=== PATIENT | female | born 1945 | race Caucasian/White ===

== ENCOUNTER 2019-11-06 15:23 | Outpatient (CLI) | payer MEDICARE, SELFPAY ==
--- NOTE | ~2019-11-06 | US_ITS ---
EXAMINATION: US venous doppler LE RT DATE: 11/06/2019 16:03 INDICATION: Right lower limb pain TECHNIQUE: Gan scale images without and with compression and Doppler images of the right lower extre mity veins were obtained. COMPARISON: None FINDINGS: The right common femoral vein, profunda femoral vein, femoral vein, popliteal vein, peronea l trunk, posterior tibial veins, and greater saphenous vein are patent. IMPRESSION: 1. Patent right lower extremity veins. No evidence of deep venous thrombosis. Reviewed, dictated and finalized at location A.
--- NOTE | ~2019-11-06 | XR_ITS ---
XR knee RT 3V DATE: 11/06/2019 16:05 INDICATION: Right knee pain. No known injury. TECHNIQUE: Doland, AP and lateral views COMPARISON: None FINDINGS: No fracture or dislocation or joint effusion. No periosteal reaction or bone destruction. J oint spaces are preserved. No right hepatic intra-articular loose body or chondrocalcinosis. IMPRESSION: No significant abnormality Reviewed, dictated and finalized at location B. IMPRESSION: No significant abnormality
== END 2019-11-06 15:24 | disposition home or self-care (01) ==
LOC: ANHIMG 15:25
PROVIDERS: PCP Family Medicine; Visit Provider Family Medicine
DX: M25.561 Pain in right knee (principal); M79.89 Other specified soft tissue disorders
CPT/HCPCS: 73562; 93971

== ENCOUNTER 2020-01-22 08:15 | Outpatient (RCR) | payer MEDICARE, SELFPAY ==
--- NOTE | 2019-12-24 10:52 | LSVTBIG ---
PHYSICAL THERAPY EVALUATION FOR LSVT BIG Thank you for referring Ami Rivera to [facility].? The patient is scheduled to be seen for therapy? 2x/week for 4 weeks. Please review, sign, date and return this plan of care IVETTE. I agree with and certify that the following plan of care is medically necessary. Referring Physician Date Attending Provider: Gavin Meredith MD Physical Therapy Evaluation Outpatient Past Medical History Neurological History Hx Parkinson's Disease Yes Evaluation Information Problem Diagnosis Parkinson's Disease Cause insidious Self Report Pain Level 0 Pain Score Pain Score 0: Self Report Parkinson's Related History Diagnosis/Stage Date Of Initial 2009 Diagnosis What Were Your Initial Symptoms Of loss of smell 2002, 2007-: Parkinson's Disease? handwriting worsened and balance difficulties Do You Have A Tremor? No Medication For Parkinson's Disease avolac, carbadopa/levadopa, synamet In What Ways Are Your Medications For assists with freezing and Parkinson's Helpful? walking; would not be able to function without it Do You Experience On/Off Symptoms? yes, freezing increases when Please Describe time to take next dose of medication Do You Experience Dyskinesias? yes Have You Had Neurosurgery? Please none Describe Have You Had Orthopedic Surgery? 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 Changes In Speed Of , tree roots, etc) Movement With Walking,Getting Dressed, Increased Difficulty Getting Into/Out Of Bed Or Chairs, Balance Impairments What Are Your Current Symptoms? dyskinesia, freezing, difficulty walking a straight line What Is The Most Significant Problem feeling increased anxiety with Related To Movement Today? Are There Any folding laundry; takes a Activities That You Now Need Help With couple
--- NOTE | 2019-12-26 08:29 | OTOPEVAL ---
Addendum entered by Jaime Barry, RADHA/Gerard, CHT 12/26/19 08:29: Note created in error - Please refer to LSVT Evaluation Note Original Note: Thank you for referring Ami Rivera to [facility].? The patient is scheduled to be seen for therapy? ____x/week for ___ weeks. Please review, sign, date and return this plan of care IVETTE. I agree with and certify that the following plan of care is medically necessary. Referring Physician Date Admitting Provider: Attending Provider: Gavin Meredith MD Referring Provider:
--- NOTE | 2019-12-26 08:29 | LSVTBIG ---
OCCUPATIONAL THERAPY EVALUATION REPORT 12/26/2019 Thank you for referring Ami Rivera to [facility].? The patient is scheduled to be seen for therapy? 2x/week for 4 weeks for LSVT BIG treatment program for PD. Please review, sign, date and return this plan of care IVETTE. I agree with and certify that the following plan of care is medically necessary. Referring Physician Date Referring Provider: Gavin Meredith MD *LSVT BIG Evaluation Therapy Discipline Therapy Discipline Therapy Discipline Occupational Therapy Therapy Assessment Status Assessment Status Assessment Status Evaluation Outpatient Past Medical History Neurological History Hx Parkinson's Disease Yes Evaluation Information Problem Diagnosis Parkinson's Disease Pain Assessment Timing of Pain Assessment Timing of Pain Assessment Assessment Self Report Self Report Pain Level 0 Pain Score Pain Score 0: Self Report Parkinson's Related History Parkinson's Related History Diagnosis/Stage Date Of Initial 2009 Diagnosis What Were Your Initial Symptoms Of loss of smell 2002, 2007-, Parkinson's Disease? handwriting worsened and balance difficulties Do You Have A Tremor? No Medication For Parkinson's Disease avolac, carbadopa/levadopa, synamet In What Ways Are Your Medications For assists with freezing and Parkinson's Helpful? walking; would not be able to function without it Do You Experience On/Off Symptoms? yes, freezing increases when Please Describe time to take next dose of medication Do You Experience Dyskinesias? yes Have You Had Neurosurgery? Please none Describe Have You Had Orthopedic Surgery? 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 full flight of steps, states she is very cautious going up and down steps) - radha comes over to carry laundry up /down; Cooks and cleans - states she breaks up these tasks throughout the week so she can complete them when she feels good /with medication dosages Motor Symptoms Motor Symptoms When Did You First Start To Notice Makes sure she's aware of her Changes In Movement You Associate with surroundings, especially in PD unfamiliar environments ( Query Text:i.e. Changes In Speed Of uneven sidewalks, tree roots, Movement With Walking,Getting Dressed,
--- NOTE | 2020-01-21 09:12 | LSVTBIG ---
OCCUPATIONAL THERAPY DISCHARGE NOTE 01/21/2020 Thank you for referring Ami Rivera to [facility] The patient is being discharged from OT with HEP. She is currently independent with LSVT HEP and utilizing strategies for improved movement quality. Please review, sign, date and return this D/C Note IVETTE. I agree with and certify that the following plan of care is medically necessary. Referring Physician Date Admitting Provider: Attending Provider: Gavin Meredith MD Referring Provider: *LSVT BIG Re-Evaluation & Discharge Evaluation Information Problem Diagnosis Parkinson's Disease Additional Evaluation Detail Ami is a 74 year-old, right handed female who has been participating in outpatient occupational and physical therapy for treatment of his neurological movement disorder , PD, utilizing LSVT BIG treatment program. She has been very compliant and cooperative throughout the program. The program has included a series of repetitive exercises and functional tasks targeting flexibility, challenging his balance, facilitating big movements, and big posture. These exercises are aimed at increased amplitude of movement while addressing the sensorimotor mismatch of PD with the end goal of retraining her perception of normal movement. Subjective Information Patient reports that this Query Text:As Reported By Patient/ program has helped her come up Family with strategies to help her move better. She notes that she thinks of one internal cue of BIG to move better. She notes improvements with her ability to complete handwriting, opening containers, putting money back into her wallet, folding laundry, stairs, walking with less freezing, buttons, and has been sleeping better. Pain Assessment Timing of Pain Assessment Timing of Pain Assessment Re-assessment Self Report Self Report Pain Level 0 Pain Score Pain Score 0:
--- NOTE | 2020-01-22 09:06 | LSVTBIG ---
PHYSICAL THERAPY DISCHARGE NOTE Thank you for referring Ami Rivera to [facility].? Please review, sign, date and return this plan of care IVETTE. I agree with and certify that the following plan of care is medically necessary. Referring Physician Date Attending Provider: Gavin Meredith MD Discharge Diagnosis Parkinson's Disease Cause insidious Subjective Information Ami has participated in LSVT Query Text:As Reported By Patient/ BIG program for Parkinson's Family Disease for the last 4 weeks. She reports that she feels as though she is sleeping better, moving better, moving her arms better while walking. Pain Assessment Timing of Pain Assessment Timing of Pain Assessment Re-assessment Self Report Self Report Pain Level 0 Self Report Pain Assessment Balance Assessment Tinnetti Balance 28/28 Interpretation of Scores Low risk for falls (>24) CORDERO Balance Evaluation Total Score 56/56 Time Up Go (TUG) Timed Up and Go Test (TUG) (Seconds) 7 Assistive Devices None Comments 1month ago = 8seconds 5 Time Sit to Stand Time in Seconds 8.86 5 Time Sit to Stand Comments 1month ago = 12.86 Dynamic Gait Index Total Score 24/24 Functional Gait Assessment Total Score 29/30 Gait Assessment 6 Minute Walk Total Distance (feet) 1,573 6 Minute Walk Gait Speed Score (feet/ 4.36 second) 6 Minute Gait Comments normal arm swing, good heel strike and toe off 1month ago = 1217, 3.38ft/ second PT Clinical Summary Ami has met her functional goals at this time. She demonstrates normal or nearly normal balance, gait speed, and functional strength as evidenced by the TUG, 5xSTS, Cordero Balance Assessment, functional gait assessment, and Tinnetti tests. We will discharge from PT at this time . PT Services Indicated Yes Rehabilitation Potential Good Patient/Caregiver's Personal Goals for improve freezing Rehabilitation Potential Barriers to Goal Achievements None Support Requirements For Optimal None Lutz Patient/Caregiver Informed of Benefits/ Yes Risks of Rehabilitation Patient/
== END 2020-01-22 11:07 | disposition home or self-care (01) ==
LOC: ANHPT 08:15
PROVIDERS: PCP Family Medicine; Visit Provider Psychiatry & Neurology Neurology
DX: G20 Parkinson's disease (principal)
CPT/HCPCS: 97110; 97116; 97161; 97165

== ENCOUNTER 2021-02-10 08:44 | Outpatient (CLI) | payer MEDICARE, SELFPAY ==
--- NOTE | ~2021-02-10 | MM_ITS ---
EXAMINATION: MM screening james BI w lucien HISTORY: Screening mammogram TECHNIQUE: Craniocaudal and mediolateral oblique 3-D tomosynthesis images were obtained and synthetic 2-D images were generated. CAD analysis was submitted and interpreted. COMPARISON: No prior mammogram is available for comparison at this institution. BREAST PARENCHYMAL COMPOSITION: The breasts are heterogeneously dense, which may obscure small masses . FINDINGS: There is no evidence of suspicious mass, calcification, or architectural distortion to sugg est malignancy in either breast. There has been no suspicious interval change. IMPRESSION: 1. No mammographic evidence of malignancy. 2. Recommend routine screening mammography in one year. BI-RADS Category 1: Negative Reviewed, dictated and finalized at location A.
--- NOTE | ~2021-02-10 | DEXA_ITS ---
Bone Density Report Name: Ami Rivera Age: 75 Sex: Female Ethnicity: White Date of : 1945 Indication: postmenopausal; Referring Provider: Clary Johnson Study: Bone densitometry was performed. Exam Date: February 10, 2021 Accession number: [id number] Bone Density: Region BMD T-score Z-score Classification AP Spine (L1, L2) 0.770 -1.9 0.3 Osteopenia Femoral Neck (Left) 0.512 -3.0 -1.0 Osteoporosis Total Hip (Left) 0.695 -2.0 -0.3 Osteopenia Total Hip Bilateral Avg 0.651 -2.4 -0.7 Osteopenia Femoral Neck (Right) 0.511 -3.0 -1.0 Osteoporosis Total Hip (Right) 0.606 -2.8 -1.0 Osteoporosis World Health Organization criteria for BMD impression classify patients as: Normal (T-score at or above -1.0), Osteopenia (T-score between -1.0 and -2.5), or Osteoporosis (T-score at or below -2.5). 10-year Fracture Risk: FRAX not reported because: Some T-score for Spine Total or Hip Total or Femoral Neck at or below -2.5 Treated for osteoporosis Clinical Information Provided by Patient: Is being treated for osteoporosis Has used the following medications: Fosamax (i.e. alendronate), Vitamin D Patient maximum height was 64 Menopause Age: 52 Does not regularly consume dairy products Drinks caffeinated beverages Onset of menses at age 15 Number of children 0 Impression: The patient has osteoporosis, based on the Left Femoral Neck T-score. Discussion: It is important to ask patients whether they are taking their medications and to encourage continued and appropriate compliance with their osteoporosis therapies to reduce fracture risk. It is also important to review their risk factors and encourage appropriate calcium and vitamin D intakes, exercise, fall prevention and other lifestyle measures. Follow-Up: Consider a repeat BMD and Vertebral Fracture Assessment (VFA) exam in 2 years or sooner if medically necessary, to reassess this patient's status. Reported by: EDWARD on 02/10/2021 9:12:00 AM. Reviewed, dictated and finalized at location A. BRIANA
== END 2021-02-10 08:45 | disposition home or self-care (01) ==
PROVIDERS: PCP Family Medicine; Visit Provider Nurse Practitioner
DX: Z12.31 Encounter for screening mammogram for malignant neoplasm of breast (principal); Z78.0 Asymptomatic menopausal state; M85.88 Other specified disorders of bone density and structure, other site; M81.0 Age-related osteoporosis without current pathological fracture; M85.852 Other specified disorders of bone density and structure, left thigh; M85.851 Other specified disorders of bone density and structure, right thigh
CPT/HCPCS: 77063; 77067; 77080

== ENCOUNTER 2021-08-07 10:03 | Emergency (ER) | payer MEDICARE, SELFPAY ==
--- NOTE | ~2021-08-07 | CT_ITS ---
EXAMINATION: CTA chest PE protocol DATE: 08/07/2021 14:28 INDICATION: Shortness of breath, COVID 19 TECHNIQUE: Computed tomography angiography (CTA) of the chest was performed with 100 mL Omnipaque-350 intravenous contrast timed to evaluate the pulmonary arteries. Coronal maximum intensity projection 3D-reconstructions were created by the technologist. The dose-length product (DLP) was 179.43 mGy-cm. Automated exposure control and iterative reconstruction technique were employed. COMPARISON: None. FINDINGS: The pulmonary arteries are well-opacified. No pulmonary embolism is identified. There are p atchy nodular and groundglass opacities scattered throughout the lungs. There is no pleural effusion or pneumothorax. No pathologically enlarged thoracic lymph nodes are identified. The heart size is no rmal. There is a small sliding hiatal hernia. There is mild thoracic spondylosis. IMPRESSION: 1. No pulmonary embolus. 2. Multifocal pneumonia, likely COVID 19 pneumonia. Reviewed, dictated and finalized at location F.
--- NOTE | 2021-08-07 10:39 | ED.GENADULT ---
HPI - General Adult General Chief complaint: Unspecified Stated complaint: throat pain, seen at last noc Time Seen by Provider: 08/07/21 10:14 Source: patient and family Mode of arrival: ambulatory Limitations: no limitations History of Present Illness HPI narrative: 75-year-old female with history of Parkinson's disease presenting to the emergency department for evaluation of multiple days of nasal congestion and sore throat. Patient initially thought that her symptoms were due to seasonal allergies but she is unable to take decongestants due to her underlying Parkinson's. Patient did have follow-up with a prompt care yesterday and was started on a Z-Wilbert. Patient did start taking these medications last night. Patient presented to the emergency department today complaining of worsening sore throat. Patient denies any cough chest pain or shortness of breath. Patient did receive her flu and COVID-vaccine. Related Data Home Medications Medication Instructions Recorded Confirmed cholecalciferol (vitamin D3) 50 50 mcg PO DAILY 12/16/19 03/16/21 mcg (2,000 unit) capsule cranberry 400 mg capsule 400 mg PO DAILY 12/16/19 03/16/21 Allergies Allergy/AdvReac Type Severity Reaction Status Date / Time No Known Allergies Allergy Verified 08/07/21 10:56 Review of Systems Review of Systems: CONSTITUTIONAL: Denies fever, chills, or sweats. EYES: Denies visual changes, redness, or discharge. ENT: See HPI CARDIOVASCULAR: Denies chest pain, palpitations, or edema. RESPIRATORY: Denies cough or dyspnea. GASTROINTESTINAL: Denies abdominal pain, nausea, vomiting, or diarrhea. GENITOURINARY: Denies dysuria or hematuria. SKIN: Denies rash or itching. MUSCULOSKELETAL: Denies back pain, joint pain, or myalgia. NEUROLOGIC: Denies headache, numbness, or weakness. [facility] Past Medical History Medical History Dyslipidemia Parkinson disease Unspecified osteoarthritis, unspecified site Vitamin B12 deficiency Vitamin D deficiency Surgical History Surgical History History of bunionectomy of both great toes 2009 and 2010 Family History Family History Other Family history of coronary artery disease Social History Social History Smoking status: Never smoker Second hand tobacco smoke exposure: No Alcohol intake: never Substance use: never Substance use type: does not use Gender identity (if verbalized by the patient): Female Spiritual care concerns: No Exam Narrative: APPEARANCE: Well appearing, no pain, no distress, well-nourished. HEAD: normocephalic, atraumatic. EYES: PERRLA/EOMI, conjunctivae clear. NOSE: Normal no drainage EARS:TMS clear with good light reflex. THROAT: Mild erythema of posterior pharynx. No edema, no asymmetry. No swelling or abscess. NECK: Supple. No adenopathy, no masses. Some stridor RESPIRATORY: Airway patent, respirations nonlabored. Clear to auscultation bilaterally, no rales, rhonchi, wheezing. CARDIOVASCULAR: Regular rate and rhythm without murmurs rubs or gallops. ABDOMINAL: Soft, nontender, nondistended, normal bowel sounds MUSCULOSKELETAL: Moves all extremities. Strength/ROM intact, No edema, No calf tenderness. NEURO: Alert. Cranial nerves II through XII intact. Grossly intact SKIN: Warm, dry. Normal Color Course Course Emergency Course: Patient did test positive for COVID. Patient was initially febrile upon arrival. Patient's fever did improve with treatment with antipyretics. Patient feels improved with treatment. Patient is requesting discharge to home. Heart rate is also improved. Resting heart rate is closer to 100. CTA was negative for pulmonary embolism. CTA did show evidence of COVID-pneumonia as well. Patient was encouraged to have close contact with her neurologist
[2021-08-07 10:53] VITALS: BP 152/71; PULSE 120; RESP 20; TEMP 38.6; O2SAT 94
[2021-08-07 10:56] VITALS: PULSE 120
[2021-08-07] MEDS: SODIUM CHLORIDE 0.9% IV 1,000 ML 999 ML IV CONT ×2 (11:02→13:10)
[2021-08-07 11:32] LABS: Influenza A QL RT-PCR Negative (Negative); Influenza B QL RT-PCR Negative (Negative); SARS-CoV-2 RNA PCR Positive
[2021-08-07 11:49] VITALS: BP 136/70; PULSE 114; RESP 24; TEMP 37.3; O2SAT 97
[2021-08-07 13:09] VITALS: BP 137/65; PULSE 108; RESP 19; O2SAT 94
[2021-08-07 13:10] LABS: Basophils Percent Auto 0.3 % (0.2-1.2); Hemoglobin 14.2 g/dL (12.0-15.0); Immature Granulocyte Absolute 0.05 K/mm3 (0.00-0.031); Immature Granulocyte Percent A 0.5 % (0-0.5); Lymphocytes Absolute Auto 0.33 K/mm3 (0.9-3.2); Lymphocytes Percent Auto 3.3 % (18.3-44.2); Mean Corpuscular HGB Conc 33.8 g/dl (32-36); Mean Corpuscular Hemoglobin 30.1 pg (26-34); Mean Platelet Volume 11.1 fl (7.4-10.4); Monocytes Absolute Auto 0.8 K/mm3 (0.1-0.6); Monocytes Percent Auto 7.7 % (2.6-8.5); Neutrophils Absolute Auto 8.9 K/mm3 (1.3-6.7); Neutrophils Percent Auto 88.2 % (45.5-73.1); Platelet Count Result 162 k/mm3 (150-375); Red Blood Count 4.72 M/mm3 (4.2-5.4); Red Cell Distribution Width 11.9 % (11.5-14.5); White Blood Count 10.1 K/mm3 (4.5-10.0)
[2021-08-07] MEDS: IBUPROFEN 600 MG TABLET PO (13:10)
--- NOTE | 2021-08-07 13:20 | PC.NURSE ---
called pt silas at [phone] and gave update on pt status per request
[2021-08-07 13:24] LABS: Alanine Aminotransferase 6 U/L (4-35); Albumin Level 4.1 g/dL (3.5-5.1); Alkaline Phosphatase 80 U/L (38-126); Anion Gap 7 mmol/L (8-16); Aspartate Amino Transferase 21 U/L (14-36); Bilirubin,Total 0.8 mg/dL (0.2-1.3); Blood Urea Nitrogen 13 mg/dL (7-17); Calcium 8.2 mg/dL (8.4-10.2); Carbon Dioxide 25 mmol/L (22-30); Chloride 103 mmol/L (98-107); Estimated CRCL calculation 71 ml/min; Estimated Glomerular Filt Rate > 60; Glucose 108 mg/dL (65-110); Potassium 3.3 mmol/L (3.4-5.0); Sodium 135 mmol/L (137-145)
[2021-08-07 14:39] VITALS: BP 135/68; PULSE 114; RESP 22; O2SAT 98
[2021-08-07 15:31] VITALS: PULSE 110; RESP 16; O2SAT 96
== END 2021-08-07 15:32 | disposition home or self-care (01) ==
PROVIDERS: Emergency Provider Emergency Medicine; PCP Nurse Practitioner
DX: U07.1 COVID-19 (principal); J12.82 Pneumonia due to coronavirus disease 2019; G20 Parkinson's disease; E78.5 Hyperlipidemia, unspecified; M19.90 Unspecified osteoarthritis, unspecified site; E53.8 Deficiency of other specified B group vitamins; E55.9 Vitamin D deficiency, unspecified
CPT/HCPCS: 36415; 71275; 80053; 85025; 85380; 87081; 87502; 87880; 96361; 96365; 99284; A9270; C9803; J0131; J7030; Q9967; U0003; U0005

== ENCOUNTER 2021-08-08 09:43 | Emergency (ER) | payer MEDICARE, SELFPAY ==
--- NOTE | ~2021-08-08 | XR_ITS ---
EXAMINATION: XR soft tissue neck DATE: 08/08/2021 14:22 INDICATION: Foreign body sensation. Sore throat. TECHNIQUE: 2 views the neck soft tissues were obtained. COMPARISON: None. FINDINGS: The adenoids, palatine tonsils, prevertebral soft tissues, epiglottis, and airway are aurora l. No radiopaque foreign body. There is severe cervical spondylosis. IMPRESSION: 1. Normal neck soft tissues. Reviewed, dictated and finalized at location A.
[2021-08-08 09:52] VITALS: BP 126/68; PULSE 105; RESP 14; TEMP 37.1; O2SAT 99
[2021-08-08 13:29] VITALS: BP 121/76; PULSE 92; RESP 22; O2SAT 96
[2021-08-08 13:33] VITALS: RESP 22; O2SAT 96
--- NOTE | 2021-08-08 13:44 | ED.GENADULT ---
HPI - General Adult General Chief complaint: Unspecified Stated complaint: COVID+, pill in throat Time Seen by Provider: 08/08/21 13:36 History of Present Illness HPI narrative: Patient is a 75-year-old female with a history of Parkinson's who presents emergency department with throat pain with swallowing since yesterday. She states the pain developed after taking a Tylenol pill yesterday, and she states that she felt that the pill was stuck. No coughing, choking, difficulty breathing, hematemesis, abdominal pain. The pain/foreign body sensation at rest has gone down, but she is still having some irritation/ mild pain with swallowing. Denies history of difficulty swallowing. She has been tolerating her oral medications. Related Data Home Medications Medication Instructions Recorded Confirmed cholecalciferol (vitamin D3) 50 50 mcg PO DAILY 12/16/19 03/16/21 mcg (2,000 unit) capsule cranberry 400 mg capsule 400 mg PO DAILY 12/16/19 03/16/21 Allergies Allergy/AdvReac Type Severity Reaction Status Date / Time No Known Allergies Allergy Verified 08/07/21 10:56 Review of Systems Review of Systems: Gen.: Denies fevers or chills Eyes: Denies eye pain or visual change ENT: Reports foreign body sensation in throat. Denies congestion Respiratory: Denies shortness of breath or cough CV: Denies chest pain or palpitations GI: Denies abdominal pain nausea, emesis or diarrhea denies burning, urgency, frequency or hematuria Musculoskeletal: Denies back pain or muscle pain Neuro: Denies numbness, tingling, weakness or focal weakness Skin: Denies rash Except as documented, all other systems reviewed and negative All systems reviewed & are unremarkable except as noted in HPI and below PMFSH Past Medical History Medical History Dyslipidemia Parkinson disease Unspecified osteoarthritis, unspecified site Vitamin B12 deficiency Vitamin D deficiency Surgical History Surgical History History of bunionectomy of both great toes 2009 and 2010 Family History Family History Other Family history of coronary artery disease Social History Social History Smoking status: Never smoker Second hand tobacco smoke exposure: No Alcohol intake: never Substance use: never Substance use type: does not use Gender identity (if verbalized by the patient): Female Spiritual care concerns: No Exam Narrative: APPEARANCE: No acute distress, nontoxic, resting in bed EYES: EOMI HEENT: Normocephalic, atraumatic. No erythema or FB visualized in throat. RESPIRATORY: No respiratory distress. Clear to auscultation bilaterally with no rhonchi wheezing or rales. CARDIOVASCULAR: Regular rate and rhythm without murmurs rubs or gallops. ABDOMINAL: Soft, nontender, nondistended, no rebound or guarding MUSCULOSKELETAL: Moves all extremities. No clubbing, cyanosis or edema. NEURO: Resting tremor present. Awake and alert. Following commands, speech normal. SKIN: Warm, dry. No rashes lesions or abrasions PSYCHIATRIC: Normal affect/mood Course Vital Signs Vital signs: Vital Signs Temperature 98.7 F 08/08/21 09:52 Pulse Rate 105 H 08/08/21 09:52 Respiratory Rate 14 08/08/21 09:52 Blood Pressure 126/68 08/08/21 09:52 Pulse Oximetry 99 08/08/21 09:52 Temperature 98.7 F 08/08/21 09:52 Pulse Rate 98 08/08/21 15:34 Respiratory Rate 20 08/08/21 15:34 Blood Pressure 125/65 08/08/21 15:34 Pulse Oximetry 96 08/08/21 15:34 Medical Decision Making [facility] Narrative Medical decision making narrative: 75-year-old female here with foreign body sensation in throat after swallowing a Tylenol pill yesterday. Improved after sucralfate, no foreign body visualized on x-ray. Low suspicion for aspiration, as patient did no
[2021-08-08] MEDS: SUCRALFATE 1 GM TABLET PO (14:12)
--- NOTE | 2021-08-08 14:14 | PC.NURSE ---
Pt taken to X-ray
[2021-08-08 14:57] VITALS: BP 127/71; PULSE 97; RESP 20; O2SAT 97
[2021-08-08 15:34] VITALS: BP 125/65; PULSE 98; RESP 20; O2SAT 96
== END 2021-08-08 15:37 | disposition home or self-care (01) ==
PROVIDERS: Emergency Provider Emergency Medicine; PCP Nurse Practitioner Women's Health
DX: R07.0 Pain in throat (principal); U07.1 COVID-19; G20 Parkinson's disease; E78.5 Hyperlipidemia, unspecified; M19.90 Unspecified osteoarthritis, unspecified site; E53.8 Deficiency of other specified B group vitamins; E55.9 Vitamin D deficiency, unspecified
CPT/HCPCS: 70360; 99283; A9270

== ENCOUNTER 2021-11-09 12:48 | Emergency (ER) | payer MEDICARE, SELFPAY ==
--- NOTE | ~2021-11-09 | XR_ITS ---
EXAMINATION: XR chest 2V DATE: 11/09/2021 13:14 INDICATION: Chest pain TECHNIQUE: PA and lateral views of the chest are obtained. COMPARISON: None available FINDINGS: The lungs are free of acute opacities. No pleural effusion or pneumothorax. The cardiomedia stinal silhouette is normal. There is moderate thoracic spondylosis. IMPRESSION: 1. No acute cardiopulmonary abnormality. Reviewed, dictated and finalized at location B.
--- NOTE | 2021-11-09 12:50 | ECG_ITS ---
Measurements Intervals Huger Rate: 81 P: 55 LA: 134 QRS: -3 QRSD: 82 T: 27 QT: 363 QTc: 423 Interpretive Statements SINUS RHYTHM EARLY PRECORDIAL R/S TRANSITION BORDERLINE T WAVE ABNORMALITY- INFERIOR LEADS BASELINE WANDER- II, III BORDERLINE ECG Electronically Signed On 11-09-2021 12:57:16 CDT by Jerome Villarreal D.O.
[2021-11-09 12:56] VITALS: BP 104/76; PULSE 91; RESP 24; TEMP 36.3; O2SAT 96
[2021-11-09 13:01] VITALS: PULSE 80; RESP 21; O2SAT 95
--- NOTE | 2021-11-09 13:01 | ED.CHESTPAIN ---
HPI - Chest Pain General Chief Complaint: Chest Pain Stated Complaint: CP Time Seen by Provider: 11/09/21 13:00 Source: patient, RN notes reviewed and old records reviewed Mode of arrival: ambulatory Limitations: no limitations History of Present Illness HPI narrative: 76 years old white female dropped off by her to the emergency room because intermittent episodes of tightness retrosternal go to her jaws, lastS between 10 and 15 minutes each time at rest. Patient denies any similar symptoms at with exertion. Patient been boxing twice a week for parkinsonism for the last 6 years without any symptoms. Patient denies aggravating factors, she gets better if she remaining still, with deep breathing. Currently patient is asymptomatic, last spell of chest tightness was last night at 8 PM. History of hyperlipidemia and parkinsonism. She denies any smoking, drinking or marijuana. Her father have history of coronary artery disease. Related Data Home Medications Medication Instructions Recorded Confirmed cholecalciferol (vitamin D3) 50 50 mcg PO DAILY 12/16/19 09/15/21 mcg (2,000 unit) capsule cranberry 400 mg capsule 400 mg PO DAILY 12/16/19 09/15/21 denosumab 60 mg/mL subcutaneous 60 mg subcut [id number] 09/09/21 09/15/21 syringe (Prolia) Allergies Allergy/AdvReac Type Severity Reaction Status Date / Time No Known Allergies Allergy Verified 09/15/21 10:03 Review of Systems Review of Systems: All systems reviewed & are unremarkable except as noted in HPI and below PMFSH Past Medical History Medical History COVID Dyslipidemia Parkinson disease Unspecified osteoarthritis, unspecified site Vitamin B12 deficiency Vitamin D deficiency Surgical History Surgical History History of bunionectomy of both great toes 2009 and 2010 Family History Family History Other Family history of coronary artery disease Social History Social History Smoking status: Never smoker Second hand tobacco smoke exposure: No Alcohol intake: never Substance use: never Substance use type: does not use Gender identity (if verbalized by the patient): Female Spiritual care concerns: No Exam Narrative: General appearance: Well-developed, well-nourished Skin: Normal color Head: Normocephalic, nontraumatic Eyes: Clear conjunctiva ENT: Oropharynx normal, ears normal, nose normal Neck: Supple, nontender Chest and respiratory: Airway patent, no respiratory distress, no accessory muscle use Heart: Regular rate/rhythm Abdomen: Soft, nontender, no organomegaly, quiet bowel sounds Vascular: Normal peripheral pulses, normal capillary refill. Musculoskeletal: Normal range of motion, nontender back Neurologic: Alert and oriented ?3, [employer] is normal as tested, no gross motor deficit Course Course Emergency Course: Work-up today showed no significant finding to explain patient condition. Patient episodes of pain usually comes at rest. My differential diagnosis are stress-induced, GERD, spontaneous esophageal spasm. Patient reported that she have trouble swallowing which gradually getting worse over the last few months. Parkinsonism could be the underlying cause. I plan to discharge patient on aspirin and omeprazole, and was advised to follow-up with infection preventionist for further evaluation. Vital Signs Vital signs: Vital Signs Temperature 36.3 C L 11/09/21 12:56 Pulse Rate 91 11/09/21 12:56 Respiratory Rate 24 H 11/09/21 12:56 Bl
[2021-11-09 13:06] LABS: Basophils Absolute Auto 0.1 K/mm3 (0.0-0.1); Basophils Percent Auto 0.9 % (0.2-1.2); Eosinophils Absolute Auto 0.2 K/mm3 (0-0.3); Eosinophils Percent Auto 2.7 % (0-4.4); Hematocrit 41.8 % (37.0-47.0); Hemoglobin 14.1 g/dL (12.0-15.0); Immature Granulocyte Absolute 0.02 K/mm3 (0.00-0.031); Immature Granulocyte Percent A 0.3 % (0-0.5); Lymphocytes Absolute Auto 1.84 K/mm3 (0.9-3.2); Lymphocytes Percent Auto 26.1 % (18.3-44.2); Mean Corpuscular HGB Conc 33.7 g/dl (32-36); Mean Corpuscular Hemoglobin 29.9 pg (26-34); Mean Corpuscular Volume 88.7 fl (80-100); Mean Platelet Volume 9.5 fl (7.4-10.4); Monocytes Absolute Auto 0.6 K/mm3 (0.1-0.6); Monocytes Percent Auto 8.7 % (2.6-8.5); Neutrophils Absolute Auto 4.3 K/mm3 (1.3-6.7); Neutrophils Percent Auto 61.3 % (45.5-73.1); Platelet Count Result 225 k/mm3 (150-375); Red Blood Count 4.71 M/mm3 (4.2-5.4); Red Cell Distribution Width 12.1 % (11.5-14.5)
[2021-11-09 13:15] VITALS: O2SAT 92
[2021-11-09 13:20] LABS: Prothrombin Time 12.9 Seconds (11.1-14.7)
[2021-11-09 13:21] LABS: Partial Thromboplastin Time 27.2 SECONDS (22.3-36.8)
[2021-11-09 13:22] LABS: Albumin Level 4.2 g/dL (3.5-5.1); Alkaline Phosphatase 69 U/L (38-126); Anion Gap 6 mmol/L (8-16); Aspartate Amino Transferase 22 U/L (14-36); Bilirubin,Total 0.5 mg/dL (0.2-1.3); Blood Urea Nitrogen 13 mg/dL (7-17); Calcium 8.5 mg/dL (8.4-10.2); Carbon Dioxide 34 mmol/L (22-30); Chloride 101 mmol/L (98-107); Estimated CRCL calculation 70 ml/min; Estimated Glomerular Filt Rate > 60; Glucose 92 mg/dL (65-110); Lipase 62 U/L (23-300); Potassium 3.8 mmol/L (3.4-5.0); Sodium 141 mmol/L (137-145)
[2021-11-09 13:30] VITALS: PULSE 79; RESP 18; O2SAT 97
[2021-11-09 13:34] LABS: Troponin I < 0.012 ng/mL (0.000-0.034)
[2021-11-09 14:10] LABS: Alanine Aminotransferase < 4 U/L (6-35)
[2021-11-09 15:02] VITALS: BP 126/78; PULSE 81; RESP 20; O2SAT 99
== END 2021-11-09 15:02 | disposition home or self-care (01) ==
PROVIDERS: Emergency Provider Emergency Medicine; PCP Family Medicine
DX: R07.9 Chest pain, unspecified (principal); G20 Parkinson's disease; E78.5 Hyperlipidemia, unspecified; Z86.16 Personal history of COVID-19; M19.90 Unspecified osteoarthritis, unspecified site
CPT/HCPCS: 36415; 71046; 80053; 83690; 84484; 85025; 85610; 85730; 93005; 99284

== ENCOUNTER 2022-01-11 19:22 | Emergency (ER) | payer MEDICARE, SELFPAY ==
[2022-01-11] VITALS (22 sets, daily range): BP systolic 137–167; BP diastolic 64–83; PULSE 84–101; RESP 14–22; TEMP 36.2; O2SAT 94–100
--- NOTE | ~2022-01-11 | CT_ITS ---
EXAMINATION: CT abdomen pelvis w con DATE: 01/11/2022 20:34 INDICATION: Epigastric pain and vomiting TECHNIQUE: Computed tomography (CT) of the abdomen and pelvis was performed with 100 mL Omnipaque-350 intravenous contrast. Automated exposure control and iterative reconstruction technique were employe d. The dose-length product was 470.09 mGy-cm. COMPARISON: None FINDINGS: Mild atelectasis in the bilateral lower lobes. Heart size is normal. Small amount of atherosclerotic coronary artery calcification. No pericardial or pleural effusion. Small sliding-type hiatal hernia. Liver, gallbladder, spleen, pancreas, bilateral adrenal glands and right kidney are normal. 1.[address] at the upper pole of the left kidney. No bowel obstruction. Normal appendix. Bladder and bilateral adnexa are unremarkable. The uterus is not identified and has likely been surgically resected. No fr ee intraperitoneal gas or fluid. No pathologically enlarged abdominal or pelvic lymphadenopathy. Mild lumbar levocurvature with severe spondylosis. IMPRESSION: 1. No acute intra-abdominal/pelvic process. 2. Small sliding-type hiatal hernia. Reviewed, dictated and finalized at location A.
--- NOTE | ~2022-01-11 | XR_ITS ---
EXAMINATION: XR chest 2V DATE: 01/11/2022 20:45 INDICATION: Chest pain TECHNIQUE: PA and lateral views of the chest were obtained. COMPARISON: Chest radiograph dated 11/09/[address] dated 01/11/2022 FINDINGS: Mild left basilar atelectasis. No other airspace opacities, pulmonary edema, pleural effusion or pneu mothorax. The cardiomediastinal silhouette is normal. Mild thoracic dextrocurvature with mild to mode rate spondylosis. There is some excreted contrast at the right renal collecting system likely related to the earlier contrast-enhanced CT. IMPRESSION: 1. Mild left basilar atelectasis. Reviewed, dictated and finalized at location A.
--- NOTE | 2022-01-11 19:23 | ECG_ITS ---
Measurements Intervals [place] Rate: 78 P: 34 DE: 134 QRS: -5 QRSD: 89 T: 29 QT: 347 QTc: 397 Interpretive Statements SINUS RHYTHM WITH SINUS ARRHYTHMIA RSR' IN V1 OR V2, PROBABLY NORMAL VARIANT BORDERLINE ST-T WAVE ABNORMALITY- ANTEROLAT/HIGH LAT LEADS BASELINE ARTIFACT- I, II, III, AVR, AVL, AVF, V5-V6 BORDERLINE ECG COMPARED TO ECG 11/09/2021 12:53:19 SINUS ARRHYTHMIA NOW PRESENT Electronically Signed On 01-11-2022 20:18:52 CDT by Jerome Villarreal D.O.
--- NOTE | 2022-01-11 19:34 | ED.GENADULT ---
HPI - General Adult General Chief complaint: Chest Pain Stated complaint: CHEST PAIN Time Seen by Provider: 01/11/22 19:25 History of Present Illness HPI narrative: 76-year-old female with history of Parkinson's disease presented to the emergency department for evaluation of some epigastric pain. Patient states that she had just finished her boxing class and was eating dinner when she had onset of epigastric pain. Patient states that she did have some emesis of phlegm but patient denies any significant nausea. Patient states that her symptoms are improving. Patient denies any associated shortness of breath. Related Data Home Medications Medication Instructions Recorded Confirmed cholecalciferol (vitamin D3) 50 50 mcg PO DAILY 12/16/19 11/14/21 mcg (2,000 unit) capsule cranberry 400 mg capsule 400 mg PO DAILY 12/16/19 11/14/21 denosumab 60 mg/mL subcutaneous 60 mg subcut [id number] 09/09/21 11/14/21 syringe (Prolia) Allergies Allergy/AdvReac Type Severity Reaction Status Date / Time No Known Allergies Allergy Verified 11/11/21 11:27 Review of Systems Review of Systems: CONSTITUTIONAL: Denies fever, chills, or sweats. EYES: Denies visual changes, redness, or discharge. ENT: Denies rhinorrhea, congestion, sore throat, or otalgia. CARDIOVASCULAR: Denies chest pain, palpitations, or edema. RESPIRATORY: Denies cough or dyspnea. GASTROINTESTINAL: See HPI GENITOURINARY: Denies dysuria or hematuria. SKIN: Denies rash or itching. MUSCULOSKELETAL: Denies back pain, joint pain, or myalgia. NEUROLOGIC: Denies headache, numbness, or weakness. [facility] Past Medical History Medical History COVID Dyslipidemia Parkinson disease Unspecified osteoarthritis, unspecified site Vitamin B12 deficiency Vitamin D deficiency Surgical History Surgical History History of bunionectomy of both great toes 2009 and 2010 Family History Family History Other Family history of coronary artery disease Social History Social History Smoking status: Never smoker Second hand tobacco smoke exposure: No Alcohol intake: never Substance use: never Substance use type: does not use Gender identity (if verbalized by the patient): Female Spiritual care concerns: No Exam Narrative: APPEARANCE: Well appearing, no pain, no distress, well-nourished. HEAD: normocephalic, atraumatic. EYES: PERRLA/EOMI, conjunctivae clear. NOSE: Normal no drainage EARS:TMS clear with good light reflex. THROAT: Pharynx clear, no exudate. NECK: Supple. No adenopathy, no masses. RESPIRATORY: Airway patent, respirations nonlabored. Clear to auscultation bilaterally, no rales, rhonchi, wheezing. CARDIOVASCULAR: Regular rate and rhythm without murmurs rubs or gallops. ABDOMINAL: Mild epigastric tenderness to palpation. MUSCULOSKELETAL: Moves all extremities. Strength/ROM intact, No edema, No calf tenderness. NEURO: Alert. Cranial nerves II through XII intact. SKIN: Warm, dry. Normal Color Course Course Emergency Course: Patient had negative serial troponins. Patient was afebrile with no leukocytosis. Patient's electrolytes were within normal limits. Patient had no elevated lipase. Chest x-ray and CT abdomen pelvis showed no acute abnormality. Patient is now tolerating p.o. Suspect esophageal spasm as a possible cause for her symptoms. Low concern for cardiac etiology. Patient does feel improved and is comfortable with the plan for discharge and close follow-up Vital Signs Vital signs: Vital Signs Temperature 97.1 F L 01/11/22 19:23 Pulse Rate 95 01/11/22 19:23 Respiratory Rate 20 01/11/22 19:23 Blood Pressure 138/64 01/11/22 19:23 Pulse Oximetry 98 01/11/22 19:23 Oxygen Delivery Room Air 01/11/22 19:23 Temperat
--- NOTE | 2022-01-11 19:59 | PC.NURSE ---
ASA discontinued per verbal order by Dr. Madsen.
[2022-01-11 20:01] LABS: Basophils Absolute Auto 0.1 K/mm3 (0.0-0.1); Basophils Percent Auto 0.7 % (0.2-1.2); Eosinophils Absolute Auto 0.2 K/mm3 (0-0.3); Eosinophils Percent Auto 2.2 % (0-4.4); Hematocrit 43.8 % (37.0-47.0); Hemoglobin 14.5 g/dL (12.0-15.0); Immature Granulocyte Absolute 0.03 K/mm3 (0.00-0.031); Immature Granulocyte Percent A 0.3 % (0-0.5); Lymphocytes Absolute Auto 2.05 K/mm3 (0.9-3.2); Lymphocytes Percent Auto 22.8 % (18.3-44.2); Mean Corpuscular HGB Conc 33.1 g/dl (32-36); Mean Corpuscular Hemoglobin 30.1 pg (26-34); Mean Corpuscular Volume 91.1 fl (80-100); Mean Platelet Volume 9.9 fl (7.4-10.4); Monocytes Absolute Auto 0.7 K/mm3 (0.1-0.6); Monocytes Percent Auto 7.6 % (2.6-8.5); Neutrophils Percent Auto 66.4 % (45.5-73.1); Platelet Count Result 236 k/mm3 (150-375); Red Blood Count 4.81 M/mm3 (4.2-5.4); Red Cell Distribution Width 12.1 % (11.5-14.5)
[2022-01-11 20:14] LABS: Prothrombin Time 12.3 Seconds (11.1-14.7)
[2022-01-11 20:15] LABS: Alanine Aminotransferase 6 U/L (6-35); Albumin Level 4.4 g/dL (3.5-5.1); Alkaline Phosphatase 72 U/L (38-126); Anion Gap 11 mmol/L (8-16); Aspartate Amino Transferase 25 U/L (14-36); Bilirubin,Total 0.7 mg/dL (0.2-1.3); Blood Urea Nitrogen 16 mg/dL (7-17); Carbon Dioxide 28 mmol/L (22-30); Chloride 100 mmol/L (98-107); Estimated CRCL calculation 59 ml/min; Estimated Glomerular Filt Rate > 60; Glucose 98 mg/dL (65-110); Lipase 93 U/L (23-300); Potassium 3.6 mmol/L (3.4-5.0); Sodium 139 mmol/L (137-145)
[2022-01-11 20:17] LABS: Partial Thromboplastin Time 26.2 SECONDS (22.3-36.8)
[2022-01-11 20:28] LABS: Troponin I < 0.012 ng/mL (0.000-0.034)
--- NOTE | 2022-01-11 20:34 | PC.NURSE ---
Patient off unit to CT.
[2022-01-11 23:13] LABS: Troponin I < 0.012 ng/mL (0.000-0.034)
== END 2022-01-11 23:47 | disposition home or self-care (01) ==
PROVIDERS: Emergency Provider Emergency Medicine; PCP Family Medicine
DX: K22.4 Dyskinesia of esophagus (principal); E78.5 Hyperlipidemia, unspecified; G20 Parkinson's disease; M19.90 Unspecified osteoarthritis, unspecified site; E55.9 Vitamin D deficiency, unspecified
CPT/HCPCS: 36415; 71046; 74177; 80053; 83690; 84484; 85025; 85610; 85730; 93005; 99284; Q9967

== ENCOUNTER 2022-03-23 00:31 | Day surgery (SDC) | payer MEDICARE, SELFPAY ==
[2022-03-14 09:06] VITALS: BMI 21.4
--- NOTE | 2022-03-22 10:25 | PM.HPGS ---
History of Present Illness History of Present Illness Consent: Risks, benefits, and alternatives have been discussed and questions answered. Patient agrees to proceed with procedure. Chief complaint: atypical chest pain; dysphagia Narrative: Ami Rivera is a 76 year old female Who was seen at [facility] 01/03/2022 for midsternal/epigastric pain and vomiting of white phlegm in the middle of eating baked fish and salad.? Denies radiation of pain or SOB. This was described as sharp ache and resolved within 30 minutes with no interventions. She was concerned about a heart attack at that time.? CT of the abdomen and pelvis done in the ER noted no acute abdominal process with a small sliding hiatal hernia and was placed on omeprazole diagnosed with an esophageal spasm (recs reviewed). LFT, CBC, troponin and lipase were normal as well (recs reviewed).? Similar episode in October as well. She denies typical GERD symptoms. She does report dysphagia to solids at suprasternal notch and midchest/epigastric region. She takes small bites and chews up her food really well due to this. Denies dysphagia with liquids or odynophagia. Last colonoscopy 10/26/[address] Steiner with small diverticuli but no polyps, Review of Systems Review of Systems: All systems reviewed & are unremarkable except as noted in HPI and below PMFSH Past Medical History Medical History COVID Dyslipidemia Dysphagia Epigastric pain Parkinson disease Unspecified osteoarthritis, unspecified site Vitamin B12 deficiency Vitamin D deficiency Surgical History Surgical History History of bunionectomy of both great toes 2009 and 2010 Family History Family History Other Family history of coronary artery disease Social History Social History Smoking status: Never smoker Second hand tobacco smoke exposure: No Alcohol intake: former Substance use: never Substance use type: does not use Living arrangements: with family Gender identity (if verbalized by the patient): Female Spiritual care concerns: No Meds Home Medications and Allergies Home Medications Medication Instructions Recorded Confirmed Type cholecalciferol (vitamin D3) 50 50 mcg PO DAILY 12/16/19 03/14/22 History mcg (2,000 unit) capsule cranberry 400 mg capsule 400 mg PO DAILY 12/16/19 03/14/22 History denosumab 60 mg/mL subcutaneous 60 mg subcut [id number] 09/09/21 03/14/22 History syringe (Prolia) simvastatin 20 mg tablet 20 mg PO QHS #90 tabs 09/09/21 03/14/22 Rx carbidopa 25 mg-levodopa 100 mg 1 tablet PO .5XD 03/06/22 03/14/22 History tablet carbidopa ER 25 mg-levodopa 100 mg 1 tablet PO HS 03/06/22 03/14/22 History tablet,extended release rasagiline 1 mg tablet 1 mg PO DAILY 03/06/22 03/14/22 History Allergies Allergy/AdvReac Type Severity Reaction Status Date / Time No Known Allergies Allergy Verified 03/14/22 09:08 Exam Const: General: alert Orientation/consciousness: patient oriented x3 Resp: Auscultation: clear to auscultation bilaterally Cardio: Rhythm: regular rhythm GI: GI Palp: Yes Soft to palpation and No Tenderness to palpation present (GI) Neuro: General: patient oriented x3 Assessment and Plan Assessment and plan (1) Dysphagia: Code(s): R13.10 - Dysphagia, unspecified Status: Acute Assessment and Plan: EGD with possible biopsy or dilatation or cautery.
[2022-03-23 06:52] VITALS: BP 139/76; PULSE 84; RESP 16; TEMP 36.2; O2SAT 98; BMI 21.7
[2022-03-23] MEDS: LACTATED RINGERS 1,000 ML 150 ML IV CONT (07:00)
--- NOTE | 2022-03-23 07:47 | WPDANESEPPF ---
Anes - Initial Pre Proc Eval Procedure: Operation Date: 03/23/22 08:00 Proposed Procedures p Esophagogastroduodenoscopy EGD - Anam Payne MD Date/Time: 03/23/22 07:47 Surgeon: Anam Payne MD Pre Op Diagnosis: atypical chest pain; dysphagia Patient Data Age: 76 Gender: F Height: 1.63 m Weight: 57.3 kg Last Vital Signs Temp 97.1 F L 03/23/22 06:52 Pulse 84 03/23/22 06:52 Resp 16 03/23/22 06:52 BP 139/76 03/23/22 06:52 Pulse Ox 98 03/23/22 06:52 O2 Del Method Room Air 03/23/22 06:52 Allergies Allergy/AdvReac Type Severity Reaction Status Date / Time No Known Allergies Allergy Verified 03/14/22 09:08 Home Medications Medication Instructions Recorded Confirmed Type cholecalciferol (vitamin D3) 50 50 mcg PO DAILY 12/16/19 03/14/22 History mcg (2,000 unit) capsule cranberry 400 mg capsule 400 mg PO DAILY 12/16/19 03/14/22 History denosumab 60 mg/mL subcutaneous 60 mg subcut [id number] 09/09/21 03/14/22 History syringe (Prolia) simvastatin 20 mg tablet 20 mg PO QHS #90 tabs 09/09/21 03/14/22 Rx carbidopa 25 mg-levodopa 100 mg 1 tablet PO .5XD 03/06/22 03/14/22 History tablet carbidopa ER 25 mg-levodopa 100 mg 1 tablet PO HS 03/06/22 03/14/22 History tablet,extended release rasagiline 1 mg tablet 1 mg PO DAILY 03/06/22 03/14/22 History Patient hx anesthesia problems: none Family hx anesthesia problems: none Results Review: All pre-operative results and documents have been reviewed as part of the pre-operative evaluation. COUNTS INCLUDE 234 BEDS AT THE [facility] Past Medical History Medical History COVID Dyslipidemia Dysphagia Epigastric pain Parkinson disease Unspecified osteoarthritis, unspecified site Vitamin B12 deficiency Vitamin D deficiency Surgical History Surgical History History of bunionectomy of both great toes 2009 and 2010 Family History Family History Other Family history of coronary artery disease Social History Social History Smoking status: Never smoker Second hand tobacco smoke exposure: No Alcohol intake: former Substance use: never Substance use type: does not use Living arrangements: with family Gender identity (if verbalized by the patient): Female Spiritual care concerns: No Anes - Eval Final PreProcedure Day of Procedure 03/23/22 07:47 Patient weight: normal Heart: regular rate and rhythm Lungs: clear to auscultation Airway: Mallampati scale class II Neurological: alert and oriented Last oral intake: >/= 8 hours ASA classification: III Emergent: no Anesthetic plan: proceed Anesthesia type and monitoring: general GIVS and standard monitoring Results Review: All pre-operative results and documents have been reviewed as part of the pre-operative evaluation. Informed Consent: The patient's anesthetic plan and its attendant risks and benefits were discussed with the patient/family/POA. Questions were solicited and answers provided to the satisfaction of the patient/family/POA.
[2022-03-23] MEDS: BENZOCAINE (*SP) 60 ML SPRAY CAN (HURRICAINE) 1 SPRAY MUCOUS MEM (07:58)
[2022-03-23 08:14] VITALS: BP 116/73; PULSE 80; RESP 21; O2SAT 95
[2022-03-23 08:24] VITALS: BP 117/75; PULSE 78; RESP 17; O2SAT 97
[2022-03-23 08:34] VITALS: BP 148/88; PULSE 74; RESP 17; O2SAT 98
[2022-03-23 08:44] VITALS: BP 153/92; PULSE 77; RESP 16; O2SAT 100
== END 2022-03-23 08:54 | disposition home or self-care (01) ==
PROVIDERS: PCP Family Medicine; Visit Provider Internal Medicine Gastroenterology
PROC: 0DJ08ZZ Inspection of Upper Intestinal Tract, Via Natural or Artificial Opening Endoscopic (ICD-10-PCS; CPT 43235; principal; 2022-03-23 08:00)
DX: R13.10 Dysphagia, unspecified (principal); K22.2 Esophageal obstruction; R07.89 Other chest pain; E78.5 Hyperlipidemia, unspecified; E53.8 Deficiency of other specified B group vitamins; E55.9 Vitamin D deficiency, unspecified; M19.90 Unspecified osteoarthritis, unspecified site; G20 Parkinson's disease
CPT/HCPCS: 43249; 43239; 88305; C1726; J2704; J7120

== ENCOUNTER 2022-06-19 01:00 | Day surgery (SDC) | payer MEDICARE, SELFPAY ==
[2022-06-06 09:34] VITALS: BMI 21.4
[2022-06-06 09:50] VITALS: BMI 21.4
--- NOTE | 2022-06-16 16:18 | PM.HPGS ---
History of Present Illness History of Present Illness Consent: Risks, benefits, and alternatives have been discussed and questions answered. Patient agrees to proceed with procedure. 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 She returns now for further treatment. Review of Systems Review of Systems: All systems reviewed & are unremarkable except as noted in HPI and below PMFSH Past Medical History Medical History COVID Dyslipidemia Dysphagia Epigastric pain Parkinson disease Unspecified osteoarthritis, unspecified site Vitamin B12 deficiency Vitamin D deficiency Surgical History Surgical History History of bunionectomy of both great toes 2009 and 2010 Family History Family History Other Family history of coronary artery disease Social History Social History Smoking status: Never smoker Second hand tobacco smoke exposure: No Alcohol intake: never Substance use: never Substance use type: does not use Lack of Transportation: No Lack of Food: Never True Current Housing: I Have Housing Concerned About Future Housing: No Difficulty Paying Gas/Electric Bills: No Difficulty Paying for Meds: No Currently Unemployed: No Education: Master's Degree or Higher Difficulty w/ Childcare or Family Care: No Living arrangements: with family Gender identity (if verbalized by the patient): Female Spiritual care concerns: No Meds Home Medications and Allergies Home Medications Medication Instructions Recorded Confirmed Type cholecalciferol (vitamin D3) 50 50 mcg PO DAILY 12/16/19 06/06/22 History mcg (2,000 unit) capsule cranberry 400 mg capsule 400 mg PO DAILY 12/16/19 06/06/22 History denosumab 60 mg/mL subcutaneous 60 mg subcut [id number] 09/09/21 06/06/22 History syringe (Prolia) simvastatin 20 mg tablet 20 mg PO QHS #90 tabs 09/09/21 06/06/22 Rx carbidopa 25 mg-levodopa 100 mg 1 tablet PO Q3H 03/06/22 06/06/22 History tablet carbidopa ER 25 mg-levodopa 100 mg 1 tablet PO HS 03/06/22 06/06/22 History tablet,extended release amantadine HCl 100 mg capsule 100 mg PO DAILY 06/06/22 06/06/22 History rasagiline 1 mg tablet See Rx Instructions .Route 06/14/22 06/19/22 Rx .COMPLEX #90 tabs Allergies Allergy/AdvReac Type Severity Reaction Status Date / Time No Known Allergies Allergy Verified 06/19/22 07:45 Exam Const: General: alert Orientation/consciousness: patient oriented x3 Resp: Auscultation: clear to auscultation bilaterally Cardio: Rhythm: regular rhythm GI: GI Palp: Yes Soft to palpation and No Tenderness to palpation present (GI) Neuro: General: patient oriented x3 Assessment and Plan Assessment and plan (1) Dysphagia: Code(s): R13.10 - Dysphagia, unspecified Status: Acute Assessment and Plan: EGD with possible biopsy or dilatation or cautery.
[2022-06-19 07:48] VITALS: BP 122/62; PULSE 80; RESP 18; TEMP 36.5; O2SAT 99
[2022-06-19] MEDS: LACTATED RINGERS 1,000 ML 150 ML IV CONT (07:58)
--- NOTE | 2022-06-19 08:28 | WPDANESEPPF ---
Anes - Initial Pre Proc Eval Procedure: Operation Date: 06/19/22 09:00 Proposed Procedures p Esophagogastroduodenoscopy - Anam Payne MD Date/Time: 06/19/22 08:28 Surgeon: Anam Payne MD Pre Op Diagnosis: dysphagia Patient Data Age: 76 Gender: F Height: 1.63 m Weight: 56.5 kg Last Vital Signs Temp 36.5 C 06/19/22 07:48 Pulse 80 06/19/22 07:48 Resp 18 06/19/22 07:48 BP 122/62 06/19/22 07:48 Pulse Ox 99 06/19/22 07:48 O2 Del Method Room Air 06/19/22 07:48 Allergies Allergy/AdvReac Type Severity Reaction Status Date / Time No Known Allergies Allergy Verified 06/19/22 07:45 Home Medications Medication Instructions Recorded Confirmed Type cholecalciferol (vitamin D3) 50 50 mcg PO DAILY 12/16/19 06/06/22 History mcg (2,000 unit) capsule cranberry 400 mg capsule 400 mg PO DAILY 12/16/19 06/06/22 History denosumab 60 mg/mL subcutaneous 60 mg subcut [id number] 09/09/21 06/06/22 History syringe (Prolia) simvastatin 20 mg tablet 20 mg PO QHS #90 tabs 09/09/21 06/06/22 Rx carbidopa 25 mg-levodopa 100 mg 1 tablet PO Q3H 03/06/22 06/06/22 History tablet carbidopa ER 25 mg-levodopa 100 mg 1 tablet PO HS 03/06/22 06/06/22 History tablet,extended release amantadine HCl 100 mg capsule 100 mg PO DAILY 06/06/22 06/06/22 History rasagiline 1 mg tablet See Rx Instructions .Route 06/14/22 06/19/22 Rx .COMPLEX #90 tabs Patient hx anesthesia problems: none Family hx anesthesia problems: none Results Review: All pre-operative results and documents have been reviewed as part of the pre-operative evaluation. [facility] Past Medical History Medical History COVID Dyslipidemia Dysphagia Epigastric pain Parkinson disease Unspecified osteoarthritis, unspecified site Vitamin B12 deficiency Vitamin D deficiency Surgical History Surgical History History of bunionectomy of both great toes 2009 and 2010 Family History Family History Other Family history of coronary artery disease Social History Social History Smoking status: Never smoker Second hand tobacco smoke exposure: No Alcohol intake: never Substance use: never Substance use type: does not use Lack of Transportation: No Lack of Food: Never True Current Housing: I Have Housing Concerned About Future Housing: No Difficulty Paying Gas/Electric Bills: No Difficulty Paying for Meds: No Currently Unemployed: No Education: Master's Degree or Higher Difficulty w/ Childcare or Family Care: No Living arrangements: with family Gender identity (if verbalized by the patient): Female Spiritual care concerns: No Anes - Eval Final PreProcedure Day of Procedure 06/19/22 08:28 Patient weight: normal Heart: regular rate and rhythm Lungs: clear to auscultation Airway: Mallampati scale class II Neurological: alert and oriented Last oral intake: >/= 8 hours ASA classification: III Emergent: no Anesthetic plan: proceed Anesthesia type and monitoring: general GIVS and standard monitoring Results Review: All pre-operative results and documents have been reviewed as part of the pre-operative evaluation. Informed Consent: The patient's anesthetic plan and its attendant risks and benefits were discussed with the patient/family/POA. Questions were solicited and answers provided to the satisfaction of the patient/family/POA.
[2022-06-19 09:08] VITALS: BP 104/55; PULSE 74; RESP 26; O2SAT 95
[2022-06-19 09:18] VITALS: BP 109/59; PULSE 74; RESP 12; O2SAT 97
[2022-06-19 09:28] VITALS: BP 122/63; PULSE 75; RESP 18; O2SAT 98
[2022-06-19 09:40] VITALS: BP 115/74; PULSE 77; RESP 19; O2SAT 100
--- NOTE | 2022-06-19 09:51 | SUR.PHASEII ---
Helped patient up to chair following recovery from procedure. Patient did well ambulating to chair. Asked patient whether she wanted assistance getting dressed or if she wanted to do it by herself given her history of Parkinson's and not having any family with her in the recovery room. Patient states she would like to get dressed by herself. Gave patient call light and showed her red button to push for assistance. Noise was heard from recovery room, and upon entering patient was on the floor with pants half way pulled up. Patient is alert and oriented x4. States she lost her balance while putting on her pants. Patient denies any pain at this time, but states she hit her head and left hip. Patient assisted x2 to sit in chair. Vitals stable at pulse 77, O2 100%, BP 115/74, and respirations 19. Neuro check normal. Pedal pulses normal and equal. Patient continues to deny pain and denies the need for any x-rays. Dr. Jarquin in room. Updated Dr. Payne. Called and updated patient's Endy. No questions or concerns voiced from patient or at this time.
--- NOTE | 2022-06-19 10:11 | SUR.PHASEII ---
Endy (patient ) picked patient up at door. Patient did well to ambulated to car. Patient continues to deny any pain or issues. Educated patient and Endy to go to ER for any significant pain or any changes in mental status. Both agree to this and understand.
== END 2022-06-19 10:05 | disposition home or self-care (01) ==
PROVIDERS: PCP Family Medicine; Visit Provider Internal Medicine Gastroenterology
PROC: 0DJ08ZZ Inspection of Upper Intestinal Tract, Via Natural or Artificial Opening Endoscopic (ICD-10-PCS; CPT 43235; principal; 2022-06-19 09:00)
DX: K22.2 Esophageal obstruction (principal); G20 Parkinson's disease; E78.5 Hyperlipidemia, unspecified; E55.9 Vitamin D deficiency, unspecified
CPT/HCPCS: 43249; J2704; J7120

== ENCOUNTER 2023-01-15 08:42 | Outpatient (CLI) | payer MEDICARE, SELFPAY ==
[2023-01-15 13:11] LABS: Basophils Absolute Auto 0.1 K/mm3 (0.0-0.1); Basophils Percent Auto 1.2 % (0.2-1.2); Eosinophils Absolute Auto 0.1 K/mm3 (0-0.3); Eosinophils Percent Auto 1.9 % (0-4.4); Hematocrit 46.4 % (37.0-47.0); Hemoglobin 15.2 g/dL (12.0-15.0); Immature Granulocyte Absolute 0.01 K/mm3 (0.00-0.031); Immature Granulocyte Percent A 0.1 % (0-0.5); Lymphocytes Absolute Auto 1.41 K/mm3 (0.9-3.2); Mean Corpuscular HGB Conc 32.8 g/dl (32-36); Mean Corpuscular Hemoglobin 30.4 pg (26-34); Mean Corpuscular Volume 92.8 fl (80-100); Mean Platelet Volume 11.1 fl (7.4-10.4); Monocytes Absolute Auto 0.4 K/mm3 (0.1-0.6); Monocytes Percent Auto 6.5 % (2.6-8.5); Neutrophils Absolute Auto 4.7 K/mm3 (1.3-6.7); Neutrophils Percent Auto 69.3 % (45.5-73.1); Platelet Count Result 247 k/mm3 (150-375); Red Cell Distribution Width 11.9 % (11.5-14.5); White Blood Count 6.7 K/mm3 (4.5-10.0)
[2023-01-15 13:13] LABS: Alanine Aminotransferase 7 U/L (6-35); Albumin Level 4.1 g/dL (3.5-5.1); Alkaline Phosphatase 67 U/L (38-126); Anion Gap 3 mmol/L (8-16); Aspartate Amino Transferase 27 U/L (14-36); Bilirubin,Total 0.9 mg/dL (0.2-1.3); Blood Urea Nitrogen 15 mg/dL (7-17); Calcium 8.8 mg/dL (8.4-10.2); Carbon Dioxide 35 mmol/L (22-30); Chloride 101 mmol/L (98-107); Cholesterol 141 mg/dL (0-200); Estimated Glomerular Filt Rate > 60; Glucose 79 mg/dL (65-110); HDL Direct 47 mg/dL; Potassium 4.2 mmol/L (3.4-5.0); Sodium 139 mmol/L (137-145); Triglycerides 102 mg/dL (<150)
[2023-01-15 13:24] LABS: LDL Cholesterol Direct 70 mg/dL
[2023-01-15 13:44] LABS: Vitamin D 25 Hydroxy 54.9 ng/mL
== END 2023-01-15 08:43 | disposition home or self-care (01) ==
PROVIDERS: PCP Family Medicine; Visit Provider Family Medicine
DX: M19.90 Unspecified osteoarthritis, unspecified site (principal); Z79.899 Other long term (current) drug therapy; E53.8 Deficiency of other specified B group vitamins; E55.9 Vitamin D deficiency, unspecified; E78.5 Hyperlipidemia, unspecified; Z13.29 Encounter for screening for other suspected endocrine disorder; G20.A1 Parkinson's disease without dyskinesia, without mention of fluctuations
CPT/HCPCS: 36415; 80053; 80061; 82306; 82607; 84443; 85025

== ENCOUNTER 2023-04-30 10:30 | Outpatient (RCR) | payer MEDICARE, SELFPAY ==
--- NOTE | 2023-01-31 11:37 | PTOPEVAL1 ---
Assessment and note entered by Deric Lou Evaluation Information Assessment Status Evaluation Diagnosis Parkinsons Disease Onset 10/31/22 Subjective Information Pt. reports she was diagnosed with PD in 2008. She reports that she went to the doctor due to noticing developed weakness over the past few months. Pt. reports that she had a fall a couple weeks ago in the kitchen. She reports that she got her feet tangled after trying to avoid the dog . She reports that she is still driving and doing most IADL's. She reports she has stopped driving at night due to her balance. She states that her ability to walk at night has declined over the past year. Pt. reports that she has frequent freezing episodes, espeically notable while in bed at night. She recalls 2 falls in the past year. She notes that she has developed recent pain located in the hips. She reports pain is most notable in the morning, but will decrease with activity. She states that her goal is to reduce her pain and be able to improve her movement. Reported Pain Level Pain Score 0: Self Report Assessment PT Clinical Summary Pt. is a 77 year old female who enters the clinic with a diagnosis of PD. She also presents with c/o low back pain on this date. Currently pt. presents with impaired gait, impaired l.e. strength, impaired flexibility, impaired postural awareness and pain on this date. Continued skilled PT is indicated in order to address these areas to allow for improved comfort with IADL performance. Plan of Care Interventions Gait Training,Manual Therapy,Neuro Re-education, Patient/Caregiver Educati,Therapeutic Activities, Therapeutic Exercise PT Services Indicated Yes Treatment Frequency and 2x/week x 10 visits Duration These treatments will address the objective and functional deficits as defined above. The patient will be advanced safely and appropriately in order for the patient to progress towards his/her prior level of function. Additional exercises will be introduced and as well as a comprehensive home exercise program upon discharge, if needed, ?to ensure carryover of functional gains achieved in the clinic. This treatment plan has been reviewed and agreement upon by the patient.
--- NOTE | 2023-01-31 11:37 | OPREHPOC ---
Outpatient Therapy Plan of Care This is a Multidisciplinary Plan of Care that may contain components documented by all disciplines (PT, OT, and ST.) PT Problem 1 PT Problem #1 Knowledge Deficit PT Goal 1 Goal Pt. will be independent with HEP addressing postural awareness, strength and flexibility. Target Visit 2 PT Problem 2 PT Problem #2 Impaired Balance PT Goal 1 Goal Pt. will improve her tinetti score to 22 or greater indicating improved balance and safety. Target Visit 10 PT Problem 3 PT Problem #3 Impaired Gait PT Goal 1 Goal Pt. will complete the 6 minute walk test over a distance of 900' indicating improved gait efficiency. Target Visit 10 PT Problem 4 PT Problem #4 Impaired Strength PT Goal 1 Goal Pt. will present with 4plus/5 bilateral l.e. strength in all mm. groups Target Visit 10 PT Problem 5 PT Problem #5 Impaired Flexibility PT Goal 1 Goal Pt. will present at 15 degrees from full knee extension with the 90/90 test Target Visit 10
--- NOTE | 2023-03-09 11:48 | PCPTNOTE ---
pt did not show for today's reeval. Attempted to call pt- number on chart not longer in service , so was not able to leave her a message.
--- NOTE | 2023-04-12 10:59 | PTOPEVAL1 ---
Assessment and note entered by [facility] Evaluation Information Assessment Status Progress Diagnosis Parkinson's Disease Onset 10/31/22 Subjective Information Pt. reports that she had some recent complications with her that left her unable to attend. She reports she has had a couple recent falls. She states that she is no longer having back pain. She continues to remain concerned in regards to her balance and mobility. She states that she would like to continue with therapy as she feels she can be more consistent with her rehab at this time. Reported Pain Level Pain Score 0: Self Report Assessment PT Clinical Summary The pt. has attended a total of 9 treatment sessions. While she demonstrates no improvement in l.e. strength, she continues to demonstrate gradual progress in regards to balance and functional mobility. She would benefit from continued skilled PT in order to continue to improve her Tinetti score indicating decreased fall risk and to continue to address l.e. strength and flexibility. Plan of Care Interventions Gait Training,Hot Pack/Cold Pack,Manual Therapy, Neuro Re-education,Therapeutic Activities, Therapeutic Exercise PT Services Indicated Yes Treatment Frequency and 2x/week x 8 visits Duration These treatments will address the objective and functional deficits as defined above. The patient will be advanced safely and appropriately in order for the patient to progress towards his/her prior level of function. Additional exercises will be introduced and as well as a comprehensive home exercise program upon discharge, if needed, ?to ensure carryover of functional gains achieved in the clinic. This treatment plan has been reviewed and agreement upon by the patient.
--- NOTE | 2023-05-03 13:01 | PCPTNOTE ---
Pt. account has and documentation will continue on account [id number]. Refer to new account for update pt. status.
--- NOTE | 2023-05-03 13:03 | OPREHPOC ---
Outpatient Therapy Plan of Care This is a Multidisciplinary Plan of Care that may contain components documented by all disciplines (PT, OT, and ST.) PT Problem 1 PT Problem #1 Knowledge Deficit PT Goal 1 Goal Pt. will be independent with HEP addressing postural awareness, strength and flexibility. Target Visit 2 Progress Met PT Problem 2 PT Problem #2 Impaired Balance PT Goal 1 Goal Pt. will improve her tinetti score to 22 or greater indicating improved balance and safety. Target Visit 10 Progress Not Met PT Problem 3 PT Problem #3 Impaired Gait PT Goal 1 Goal Pt. will complete the 6 minute walk test over a distance of 900' indicating improved gait efficiency. Target Visit 10 Progress Partially Met PT Problem 4 PT Problem #4 Impaired Strength PT Goal 1 Goal Pt. will present with 4plus/5 bilateral l.e. strength in all mm. groups Target Visit 10 Progress Not Met PT Problem 5 PT Problem #5 Impaired Flexibility PT Goal 1 Goal Pt. will present at 15 degrees from full knee extension with the 90/90 test Target Visit 10 Progress Partially Met
== END 2023-05-01 12:29 | disposition home or self-care (01) ==
LOC: ANHPT 10:30
PROVIDERS: PCP Family Medicine; Visit Provider Family Medicine
DX: G20.A1 Parkinson's disease without dyskinesia, without mention of fluctuations (principal)
CPT/HCPCS: 97110; 97112; 97116; 97161; 97530; 99199

== ENCOUNTER 2023-05-11 07:56 | Outpatient (CLI) | payer MEDICARE, SELFPAY ==
--- NOTE | ~2023-05-11 | DEXA_ITS ---
Bone Density Report Name: ANN FOREMAN Age: 77 Sex: Female Ethnicity: White Date of : 1945 Indication: postmenopausal; screening for osteoporosis; parental hip fracture; Referring Provider: AMBROSE AGEE Study: Bone densitometry was performed. Exam Date: May 11, 2023 Accession number: [id number] Bone Density: Region BMD T-score Z-score Classification AP Spine(L1-L4) 1.002 -0.4 2.1 Normal Femoral Neck (Left) 0.498 -3.2 -1.0 Osteoporosis Total Hip (Left) 0.695 -2.0 -0.2 Osteopenia Femoral Neck (Right) 0.525 -2.9 -0.8 Osteoporosis Total Hip (Right) 0.676 -2.2 -0.3 Osteopenia Total Hip Mean 0.685 -2.1 -0.3 Osteopenia World Health Organization criteria for BMD impression classify patients as: Normal (T-score at or above -1.0), Osteopenia (T-score between -1.0 and -2.5), or Osteoporosis (T-score at or below -2.5). 10-year Fracture Risk: FRAX not reported because: Some T-score for Spine Total or Hip Total or Femoral Neck at or below -2.5 Clinical Information Provided by Patient: Parent has had a hip fracture Has used the following medications: Vitamin D Patient maximum height was 64 Menopause Age: 52 Does not regularly consume dairy products Drinks caffeinated beverages Onset of menses at age 14 Number of children 0 Impression: The patient has osteoporosis, based on the Left Femoral Neck T-score. The patient has risk factors, including: parental hip fracture. Discussion: INCREASED RISK OF FRACTURE. BONE DENSITY IS UNDESIRABLY LOW AT ONE OR MORE SKELETAL SITES, CONSISTENT WITH POSTMENOPAUSAL OSTEOPOROSIS. This patient's lowest T-score meets the World Health Organization's (WHO) criteria for osteoporosis at one or more sites (T-score -2.5 or below). In untreated patients, the risk of osteoporotic fracture increases approximately two-fold for each 1.0 SD decrease in T-score. Low bone density is not the only risk factor for fracture; also consider factors such as patient's age, frailty or poor health, risk of falling, risk of injury, previous osteoporotic fracture, family history of osteoporosis, cigarette smoking, low body weight, etc. Not everyone with low bone mineral density has osteoporosis; osteomalacia and other metabolic bone disorders should also be considered. Patients who have osteoporosis should be evaluated for specific diseases and conditions (secondary causes) that may cause or contribute to bone loss. The [place] Association of Clinical Endocrinologists (AACE) and National Osteoporosis Foundation (NOF) recommend pharmacologic intervention for all postmenopausal women whose T-score is in this range. The patient should follow a healthful lifestyle (good nutrition with adequate calcium and vitamin D, and appropriate weight-bearing exercise). Follow-Up: Consider a repeat B
== END 2023-05-11 07:57 | disposition home or self-care (01) ==
LOC: ANHIMG 08:01
PROVIDERS: PCP Family Medicine; Visit Provider Family Medicine
DX: M81.0 Age-related osteoporosis without current pathological fracture (principal); M85.852 Other specified disorders of bone density and structure, left thigh; M85.851 Other specified disorders of bone density and structure, right thigh
CPT/HCPCS: 77080

== ENCOUNTER 2023-05-16 16:24 | Outpatient (RCR) | payer MEDICARE, SELFPAY ==
--- NOTE | 2023-05-03 10:31 | PCPTNOTE ---
Patient called to cancel secondary to is in the hospital.
--- NOTE | 2023-05-14 10:15 | PCPTNOTE ---
Pt cancelled due to family emergency.
--- NOTE | 2023-05-16 10:23 | PCPTNOTE ---
Pt. did not show for her scheduled appointment on this date. Deric Lou, MPT
--- NOTE | 2023-05-16 13:14 | PTOPPROGNS ---
Assessment and note entered by Deric Lou Discharge Information Assessment Status Discharge Diagnosis Parkinson's Disease Onset 10/31/22 Subjective Information Pt. reports that she has had complications with family at home that has made attending therapy difficult again. She reports despite her busy schedule she has noticed improvement in her balance and strength. She reports that she is walking better and feels she is striding farther with her steps. She reports that she is going to work on exercise at home and is ready for discharge at this time. Assessment PT Clinical Summary The pt. has currently met all goals established at the initial evaluation. She is currently independent with her HEP established on this date. At this time encourage the pt. to continue with her HEP and will be discharged from our care at this time. Plan of Care Interventions Therapeutic Exercise,Manual Therapy,Neuro Re- education,Therapeutic Activities,Hot Pack/Cold Pack,Gait Training PT Services Indicated Yes Treatment Frequency and D/C from PT to an independent HEP. Duration These treatments will address the objective and functional deficits as defined above. The patient will be advanced safely and appropriately in order for the patient to progress towards his/her prior level of function. Additional exercises will be introduced and as well as a comprehensive home exercise program upon discharge, if needed, ?to ensure carryover of functional gains achieved in the clinic. This treatment plan has been reviewed and agreement upon by the patient.
== END 2023-05-16 16:25 | disposition home or self-care (01) ==
LOC: ANHPT 16:24
PROVIDERS: PCP Family Medicine; Visit Provider Family Medicine
DX: G20.A1 Parkinson's disease without dyskinesia, without mention of fluctuations (principal); R29.898 Other symptoms and signs involving the musculoskeletal system
CPT/HCPCS: 97110; 97112; 97530; 97750; 99199

== ENCOUNTER 2024-01-11 12:45 | Outpatient (CLI) | payer MEDICARE, SELFPAY ==
[2024-01-11 13:49] LABS: Basophils Absolute Auto 0.1 K/mm3 (0.0-0.1); Basophils Percent Auto 0.9 % (0.2-1.2); Eosinophils Absolute Auto 0.1 K/mm3 (0-0.3); Eosinophils Percent Auto 1.5 % (0-4.4); Hematocrit 45.9 % (37.0-47.0); Hemoglobin 14.7 g/dL (12.0-15.0); Immature Granulocyte Absolute 0.02 K/mm3 (0.00-0.031); Immature Granulocyte Percent A 0.3 % (0-0.5); Lymphocytes Absolute Auto 1.46 K/mm3 (0.9-3.2); Lymphocytes Percent Auto 18.7 % (18.3-44.2); Mean Corpuscular Hemoglobin 29.6 pg (26-34); Mean Corpuscular Volume 92.4 fl (80-100); Mean Platelet Volume 10.1 fl (7.4-10.4); Monocytes Absolute Auto 0.6 K/mm3 (0.1-0.6); Monocytes Percent Auto 7.7 % (2.6-8.5); Neutrophils Absolute Auto 5.6 K/mm3 (1.3-6.7); Neutrophils Percent Auto 70.9 % (45.5-73.1); Platelet Count Result 231 k/mm3 (150-375); Red Blood Count 4.97 M/mm3 (4.2-5.4); White Blood Count 7.8 K/mm3 (4.5-10.0)
[2024-01-11 14:25] LABS: Albumin Level 4.1 g/dL (3.5-5.1); Alkaline Phosphatase 66 U/L (38-126); Anion Gap 7 mmol/L (4-12); Aspartate Amino Transferase 37 U/L (14-36); Bilirubin,Total 0.8 mg/dL (0.2-1.3); Blood Urea Nitrogen 16 mg/dL (7-17); Calcium 8.6 mg/dL (8.4-10.2); Carbon Dioxide 33 mmol/L (22-30); Chloride 101 mmol/L (98-107); Cholesterol 126 mg/dL (0-200); Estimated Glomerular Filt Rate > 60; Glucose 91 mg/dL (65-110); HDL Direct 45 mg/dL; Potassium 4.4 mmol/L (3.4-5.0); Sodium 141 mmol/L (137-145); Triglycerides 102 mg/dL (<150)
[2024-01-11 14:36] LABS: LDL Cholesterol Direct 52 mg/dL
[2024-01-11 15:11] LABS: Alanine Aminotransferase < 6 U/L (6-35)
[2024-01-11 15:13] LABS: Vitamin B12 > 1000.0 pg/mL (239-931)
== END 2024-01-11 12:46 | disposition home or self-care (01) ==
LOC: ANHGOSHLAB 12:46
PROVIDERS: PCP Family Medicine; Visit Provider Nurse Practitioner Family
DX: E78.5 Hyperlipidemia, unspecified (principal); E53.8 Deficiency of other specified B group vitamins
CPT/HCPCS: 36415; 80053; 80061; 82607; 85025

== ENCOUNTER 2024-06-19 09:09 | Outpatient (CLI) | payer MEDICARE, SELFPAY ==
--- NOTE | ~2024-06-19 | MM_ITS ---
CORRECTED REPORT examination description corrected [facility] 06/24/24 This report was recreated on 06/24/24. Original report was INATION: MM screening mammo BI w MICHELLE HISTORY: Screening mammogram TECHNIQUE: Craniocaudal and mediolateral oblique 3-D tomosynthesis images were obtained and synthetic 2-D images were generated. CAD analysis was submitted and interpreted. COMPARISON: 02/10/2021 BREAST PARENCHYMAL COMPOSITION:Dense: The breasts are heterogeneously dense, which may obscure small masses. FINDINGS: No suspicious mass, calcification, or architectural distortion are identified in either breast to suggest malignancy. There has been no suspicious interval change. IMPRESSION: No mammographic evidence of malignancy. Recommend routine screening mammography in one year. BI-RADS Category 1: Negative Reviewed, dictated and finalized at location . TIVE INTERN MTDD
--- OUTSIDE RECORDS SUMMARY | 2024-06-19 09:54 | XMS_ITS | CONTINUITY OF CARE DOCUMENT ---
Author Name chanel buchanan Address Unknown Organization [facility] Address [address] [place] [address] [address] [place] [address] Phone [phone] Care Team Providers Care Research Dietitian Name Role Phone chanel buchanan Unavailable Unavailable INSURANCE PROVIDERS Payer name Policy type / Coverage type [place] red democrat ID [employer] OPEN ACCESS Other [id number]
--- OUTSIDE RECORDS SUMMARY | 2024-06-19 09:54 | XMS_ITS | Continuity of Care Document ---
Author Organization [facility] [place] [address] [place] [address] Phone Care Team Providers Care Machine Operator Name Role Phone Boone OD, Amador Unavailable Unavailable Procedures Procedure Date Contact Lens Hydrophilic, Spherical Medical Tax Eye Exam & Treatment Refraction CL Replacement - Vistak[employer] Disp W/BW Soft XTRM No Charge Contact Lens Check No Charge Contact Lens Check Eye Exam & Treatment Refraction CL Replacement - Vistakon Disp W/BW Soft XTRM Eye Exam & Treatment Refraction CL Replacement - Vistak[employer] Disp W/BW Soft XTRM Eye Exam & Treatment Refraction CL Replacement - Vistak[employer] Disp W/BW Soft Sales Tax Advance Directives Directive Yes / No Effective Date File Name No Information Encounters Encounter Description Practice Location Reason(s) For Visit Diagnoses Date Provider Providers Copied on Encounter [facility], [address], [place], [place], [id number], [place] tel:[phone] [facility] No Information 7-201 0 Boone OD Amador. [address] , [address], [place], [address], [place]. tel:[phone] [facility], [address], [place], [place], [address], [place] tel:[phone] [facility] No Information Ken-2 1-201 0 Boone OD Amador. [address] , [address], [place], [place], [facility], [place]. tel:[phone] [facility], [address] [place] [address] [address], [place], [place], [address], [place] tel:[phone] [facility] No Information Ken-3 0-200 9 Boone OD Amador. [address] , [address], [place], [place], [facility], [place]. tel:[phone] [facility], [address] [place] [address] [address], [place], [place], [address], [place] tel:[phone] [facility] No Information Ken-2 1-200 9 Boone OD Amador. [address] , [address], [place], [place], [facility], [place]. tel:[phone] [facility], [address], [place], [place], [address], [place] tel:[phone] [facility] No Information Oct-1 4-200 9 Boone OD Amador. [address] , [address], [place], [place], [facility], [place]. tel:[phone] [facility], [address] [place] [address] [address], [place], [place], [address], [place] tel:[phone] [facility] No Information Ken-0 7-200 9 Boone OD Amador. [address] , [address], [place], [place], [facility], [place]. tel:[phone] [facility], [address], [place], [place], [address], tel:[phone] [facility] No Information 8-200 8 Boone OD Amador. [address] [place], [place] [address], [place], [place], [facility], . tel:[phone] [facility], [address] [place] [address] [address], [place], [place], [id number], tel:[phone] [facility] [place] No Information 0 2-200 8 Boone OD Amador. [address] [place], [place] [address] , [address], [place], [place], [facility], [place]. tel:[phone] [facility], [address] [place] [address] [address], [place], [place], [address], tel:[phone] [facility] [place] No Information 2 7-200 7 Boone OD Amador. [address] [place], [place] [address], [place], [place], [facility], [place]. tel:[phone] [facility], [address] [place] [address] [address], [place], [place], [address], tel:[phone] [facility] [place] No Information 8-200 7 Boone OD Amador. [address] [place], [place] [address], [place], [place], [facility], . tel:[phone] [facility], [address] [place] [address] [address], [place], [place], [address], tel:[phone] [facility] [place] No Information 5-200 7 Boone OD Amador. [address] [place], [place] [address] , [address], [place], [place], [facility], . tel:[phone] Family History Family Member Type Diagnosis Age At Onset No Information Payers Payer name Insurance type Covered democrat ID Authoriza tion(s) No Information Social History Type Description Quantity Date Captured Comments Sex Female Smoking Status No Information Chief Complaint And Reason For Visit No Information Reason For Referral Reason For Referral No Information History Of Present Illness Encounter Date Complaint History Of Prese nt Illness No Information Functional Status Date Functional Assessmen t No Information Instructions Date Instruction Additional Infor mation No Information Assessments Type Assessment Date No Information Patient Care Teams Name Effective Dates (start - stop) Status Members No Information
--- OUTSIDE RECORDS SUMMARY | 2024-06-19 09:54 | XMS_ITS | Clinical Summary ---
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 Gender Identity Not on file Sexual Orientation Not on file Occupation Industry Job Start Date Job End Date Not on file Not on file Not on file Not on file Plan of Treatment Health Maintenance Due Date Last Done Comments DTAP/TDAP/TD VACCINES (1 - Tdap) 1965 PNEUMOCOCCAL VACCINE 50+ YEARS (1 of 1 - PCV) 10/02/18 97 ZOSTER VACCINE (1 of 2) 1996 OSTEOPOROSIS SCREENING 10/03/2011 RSV VACCINE (60+ or ) (1 - 1-dose 75+ series) 2021 INFLUENZA VACCINE (#1) 2023 Insurance MEDICARE PART A AND B [email or web address] OPEN ACCESS Care Teams Reel Cart Operator Relationship Specialty Start Date End Date Sotero Ross MD [address] [place] [address] PCP - General Family Practice 09/27/10
--- OUTSIDE RECORDS SUMMARY | 2024-06-19 09:55 | XMS_ITS | Encounter Summary ---
Author Organization [facility] Address 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 Gender Identity Not on file Sexual Orientation Not on file documented as of this encounter Plan of Treatment Not on file documented as of this encounter Procedures Procedure Name Priority Date/Time Associated Diagnosis Comments MAMMO SCREEN BILAT W OR WO CAD Routine 08/11/2008 11:02 AM CDT documented in this encounter Results * MAMMO DIGITAL SCREEN BILAT (08/11/2008 11:02 AM CDT) Anatomical Region Laterality Modality Breast Bilateral Other 08/11/2008 11:0 2 AM CDT Narrative 08/11/2008 4:47 PM CDT [address] [place], [place] [address] Admit Date: 08/11/2008 AMI RIVERA Sex: F Admit Prov: MEAGAN JACOBS Date: 1945 Primary Care Prov: SOTERO BARAJAS CMRN: [id number] Room: ARIEL SSN: [id number] IMAGING SERVICES Ordering Prov: MEAGAN JACOBS Accession Number: [id number] Interpretation BILATERAL SCREENING DIGITAL MAMMOGRAMS WITH COMPUTER ASSISTED DIAGNOSIS 08/11/2008 History: Annual screening study. Comparison is made to 02/22/04. The images were reviewed using the CAD system. The breast parenchyma is heterogeneously dense. No new dominant masses, suspicious calcifications or areas of parenchymal asymmetry or distortion are identified. Impression: Stable screening mammogram Recommend routine followup Overall assessment: BIRADS category 1 - Negative Assessment BIRADS: 1-Negative Recommendation: Normal interval follow-up Dictated by: MADHAVI ELI Electronically signed by: MADHAVI ELI 08/11/2008 16:45 Transcribed: 08/11/2008 16:10 AMK Procedure Note Madhavi Eli - 08/11/[address] [address] Admit Date: 08/11/2008 AMI RIVERA Sex: F Admit Prov: REYNALDOODILIADENNYS Vick Date: 1945 Primary Care Prov: SOTERO BARAJAS Esau CMRN: [id number] Room: ARIEL SSN: [id number] IMAGING SERVICES Ordering Prov: MEAGAN JACOBS Nicanor Interpretation BILATERAL SCREENING DIGITAL MAMMOGRAMS WITH COMPUTER ASSISTEDDIAGNOSIS 08/11/2008 History: Annual screening study. Comparison is made to 02/22/04. The images were reviewed using theCAD system. The breast parenchyma is heterogeneously dense. No newdominant masses, suspicious calcifications or areas of parenchymal asymmetryor distortion are identified. Impression: Stable screening mammogram Recommend routine followup Overall assessment: BIRADS category 1 - Negative Assessment BIRADS: 1-Negative Recommendation: Normal interval follow-up Dictated by: MADHAVI ELI Electronically signed by: MADHAVI ELI 08/11/2008 16:45 Transcribed: 08/11/2008 16:10 AMK us Meagan Jacobs Jr., MD MAMMO ORDERABLES Final Res ult documented in this encounter Visit Diagnoses Diagnosis Other screening mammogram documented in this encounter Care Teams Rotary Drum Tanner Relationship Specialty Start Date End Date Sotero Barajas MD [address] [place] [id number] PCP - General Family Practice 09/27/10 documented as of this encounter
--- OUTSIDE RECORDS SUMMARY | 2024-06-19 09:55 | XMS_ITS | Encounter Summary ---
Author Organization [facility] Address [facility] [facility] [place] [address] Care Team Providers Care Organic Search Lead Name Role Phone Erich Mclain MD Primary Care Provider Reason for Visit * Reason Onset Date Comments MEDICATION REFILL 04/06/2023 Encounter Details Date Type Department Care Team (Late st Contact Info) Description 04/06/2023 Refill [facility] - Neurology [address] [place] [phone] Lawrence Paredes MD [address] [place] [address] [address] [place] [phone] MEDICATION REFILL Social History Tobacco Use Types Packs/Day Years Used Date Smoking Tobacco: Never Smokeless Tobacco: Never Sex and Gender Information Value Date Recorded Sex Assigned at Not on file Gender Identity Not on file Sexual Orientation Not on file documented as of this encounter Plan of Treatment Upcoming Encounters Date Type Department Care Team (Late st Contact Info) Description 08/18/2024 10:00 AM CDT Office Visit [facility] - Neurology [address] [place] [phone] Mart Khanna APRN-CNP [address] [place] [address] [address] [place] [phone] documented as of this encounter Visit Diagnoses Not on filedocumented in this encounter Care Teams Organic Search Lead Relationship Specialty Start Date End Date Erich Mclain MD [address] [place] [address] PCP - General 04/28/22 documented as of this encounter
--- OUTSIDE RECORDS SUMMARY | 2024-06-19 09:55 | XMS_ITS | Encounter Summary ---
Author Organization [facility] Address 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
--- OUTSIDE RECORDS SUMMARY | 2024-06-19 09:55 | XMS_ITS | Referral Summary ---
Author Organization [facility] Address [address] [place] [address] Care Team Providers Care National Van Truck Driver Name Role Phone Erich Mclain MD Primary Care Provider Source Comments [facility],non-owned Affiliates and Associated Physician Practices is amultwhite hospitale site organization consisting of ambulatory clinics and hospital sitesin [place], [place], [place] and [place]. This disclosure is being madepursuant to the Care Everywhere program and may not contain all information available regarding this patient. Last updated 18.[facility] Allergies No known active allergies Medications * Be aware that medications may not be up to date on this document. Alwaysverify current medications with the patient. Medication Sig Dispensed Refills Start Date End Date Status simvastatin (Zocor) 20 MG tablet Take 1 (one) tablet by mouth 04/13/2022 Active rasagiline (Azilect) 1 MG tablet Take 1 (one) tablet by mouth 04/13/2022 Active meloxicam (Mobic) 15 MG tablet Take 1 (one) tablet by mouth as needed Active ammonium lactate (Lac-Hydrin) 12 % lotion APPLY 3 APPLICATIONS TOPICALLY TO THE AFFECTED AREA EVERY DAY NEEDED 05/09/2022 Active Tdap, tetanus-diphtheri a-acell pertussis, (Boostrix) 5-2.5-18.5 LF-MCG/0.5 (7y+) injection Boostrix Tdap 2.5 Lf unit-8 mcg-5 Lf/0.5 mL intramuscular syringe Active pantoprazole EC (Protonix) 40 MG tablet Take 1 (one) tablet by mouth every morning 06/19/2022 Active polyethylene glycol 3350 (Miralax) 17 g packet Take 17 (seventeen) g by mouth once daily as needed for Constipation 14 packet 07/23/2022 Active cyanocobalamin (Vitamin B-12) injection 02/07/2023 Active carbidopa-levodop a CR (Sinemet CR) 25-100 MG tabletIndications :Parkinson's Disease Take 1 (one) tablet by mouth once daily Reasons: Parkinson's Disease 90 tablet 5 11/12/2023 Active escitalopram (Lexapro) 5 MG tablet Take 1 (one) tablet by mouth once daily 12/31/2023 Active carbidopa-levodop a (Sinemet) 25-100 MG tabletIndications :Parkinson's Disease Take 1.5 (one and one-half) tablets by mouth 4 times daily Reasons: Parkinson's Disease 600 tablet 5 02/18/2024 Active Active Problems Problem Noted Date Diagnosed Date Pain in left foot 05/20/2023 08/15/2023 S/P deep brain stimulator placement 08/10/2022 Porokeratosis 05/09/2022 Arthritis 01/31/2017 Hypercholesterolemia 01/31/2017 Parkinson's disease 01/31/2017 Social History Tobacco Use Types Packs/Day Years Used Date Smoking Tobacco: Never Smokeless Tobacco: Never Tobacco Cessation:Counseling Given: Not Answered Sex and Gender Information Value Date Recorded Sex Assigned at Not on file Gender Identity Not on file Sexual Orientation Not on file Last Filed Vital Signs Vital Sign Reading Time Taken Comments Blood Pressure 130/74 02/18/2024 1:33 PM RAG WILLOW OPERATOR Pulse 88 02/18/2024 1:33 PM RAG WILLOW OPERATOR Temperature 36.1 C (97 F) 02/18/2024 1:33 PM RAG WILLOW OPERATOR Respiratory Rate 16 07/23/2022 11:40 AM CDT Oxygen Saturation 96% 02/18/2024 1:33 PM RAG WILLOW OPERATOR Inhaled Oxygen Concentration - - Weight 58.1 kg (128 lb) 02/18/2024 1:33 PM RAG WILLOW OPERATOR Height 162.6 cm (5' 4 ) 02/18/2024 1:33 PM RAG WILLOW OPERATOR Body Mass Index 21.97 02/18/2024 1:33 PM RAG WILLOW OPERATOR Plan of Treatment Upcoming Encounters Date Type Department Care Team (Late st Contact Info) Description 08/18/2024 10:00 AM CDT Office Visit [facility] - Neurology [address] [place] [phone] Mart Khanna APRN-PIPE AND TANK FABRICATOR [address] [place] [phone] Medical Devices Implanted Type Area Homicide Detective Device Identifier Shelf Expiration Date Model / Serial / Lot Right Implant Vercise Cartesia 45 Cm 8 Contact Dbs Directional Lead Kit Implanted:Qty: 1 on 07/21/2022 by Sai Bradford MD at [facility] Right: Brain DB-2202-45 / [id number] / Left Implant Vercise 45cm 8 Contact Dbs Directional Lead Kit Implanted:Qty: 1 on 07/21/2022 by Sai Bradford MD at [facility] Left: Brain 05/23/2024 DB-2202-45 / [id number] / Right Implant Vercise Genus R16 Implantable Pulse Generator Kit Implanted:Qty: 1 on 07/21/2022 by Romel Perez MD at [facility] Right: Chest 06/13/2024 DB-1216 / [id number] / [id number] 55cm, 2x8 Contact Implanted:Qty: 1 on 07/21/2022 by Romel Perez MD at [facility] Right: Chest 02/02/2024 DB-3128-55 B / [id number] / Kit Nrstm Dbs Bur Hl Plg Strl Implanted:Qty: 1 on 07/21/2022 by Romel Perez MD at [facility] Left: Brain [employer] Scimed [id number] / / [id number] Kit Nrstm Dbs Bur Hl Plg Strl Implanted:Qty: 1 on 07/21/2022 by Romel Perez MD at [facility] Right: Brain [employer] Scimed [id number] / / Explanted Type Area Homicide Detective Device Identifier Shelf Expiration Date Model / Serial / Lot Nrstm Impl Bst Sci Or Cbl Pshbtn 8 Cntct Explanted:Qty: 1 on 07/21/2022 at [facility] Left: Brain [employer] Neuro [id number] / / Advance Directives Documents on File Type Date Recorded Patient Senior Enterprise Architect Expl anation Adv Directive/Living Will/POA 07/24/2022 11:33 AM * Full Code (Latest Code Status on File) Date Activated Date Inactivated Comments 07/21/2022 3:58 PM 07/23/2022 4:47 PM Care Teams National Van Truck Driver Relationship Specialty Start Date End Date Erich Mclain MD [address] [place] [address] PCP - General 04/28/22
--- OUTSIDE RECORDS SUMMARY | 2024-06-19 09:55 | XMS_ITS | Encounter Summary ---
Author Organization [facility] Address [address] [place] [address] Care Team Providers Care Child Development Teacher Name Role Phone Sotero Ross MD Primary Care Provider [phone] Encounter Details Date Type Department Care Team (Latest Contact Info) Description 02/22/2004 Outpatient Historical HIS [facility] ADELAIDA Cho Jr., Meagan Vick MD NO ADDRESS ON FILE SCREENING MAMM-MAILG NEOPL-OTHER (Primary Dx) Social History Tobacco Use Types Packs/Day Years Used Date Smoking Tobacco: Never Assessed Comments Unknown Sex and Gender Information Value Date Recorded Sex Assigned at Not on file Legal Sex Female 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
--- OUTSIDE RECORDS SUMMARY | 2024-06-19 09:55 | XMS_ITS | Patient Health Summary ---
Author Organization [facility] Address [address] [place] [address] Care Team Providers Care Sidehand Name Role Phone Erich Mclain MD Primary Care Provider Note from [facility],non-owned Affiliates and Associated Physician Practices is amultiple site organization consisting of ambulatory clinics and hospital sitesin [place], [place], [place] and [place]. This disclosure is being madepursuant to the Care Everywhere program and may not contain all information available regarding this patient. Last updated 18.[facility] Allergies No known active allergies Medications * Be aware that medications may not be up to date on this document. Alwaysverify current medications with the patient. * simvastatin (Zocor) 20 MG tablet(Started 04/13/2022) Take 1 (one) tablet by mouth * rasagiline (Azilect) 1 MG tablet(Started 04/13/2022) Take 1 (one) tablet by mouth * meloxicam (Mobic) 15 MG tablet Take 1 (one) tablet by mouth as needed * ammonium lactate (Lac-Hydrin) 12 % lotion(Started 05/09/2022) APPLY 3 APPLICATIONS TOPICALLY TO THE AFFECTED AREA EVERY DAY NEEDED * Tdap, xggrbwb-gzfvtbajlv-rxrvz pertussis, (Boostrix) 5-2.5-18.5 LF-MCG/0.5 (7y+) injection Boostrix Tdap 2.5 Lf unit-8 mcg-5 Lf/0.5 mL intramuscular syringe * pantoprazole EC (Protonix) 40 MG tablet(Started 06/19/2022) Take 1 (one) tablet by mouth every morning * polyethylene glycol 3350 (Miralax) 17 g packet(Started 07/23/2022) Take 17 (seventeen) g by mouth once daily as needed for Constipation * cyanocobalamin (Vitamin B-12) injection(Started 02/07/2023) * carbidopa-levodopa CR (Sinemet CR) 25-100 MG tablet(Started 11/12/2023) Take 1 (one) tablet by mouth once daily Reasons: Parkinson's Disease 5 refills by 11/11/2024 * escitalopram (Lexapro) 5 MG tablet(Started 12/31/2023) Take 1 (one) tablet by mouth once daily * carbidopa-levodopa (Sinemet) 25-100 MG tablet(Started 02/18/2024) Take 1.5 (one and one-half) tablets by mouth 4 times daily Reasons: Parkinson's Disease 5 refills by 02/17/2025 Active Problems Problem Noted Date Diagnosed Date [...] Comments Blood Pressure 130/74 02/18/2024 1:33 PM MANAGER OF CASE Pulse 88 02/18/2024 1:33 PM MANAGER OF CASE Temperature 36.1 C (97 F) 02/18/2024 1:33 PM MANAGER OF CASE Respiratory Rate 16 07/23/2022 11:40 AM CDT Oxygen Saturation 96% 02/18/2024 1:33 PM MANAGER OF CASE Inhaled Oxygen Concentration - - Weight 58.1 kg (128 lb) 02/18/2024 1:33 PM MANAGER OF CASE Height 162.6 cm (5' 4 ) 02/18/2024 1:33 PM MANAGER OF CASE Body Mass Index 21.97 02/18/2024 1:33 PM MANAGER OF CASE Medical Devices Implanted Type Area Legal Document Specialist Device Identifier Shelf Expiration Date Model / Serial / Lot Right Implant Vercise Cartesia 45 Cm 8 Contact Dbs Directional Lead Kit Implanted:Qty: 1 on 07/21/2022 by Sai Bradford MD at [facility] Right: Brain DB-2202-45 / [id number] / Left Implant Vercise 45cm 8 Contact Dbs Directional Lead Kit Implanted:Qty: 1 on 07/21/2022 by Sai Bradford MD at [facility] Left: Brain 05/23/2024 DB-2202-45 / [id number] / Right Implant Vercise Genus R16 Implantable Pulse Generator Kit Implanted:Qty: 1 on 07/21/2022 by Romel Perez MD at [facility] Right: Chest 06/13/2024 DB-1216 / [id number] / [id number] 55cm, 2x8 Contact Implanted:Qty: 1 on 07/21/2022 by Romel Perez MD at [facility] Right: Chest 02/02/2024 DB-3128-55 B / [id number] / Kit Nrstm Dbs Bur Hl Plg Strl Implanted:Qty: 1 on 07/21/2022 by Romel Perez MD at [facility] Left: Brain [employer] [id number] / / [id number] Kit Nrstm Dbs Bur Hl Plg Strl Implanted:Qty: 1 on 07/21/2022 by Romel Perez MD at [facility] Right: Brain [employer] [id number] / / Explanted Type Area Legal Document Specialist Device Identifier Shelf Expiration Date Model / Serial / Lot Nrstm Impl Bst Sci Or Cbl Pshbtn 8 Cntct Explanted:Qty: 1 on 07/21/2022 at [facility] Left: Brain [place] [employer] [id number] / / Procedures * PROC DEEP BRAIN STIMULATOR(Performed 02/19/2024) Performed for Parkinson's disease with dyskinesia and fluctuating manifestations (HCC) * IA ANALYS BRN NPGT PRGRMG ADDL 15(Performed 08/16/2023) Performed for Parkinson's disease with dyskinesia and fluctuating manifestations * IA ANALYS BRN NPGT PRGRMG 15 MIN(Performed 08/16/2023) Performed for Parkinson's disease with dyskinesia and fluctuating manifestations * IA ANALYS BRN NPGT PRGRMG ADDL 15(Performed 05/18/2023) Performed for Parkinson's disease with dyskinesia and fluctuating manifestations * IA ANALYS BRN NPGT PRGRMG 15 MIN(Performed 05/18/2023) Performed for Parkinson's disease with dyskinesia and fluctuating manifestations * IA ANALYS BRN NPGT PRGRMG ADDL 15(Performed 02/15/2023) Performed for Parkinson's disease with dyskinesia and fluctuating manifestations * IA ANALYS BRN NPGT PRGRMG 15 MIN(Performed 02/15/2023) Performed for Parkinson's disease with dyskinesia and fluctuating manifestations * IA ANALYS BRN NPGT PRGRMG 15 MIN(Performed 11/02/2022) Performed for Parkinson disease (CMS/HCC) * IA ANALYS BRN NPGT PRGRMG ADDL 15(Performed 09/24/2022) Performed for Parkinson disease ([facility]/HCC) * IA ANALYS BRN NPGT PRGRMG 15 MIN(Performed 09/24/2022) Performed for Parkinson disease ([facility]/HCC) * IA ANALYS BRN NPGT PRGRMG ADDL 15(Performed 08/29/2022) Performed for Parkinson disease ([facility]/HCC), Motor fluctuations related to medication use in Parkinson's disease ([facility]/HCC), Primary freezing of gait * IA ANALYS BRN NPGT PRGRMG ADDL 15(Performed 08/29/2022) Performed for Parkinson disease ([facility]), Motor fluctuations related to medication use in Parkinson's disease ([facility]/HCC), Primary freezing of gait * IA ANALYS BRN NPGT PRGRMG ADDL 15(Performed 08/29/2022) Performed for Parkinson disease ([facility]), Motor fluctuations related to medication use in Parkinson's disease ([facility]/HCC), Primary freezing of gait * IA ANALYS BRN NPGT PRGRMG 15 MIN(Performed 08/29/2022) Performed for Parkinson disease ([facility]), Motor fluctuations related to medication use in Parkinson's disease ([facility]/HCC), Primary freezing of gait * CARDIAC EKG ORDER(Performed 07/24/2022) * CBC W AUTO DIFFERENTIAL(Performed 07/23/2022) * BASIC METABOLIC PANEL (CALCIUM TOTAL)(Performed 07/23/2022) * CT HEAD WO CONTRAST(Performed 07/22/2022) Performed for Parkinson's disease (CMS/HCC) * CBC W AUTO DIFFERENTIAL(Performed 07/22/2022) * BASIC METABOLIC PANEL (CALCIUM TOTAL)(Performed 07/22/2022) * XR CHEST 1VW PORTABLE(Performed 07/22/2022) Performed for Parkinson's disease (CMS/HCC) * XR SKULL 3VW OR LESS(Performed 07/21/2022) Performed for Parkinson's disease (CMS/HCC) * FL OARM SURGERY(Performed 07/21/2022) Performed for Parkinson's disease (CMS/HCC) * ENDOTRACHEAL TUBE NOTE(Performed 07/21/2022) * INSERTION CRANIAL NEUROSTIMULATOR LEAD/ELECTRODES(Performed 07/21/2022) Performed for Parkinson disease (CMS/HCC) * BLOOD TYPE VERIFICATION(Performed 07/21/2022) * TYPE + SCREEN PANEL(Performed 07/21/2022) Performed for Pre-op testing * PTT [facility](Performed 07/07/2022) Performed for Pre-op testing * PT-INR [facility](Performed 07/07/2022) Performed for Pre-op testing * CBC W AUTO DIFFERENTIAL(Performed 07/07/2022) Performed for Pre-op testing * BASIC METABOLIC PANEL (CALCIUM TOTAL)(Performed 07/07/2022) Performed for Pre-op testing * URINALYSIS W/MICROSCOPIC REFLEX TO CULTURE(Performed 07/07/2022) Performed for Pre-op testing * XR CHEST 2VW(Performed 07/07/2022) Performed for Pre-op testing * EKG 12-LEAD(Performed 07/07/2022) Performed for Pre-op testing * MRI BRAIN WWO CONTRAST(Performed 06/20/2022) Performed for Parkinson disease (CMS/HCC), Preoperative examination * CREATININE - POCT INTERFACED(Performed 06/20/2022) * CT HEAD WO CONTRAST(Performed 06/20/2022) Performed for Parkinson disease (CMS/HCC), Preoperative examination Results * PROC DEEP BRAIN STIMULATOR (02/19/2024 2:41 PM MANAGER OF CASE) Narrative Lawrence Paredes MD - 02/19/2024 2:41 PM MANAGER OF CASE Lawrence Paredes MD 02/19/2024 2:41 PM Please see procedure notes Lawrence Hinojosa MD PROCEDURE/JO R SURGICAL ORDERABLES * IA ANALYS BRN NPGT PRGRMG 15 MIN, IA ANALYS BRN NPGT PRGRMG ADDL 15 (08/16/2023 12:00 PM CDT) Lawrence Garcia MD - 08/16/2023 12:00 PM CDT Lawrence Paredes MD 08/16/2023 12:01 PM Please see procedure notes Lawrence Hinojosa MD PROCEDURE/JO R SURGICAL ORDERABLES * IA ANALYS BRN NPGT PRGRMG 15 MIN, IA ANALYS BRN NPGT PRGRMG ADDL 15 (05/18/2023 6:43 AM MANAGER OF CASE) Narrative Lawrence Paredes MD - 05/18/2023 6:43 AM MANAGER OF CASE Lawrence Paredes MD 05/18/2023 6:44 AM Please see procedure notes Lawrence Hinojosa MD PROCEDURE/JO R SURGICAL ORDERABLES * IA ANALYS BRN NPGT PRGRMG 15 MIN, IA ANALYS BRN NPGT PRGRMG ADDL 15 (02/15/2023 3:09 PM CDT) Narrative Lawrence Paredes MD - 02/15/2023 3:09 PM CDT Lawrence Paredes MD 02/15/2023 3:09 PM Please see procedure notes Lawrence Hinojosa MD PROCEDURE/JO R SURGICAL ORDERABLES * IA ANALYS BRN NPGT PRGRMG 15 MIN (11/02/2022 6:22 AM CDT) Narrative Lawrence Paredes MD - 11/02/2022 6:22 AM CDT Lawrence Paredes MD 11/02/2022 6:23 AM Please see procedure notes Lawrence Hinojosa MD PROCEDURE/OJ R SURGICAL ORDERABLES * IA ANALYS BRN NPGT PRGRMG 15 MIN, IA ANALYS BRN NPGT PRGRMG ADDL 15 (09/24/2022 11:46 PM CDT) Lawrence Garcia MD - 09/24/2022 11:46 PM CDT Lawrence Paredes MD 09/24/2022 11:46 PM Please see procedure notes Lawrence Hinojosa MD PROCEDURE/JO R SURGICAL ORDERABLES * IA ANALYS BRN NPGT PRGRMG 15 MIN, IA ANALYS BRN NPGT PRGRMG ADDL 15, IA ANALYS BRN NPGT PRGRMG ADDL15, IA ANALYS BRN NPGT PRGRMG ADDL 15 (08/29/2022 9:49 AM CDT) Narrative Lawrence Paredes MD - 08/29/2022 9:49 AM CDT Lawrence Paredes MD 08/29/2022 9:50 AM Please see procedure notes Lawrence Hinojosa MD PROCEDURE/JO R SURGICAL ORDERABLES * CARDIAC EKG ORDER (07/24/2022 4:56 PM CDT) Narrative 07/24/2022 4:56 PM CDT Ordered by an unspecified provider. Scanned Document CARDIAC SERVICES ORD ERABLES * (ABNORMAL) CBC W AUTO DIFFERENTIAL (07/23/2022 12:46 AM CDT) Only the most recent of3 resultswithin the time period is included. WBC 12.8(H) 3.5 - 10.5 10 3/uL 07/23/2022 2:[address] [facility] RBC 4.46 3.80 - 5.20 10 6/uL 07/23/2022 2:[address] [facility] Hemoglobin 13.3 12.0 - 15.6 g/dL 07/23/2022 2:[address] [facility] Hematocrit 39.9 35.0 - 45.0 % 07/23/2022 2:[address] [facility] MCV 89.5 80.7 - 98.3 fL 07/23/2022 2:[address] [facility] MCH 29.8 26.7 - 34.0 pg 07/23/2022 2:[address] [facility] MCHC 33.3 30.8 - 35.9 g/dL 07/23/2022 2:[address] [facility] RDW-SD 40.1 36.0 - 50.0 fL 07/23/2022 2:[address] [facility] RDW-CV 12.2 11.2 - 14.8 % 07/23/2022 2:[address] [facility] Platelet Count 179 150 - 400 10 3/uL 07/23/2022 2:[address] [facility] MPV 10.7 9.4 - 12.9 fL 07/23/2022 2:[address] [facility] nRBC Absolute 0.00 0 10 3/uL 07/23/2022 2:[address] [facility] nRBC Auto 0.0 0 /100 WBC 07/23/2022 2:[address] [facility] Neutrophils % 82.3(H) 35.0 - 70.0 % 07/23/2022 2:[address] [facility] Lymphocytes % 8.3(L) 20.0 - 43.0 % 07/23/2022 2:[address] [facility] Monocytes % 8.5 5.0 - 13.0 % 07/23/2022 2:[address] [facility] Eosinophils % 0.2 0.0 - 6.0 % 07/23/2022 2:[address] [facility] Basophil % 0.2 0.0 - 2.0 % 07/23/2022 2:[address] [facility] Neutrophils Absolute 10.54(H) 1.60 - 7.00 10 3/uL 07/23/2022 2:[address] [facility] Lymphocyte Absolute 1.06(L) 1.10 - 3.90 10 3/uL 07/23/2022 2:[address] [facility] Monocytes Absolute 1.08(H) 0.26 - 1.07 10 3/uL 07/23/2022 2:[address] [facility] Eosinophils Absolute 0.02 0.00 - 0.47 10 3/uL 07/23/2022 2:[address] [facility] Basophils Absolute 0.02 0.00 - 0.08 10 3/uL 07/23/2022 2:[address] [facility] Immature Granulocytes % 0.5 0.0 - 1.0 % 07/23/2022 2:[address] [facility] Immature Granulocytes Absolute 0.06 07/23/2022 2:[address] [facility] Blood BLOOD SPECIMEN / Unknown Lab Venipuncture / Unknown 07/23/2022 12:46 AM CDT 07/23/2022 1:55 AM CDT Romel Perez MD LAB - HEMATOLOGY OR DERABLES Performing Organization Address [facility]/ZIP Co de Phone Number [facility] [address] [place] [address], [facility] [phone] * (ABNORMAL) BASIC METABOLIC PANEL (CALCIUM TOTAL) (07/23/2022 12:46 AM CDT) Only the most recent of3 resultswithin the time period is included. BUN 11 7 - 26 mg/dL 07/23/2022 2:[address] [facility] Creatinine 0.52(L) 0.56 - 0.96 mg/dL 07/23/2022 2:[address] [facility] Sodium 139 136 - 145 mmol/L 07/23/2022 2:[address] [facility] Potassium 3.8 3.5 - 4.5 mmol/L 07/23/2022 2:[address] [facility] Chloride 104 98 - 107 mmol/L 07/23/2022 2:[address] [facility] CO2 24 22 - 29 mmol/L 07/23/2022 2:[address] [facility] Glucose 97 70 - 115 mg/dL 07/23/2022 2:[address] [facility] Calcium 8.6 8.4 - 10.2 mg/dL 07/23/2022 2:[address] [facility] Anion Gap 15 8 - 18 07/23/2022 2:[address] [facility] BUN/Creatinine Ratio 21 7 - 23 07/23/2022 2:[address] [facility] Osmolality Calculated 287 270 - 300 mOsm/kg 07/23/2022 2:[address] [facility] eGFR by CKD-EPI >90 >=90 mL/min/1.7 3 m2 07/23/2022 2:[address] [facility] Blood BLOOD SPECIMEN / Unknown Lab Venipuncture / Unknown 07/23/2022 12:46 AM CDT 07/23/2022 1:55 AM CDT Romel Perez MD LAB - CHEMISTRY ORD ERABLES [facility] [address] [place] [address], [facility] [phone] * CT HEAD STEREOTACTIC (07/22/2022 4:53 AM CDT) Only the most recent of2 resultswithin the time period is included. Anatomical Region Laterality Modality Head Computed Tomogra phy 07/22/2022 8:56 AM CDT Impressions 07/22/2022 11:27 AM CDT IMPRESSION: Since prior CT of the head from 06/20/2022: 1.Interval postsurgical changes of bilateral deep brain stimulator placement with the tip of the leads terminating in the subthalamic nuclei bilaterally. Expected postsurgical changes as outlined. 2.No evidence of acute intracranial hemorrhage or midline shift. IJuan Miguel MD have personally reviewed and interpreted this examination/study. > Interpreting Provider: Juan Miguel Ghotra MD on 07/22/2022 11:27 AM Narrative 07/22/2022 11:27 AM CDT PROCEDURE: CT HEAD WO CONTRAST, DATE/TIME OF EXAM: 07/22/2022 4:53 AM, LOCATION [facility] INDICATION: G20: Parkinson's disease ([facility]) EXAMINATION: Computed tomography (CT) of the head without contrast ADDITIONAL CLINICAL INFORMATION: Ordering Provider Reason For Exam: Post op Technologist Note: None. Additional: 07/21/2022: OPERATION PERFORMED: Placement of scalp-base fiducial and MRI-guided stereotactic bilateral deep brain stimulator lead placement into the subthalamic nucleus with placement of right DBS rechargeable generator using intraoperative CT guidance and attachment of multiple arrays to left generator with programming of generator. TECHNIQUE: CT of the head was performed without contrast according to standard protocol. CT dose reduction technique was used, including Automated Exposure Control. COMPARISON: CT of the head from 06/20/2022. FINDINGS: Since prior CT of the head from 06/20/2022, there has been interval postoperative findings of bilateral deep brain stimulator placement with the tip of the leads terminating in the subthalamic nuclei bilaterally. Expected postsurgical changes of the small amount of extra-axial pneumocephalus is seen along the anterior frontal convexities with minimal but without significant mass effect on the anterior frontal lobes. Expected postsurgical changes in the scalp with scalp edema, hemorrhage, and foci of air. Surgical luis are noted along with the leads extending along the right scalp with expected postsurgical changes extending along the right frontotemporoparietal scalp and the right retromastoid occipital scalp down to the neck. Otherwise, no acute intra- or extra-axial fluid collections are identified. The ventricles are of stable size, shape, and morphology. The basilar cisterns are patent. No mass effect or midline shift is seen. The castaneda-white matter differentiation is normal. Periventricular white matter hypoattenuation is indicative of chronic small vessel ischemic disease. There is vascular calcification of the carotid siphons and faintly the V4 segment of the right vertebral artery. No acute calvarial fracture is identified. The orbits appear normal. There is mild paranasal sinus disease. Deformity of the nasal septum is again noted. The mastoid air cells are grossly clear. No soft tissue abnormality is otherwise identified. Procedure Note Juan Miguel Ghotra MD - 07/22/2022 PROCEDURE: CT HEAD WO CONTRAST, DATE/TIME OF EXAM: 07/22/2022 4:53 AM, LOCATION [facility] INDICATION: G20: Parkinson's disease ([facility]) EXAMINATION: Computed tomography (CT) of the head without contrast ADDITIONAL CLINICAL INFORMATION: Ordering Provider Reason For Exam: Post op Technologist Note: None. Additional: 07/21/2022: OPERATION PERFORMED: Placement of scalp-base fiducial and MRI-guided stereotactic bilateral deep brain stimulatorlead placement into the subthalamic nucleus with placement of right DBS rechargeable generator using intraoperative CT guidance and attachmentof multiple arrays to left generator with programming of generator. TECHNIQUE: CT of the head was performed without contrast according to standard protocol. CT dose reduction technique was used, including Automated Exposure Control. COMPARISON: CT of the head from 06/20/2022. FINDINGS: Since prior CT of the head from 06/20/2022, there has been interval postoperative findings of bilateral deep brain stimulator placement with the tip of the leads terminating in the subthalamic nuclei bilaterally. Expected postsurgical changes of the small amount of extra-axial pneumocephalus is seen along the anterior frontal convexities withminimal but without significant mass effect on the anterior frontal lobes.Expected postsurgical changes in the scalp with scalp edema, hemorrhage, and fociof air. Surgical lius are noted along with the leads extending along the right scalp with expected postsurgical changes extending along the right frontotemporoparietal scalp and the right retromastoid occipital scalpdown to the neck. Otherwise, no acute intra- or extra-axial fluid collections areidentified. The ventricles are of stable size, shape, and morphology. The basilar cisterns are patent. No mass effect or midline shift is seen. The castaneda-white matter differentiation is normal. Periventricular whitematter hypoattenuation is indicative of chronic small vessel ischemic disease. There is vascular calcification of the carotid siphons and faintly theV4 segment of the right vertebral artery. No acute calvarial fracture is identified. The orbits appear normal. There is mild paranasal sinus disease. Deformity of the nasal septum is again noted. The mastoid air cells are grossly clear. No soft tissue abnormality is otherwise identified. IMPRESSION: Since prior CT of the head from 06/20/2022: 1.Interval postsurgical changes of bilateral deep brain stimulator placement with the tip of the leads terminating in the subthalamicnuclei bilaterally. Expected postsurgical changes as outlined. 2.No evidence of acute intracranial hemorrhage or midline shift. I, Juan Miguel Ghotra MD have personally reviewed and interpretedthis examination/study. > Interpreting Provider: Juan Miguel Ghotra MD on 07/22/2022 11:27 AM Romel Perez MD CT ORDERABLES * XR CHEST 1VW PORTABLE (07/22/2022 12:12 AM CDT) Anatomical Region Laterality Modality Chest Radiographic Tatianna ging 07/22/2022 12:2 7 PM CDT Narrative 07/22/2022 3:17 PM CDT PROCEDURE: XR CHEST 1VW PORTABLE, DATE/TIME OF EXAM: 07/22/2022 12:12 AM, LOCATION [facility] INDICATION: G20: Parkinson's disease ([facility]) ADDITIONAL CLINICAL INFORMATION: Ordering Provider Reason For Exam: pos top COMPARISON: Chest radiograph 07/07/2022 FINDINGS/IMPRESSION: Lines, tubes, hardware: *New insertion of an electronic device in the right upper chest. Expected postoperative subcutaneous gas/edema. There is no focal consolidation, pleural effusion, or pneumothorax. The cardiomediastinal silhouette is normal. The visible bony thorax is intact. Report dictated by Lela Willis MD, MD (vice president [employer]). VICTOR HUGO Sprague MD have personally reviewed and interpreted this examination/study. > Interpreting Provider: VICTOR HUGO NGUYEN MD on 07/22/2022 3:17 PM Procedure Note Victor Hugo Nguyen MD - 07/22/2022 PROCEDURE: XR CHEST 1VW PORTABLE, DATE/TIME OF EXAM: 07/22/2022 12:12AM, LOCATION [facility] INDICATION: G20: Parkinson's disease ([facility]) ADDITIONAL CLINICAL INFORMATION: Ordering Provider Reason For Exam: pos top COMPARISON: Chest radiograph 07/07/2022 FINDINGS/IMPRESSION: Lines, tubes, hardware: *New insertion of an electronic device in the right upper chest.Expected postoperative subcutaneous gas/edema. There is no focal consolidation, pleural effusion, or pneumothorax. The cardiomediastinal silhouette is normal. The visible bony thorax isintact. Report dictated by Lela Willis MD, MD (vice president [employer]). VICTOR HUGO Sprague MD have personally reviewed and interpreted this examination/study. > Interpreting Provider: VICTOR HUGO NGUYEN MD on 07/22/2022 3:17 PM Romel Perez MD DIAGNOSTIC IMAGING ORDERABLES * XR SKULL < 4 VW (07/21/2022 4:43 PM CDT) Anatomical Region Laterality Modality Head Radiographic Tatianna ging 07/22/2022 10:5 1 AM CDT Impressions 07/22/2022 11:41 AM CDT IMPRESSION: Interval postoperative changes from bilateral deep brain stimulator implantation with expected postoperative sequela. No acute complication. Expected postoperative pneumocephalus. VICTOR HUGO Sprague MD have personally reviewed and interpreted this examination/study. > Interpreting Provider: VICTOR HUGO NGUYEN MD on 07/22/2022 11:41 AM Narrative 07/22/2022 11:41 AM CDT PROCEDURE: XR SKULL 3VW OR LESS, DATE/TIME OF EXAM: 07/21/2022 4:44 PM, LOCATION [facility] INDICATION: G20: Parkinson's disease ([facility]) ADDITIONAL CLINICAL INFORMATION: Ordering Provider Reason For Exam: post op COMPARISON: CT of the head from 06/20/2022 TECHNIQUE: Radiograph of the skull anteroposterior and lateral views FINDINGS: Interval postoperative changes from bilateral deep brain stimulator implantation prior exam dated 06/20/2022. Stimulator leads terminate over the middle cranial fossa, in the expected region of the deep thalamic nuclei. Skin luis are seen over the bilateral calvaria and frontal approach peggy hole's as well as the right temporal region. The single intact stimulator lead traverses the right lateral neck and right lung apex. Expected postoperative pneumocephalus is identified. No acute calvarial fracture is noted. The sinuses are well aerated. Procedure Note Victor Hugo Nguyen MD - 07/22/2022 PROCEDURE: XR SKULL 3VW OR LESS, DATE/TIME OF EXAM: 07/21/2022 4:44 PM, LOCATION [facility] INDICATION: G20: Parkinson's disease ([facility]) ADDITIONAL CLINICAL INFORMATION: Ordering Provider Reason For Exam: post op COMPARISON: CT of the head from 06/20/2022 TECHNIQUE: Radiograph of the skull anteroposterior and lateral views FINDINGS: Interval postoperative changes from bilateral deep brain stimulator implantation prior exam dated 06/20/2022. Stimulator leads terminate overthe middle cranial fossa, in the expected region of the deep thalamicnuclei. Skin luis are seen over the bilateral calvaria and frontal approachburr hole's as well as the right temporal region. The single intactstimulator lead traverses the right lateral neck and right lung apex. Expected postoperative pneumocephalus is identified. No acute calvarial fractureis noted. The sinuses are well aerated. IMPRESSION: Interval postoperative changes from bilateral deep brain stimulator implantation with expected postoperative sequela. No acute complication. Expected postoperative pneumocephalus. I, VICTOR HUGO NGUYEN MD have personally reviewed and interpreted this examination/study. > Interpreting Provider: VICTOR HUGO NGUYEN MD on 07/22/2022 11:41 AM Romel Perez MD DIAGNOSTIC IMAGING ORDERABLES * FL OARM SURGERY (07/21/2022 3:30 PM CDT) Narrative [facility] - 07/21/2022 4:47 PM CDT Fluoroscopy was used for this exam in the OR. Please see the Operative report. Romel Perez MD FLUOROSCOPY ORDERAB LES [facility] * ETT LINE PERFORMABLE (07/21/2022 2:31 PM CDT) Narrative Magalys Ellis Anes Asst - 07/21/2022 2:31 PM CDT Magalys Ellis Anes Asst 07/21/2022 2:33 PM Endotracheal Tube Placement: Patient Location: OR. Intubation Event Date/Time: 07/21/2022 2:23 PM Procedure: intubation ([id number]). Procedure Section: Sedation: under general anesthesia. Indications for Airway Management: anesthesia Induction: standard IV Patient Position: supine Mask Ventilation: easy. Blade Type: Daniel Blade Size: 3 Laryngoscopy View: grade 3 (epiglottis) Intubation Adjuncts: stylet and cricoid pressure Nasal Airway Size: 6 Tube: endotracheal tube Placement: oral Tube type: cuff - inflated Depth of Insertion (CM): 22 Measured From: lips Cuff volume (mL): 7 Cuff Inflated With: air Number of Attempts: 1. Placement Verified By: direct visualization, bilateral breath sounds, chest auscultation, CO2 monitor and CO2 detector Tube secured with: adhesive tape. Dentition unchanged? Yes Procedure Start Time: 07/21/2022 2:23 PM. Staff Section Anesthesia Provider: Valerie Hooks MD, Performed the procedure Valerie Hooks MD GENERAL ANESTHESIA O RDERABLES * BLOOD TYPE VERIFICATION (07/21/2022 7:05 AM CDT) ABO Rh O POS 07/21/2022 7:5 3 AM CDT [facility] Blood Bank BLOOD SPECIMEN / Unknown 07/21/2022 7:05 AM CDT 07/21/2022 7:10 AM CDT Rylee Marvin MD LAB - BLOOD BANK ORD ERABLES Performing Organization Address City/[facility]/ZIP Co de Phone Number [facility] [address] [place] [phone], [place] [phone] * TYPE + SCREEN PANEL (07/21/2022 6:51 AM CDT) Pathologist [facility] Antibody Screen NEG 7:32 AM CDT [facility] ABO Rh O POS 07/21/2022 7:32 AM CDT [facility] Blood Bank BLOOD SPECIMEN / Unknown Venipuncture / Unknown 07/21/2022 6:51 AM CDT 07/21/2022 6:53 AM CDT Dottie Guardado APRN-[facility] LAB - BLOOD BANK ORDERABLES Performing Organization Address [facility]/ZIP Co de Phone Number [facility] [address] [place] [phone], [place] [phone] * PTT [facility] (07/07/2022 10:17 AM CDT) APTT 29.1 23.0 - 38.4 Seconds 07/07/2022 11:19 AM CDT [facility] Comment:Suggested therapeuti c range for full dose I.V. unfractionated heparin therapy for venous thromboembolism is 71 to 109 seconds. Blood BLOOD SPECIMEN / Unknown Lab Venipuncture / Unknown 07/07/2022 10:17 AM CDT 07/07/2022 10:54 AM CDT Romel ePrez MD LAB - COAGULATION O RDERABLES [facility] [address] [place] [phone], [place] [phone] * PT-INR [facility] (07/07/2022 10:17 AM CDT) PT 12.7 12.1 - 14.8 Seconds 07/07/2022 11:[address] [facility] INR 1.0 See Comment 07/07/2022 11:[address] [facility] Comment:The suggested therap eutic range for standard coumadin (warfarin) therapy is an INR of 2.0-3.0. For high-risk patients (Mechanical Mitral Valve Prosthesis, etc.), the suggested prophylactic therapeutic range is an INR of 2.5-3.5. Blood BLOOD SPECIMEN / Unknown Lab Venipuncture / Unknown 07/07/2022 10:17 AM CDT 07/07/2022 10:54 AM CDT Romel Perez MD LAB - COAGULATION O RDERABLES [facility] [address] [place] [phone], [facility] [phone] * URINALYSIS W/MICROSCOPIC REFLEX TO CULTURE (07/07/2022 10:17 AM T) Color UA Straw Straw, Yellow 07/07/2022 11:[address] [facility] Clarity UA Clear Clear 07/07/2022 11:[address] [facility] Specific [place] UA 1.005 1.005 - 1.030 07/07/2022 11:[address] [facility] pH UA 6.0 5.0 - 8.0 pH 07/07/2022 11:[address] [facility] Protein UA Negative Negative 07/07/2022 11:[address] [facility] Glucose UA Negative Negative 07/07/2022 11:[address] [facility] Ketone UA Negative Negative 07/07/2022 11:[address] [facility] Bilirubin UA Negative Negative 07/07/2022 11:[address] [facility] Blood UA Negative Negative 07/07/2022 11:[address] [facility] Nitrite UA Negative Negative 07/07/2022 11:[address] [facility] Leukocyte Esterase Negative Negative 07/07/2022 11:[address] [facility] Urobilinogen UA Negative Negative mg/dL 07/07/2022 11:[address] [facility] RBC UA 0-2 None Seen, 0-2, 3-5 /HPF 07/07/2022 11:33 AM CDT [facility] WBC UA 0-5 None Seen, 0-5 /HPF 07/07/2022 11:33 AM CDT [facility] Squamous Epithelial Cells UA None Seen None Seen, 0-2, 3-5 /HPF 07/07/2022 11:33 AM CDT [facility] Urine URINE SPECIMEN OBTAINED BY CLEAN CATCH PROCEDURE / Unknown Collection / Unknown 07/07/2022 10:17 AM CDT 07/07/2022 11:28 AM CDT Narrative [facility] - 07/07/2022 11:33 AM CDT Culture Not Indicated Romel Perez MD LAB - URINALYSIS OR DERABLES [facility] [address] [place] [phone], [facility] [phone] * XR CHEST 2VW (07/07/2022 10:07 AM CDT) Anatomical Region Laterality Modality Chest Radiographic Tatianna ging 07/07/2022 10:2 1 AM CDT Impressions 07/09/2022 10:09 AM CDT IMPRESSION: No acute pulmonary process. Report dictated by Joseph Whitman MD (vice president [employer]). I, Matthew Walden DO have personally reviewed and interpreted this examination/study. > Interpreting Provider: Matthew Walden DO on 07/09/2022 10:09 AM Narrative 07/09/2022 10:09 AM CDT PROCEDURE: XR CHEST 2VW, DATE/TIME OF EXAM: 07/07/2022 10:07 AM, LOCATION [facility] INDICATION: Z01.818: Pre-op testing ADDITIONAL CLINICAL INFORMATION: COMPARISON: None. FINDINGS: There is no focal consolidation, pleural effusion, or pneumothorax. The cardiomediastinal silhouette is normal. The visible bony thorax is intact. Procedure Note Matthew Walden DO - 07/09/2022 PROCEDURE: XR CHEST 2VW, DATE/TIME OF EXAM: 07/07/2022 10:07 AM, LOCATION [facility] INDICATION: Z01.818: Pre-op testing ADDITIONAL CLINICAL INFORMATION: COMPARISON: None. FINDINGS: There is no focal consolidation, pleural effusion, or pneumothorax. The cardiomediastinal silhouette is normal. The visible bony thorax isintact. IMPRESSION: No acute pulmonary process. Report dictated by Joseph Whitman MD (vice president [employer]). I, Matthew Walden DO have personally reviewed and interpreted this examination/study. > Interpreting Provider: Matthew Walden DO on 07/09/2022 10:09 AM Romel Perez MD DIAGNOSTIC IMAGING ORDERABLES * EKG 12-LEAD (07/07/2022 8:58 AM CDT) Ventricular Rate 74 BPM [facility] Atrial Rate 74 BPM [facility] P-R Interval 128 ms [facility] QRS Duration ms 76 ms [facility] Q-T Interval ms 384 ms [facility] QTC Calculation (Bezet) 426 ms [facility]USE Calculated P [place] 56 degrees [facility] Calculated R [place] 20 degrees [facility] Calculated T [place] 40 degrees [facility] M[facility] Interpretation EKG NORMAL SINUS RHYTHM NONSPECIFIC ST & T WAVE CHANGES ABNORMAL ECG NO PREVIOUS ECGS AVAILABLE Confirmed by EILEEN WALDRON, [facility] ([id number]) on 07/11/2022 6:28:07 AM [facility] 07/07/2022 8:58 AM CDT 07/11/2022 6:28 AM CDT Romel Perez MD ECG ORDERABLES [facility] * MRI BRAIN WWO CONTRAST (06/20/2022 5:09 PM MANAGER OF CASE) Anatomical Region Laterality Modality Head Magnetic Resonan ce 06/21/2022 11:3 2 AM MANAGER OF CASE Impressions 06/21/2022 11:40 AM MANAGER OF CASE IMPRESSION: 1.Treatment planning study. 2.No acute intracranial abnormality. > Interpreting Provider: Mali Fry MD on 06/21/2022 11:40 AM Narrative 06/21/2022 11:40 AM MANAGER OF CASE PROCEDURE: MRI BRAIN WWO CONTRAST, DATE/TIME OF EXAM: 06/20/2022 5:09 PM, LOCATION [facility] INDICATION: G20: Parkinson disease ([facility]) Z01.818: Preoperative examination COMPARISON: CT head from earlier the same day was reviewed. EXAMINATION: MRI of the brain without and with intravenous contrast TECHNIQUE: MRI of the brain was performed without and with intravenous contrast according to treatment planning protocol for DBS. CONTRAST: Gadobutrol 1 mmol/ml iv ssm so: 6 ml FINDINGS: Mild chronic microvascular ischemic changes are seen in the supratentorial white matter. The parenchymal volume is grossly within normal limits for age. 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 Otherwise, no abnormal intracranial enhancement is noted. There is no acute infarction or MR evidence of acute intracranial hemorrhage. There is no mass effect, hydrocephalus or extra-axial fluid collection. The sella is within normal limits. Flow voids of major intracranial arteries are noted. The dural venous sinuses are patent. The paranasal sinuses and tympanomastoid cavities are aerated. The orbits are unremarkable. Procedure Note Mali Fry MD - 06/21/2022 PROCEDURE: MRI BRAIN WWO CONTRAST, DATE/TIME OF EXAM: 06/20/2022 5:09PM, LOCATION [facility] INDICATION: G20: Parkinson disease ([facility]) Z01.818: Preoperative examination COMPARISON: CT head from earlier the same day was reviewed. EXAMINATION: MRI of the brain without and with intravenous contrast TECHNIQUE: MRI of the brain was performed without and with intravenous contrast according to treatment planning protocol for DBS. CONTRAST: Gadobutrol 1 mmol/ml iv ssm so: 6 ml FINDINGS: Mild chronic microvascular ischemic changes are seen in thesupratentorial white matter. The parenchymal volume is grossly within normal limits for age. 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 Otherwise, no abnormal intracranial enhancement is noted. There is no acute infarction or MR evidence of acute intracranial hemorrhage. There is no mass effect, hydrocephalus or extra-axial fluid collection. The sella is within normal limits. Flow voids of major intracranial arteries are noted. The dural venous sinuses are patent. The paranasal sinuses and tympanomastoid cavities are aerated. Theorbits are unremarkable. IMPRESSION: 1.Treatment planning study. 2.No acute intracranial abnormality. > Interpreting Provider: Mali Fry MD on 06/21/2022 11:40 AM Mart Berriosanais TRI[facility] MR ORDERABLES * CREATININE - POCT INTERFACED (06/20/2022 4:12 PM MANAGER OF CASE) Creatinine POCT 0.51 0.30 - 1.30 mg/dL 06/20/2022 4:13 PM MANAGER OF CASE [facility] Comment:Range ok for MRI eGFR >90 >90 mL/min/1.7 3 m2 06/20/2022 4:13 PM MANAGER OF CASE [facility] Blood BLOOD SPECIMEN / Unknown 06/20/2022 4:12 PM MANAGER OF CASE 06/20/2022 4:13 PM MANAGER OF CASE Mart Khanna PAPER MACHINE SUPERVISOR-[facility] - POINT OF C ARE ORDERABLES [facility] [address] [place] [phone], [facility] [phone] Care Teams Sidehand Relationship Specialty Start Date End Date Erich Mclain MD [address] [place] [phone] PCP - General 04/28/22
--- OUTSIDE RECORDS SUMMARY | 2024-06-19 09:55 | XMS_ITS | Encounter Summary ---
Author Organization [facility] Address 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[employer] Gender Identity Not on file Sexual Orientation Not on file documented as of this encounter Plan of Treatment Not on file documented as of this encounter Procedures Procedure Name Priority Date/Time Associated Diagnosis Comments MAMMO SCREEN BILAT W OR WO CAD Routine 07/23/2007 11:15 AM CDT documented in this encounter Results * MAMMO DIGITAL SCREEN BILAT (07/23/2007 11:15 AM CDT) Anatomical Region Laterality Modality Breast Bilateral Other 07/23/2007 11:1 5 AM CDT Narrative 07/24/2007 5:15 PM CDT [address] [address] Admit Date: 07/23/2007 AMI RIVERA Sex: F Admit Prov: MEAGAN JACOBS Date: 1945 Primary Care Prov: SOTERO BARAJAS CMRN: [id number] Room: ARIEL N: [id number] IMAGING SERVICES Ordering Prov: MEAGAN JACOBS Accession Number: [id number] Interpretation BILATERAL SCREENING DIGITAL MAMMOGRAMS WITH COMPUTER ASSISTED DIAGNOSIS 07/23/2007 Comparison is made to 02/22/04. The films were reviewed using the CAD system. The breast parenchyma is heterogeneously dense. No new dominant masses, suspicious calcifications or areas of parenchymal asymmetry or distortion are identified. Impression: Stable screening mammogram Recommend routine followup Assessment BIRADS: 1-Negative Recommendation: Normal interval follow-up Dictated by: MADHAVI ELI Electronically signed by: MADHAVI ELI 07/24/2007 17:15 Transcribed: 07/24/2007 12:03 AMK Procedure Note Madhavi Eli - 07/24/[address] [address] Admit Date: 07/23/2007 NICOLE RIVERAYCE Sex: F Admit Prov: MEAGAN JACOBS Nicanor Date: 1945 Primary Care Prov: SOTERO BARAJAS CMRN: [id number] Room: ARIEL SSN: [id number] IMAGING SERVICES Ordering Prov: MEAGAN JACOBS Interpretation BILATERAL SCREENING DIGITAL MAMMOGRAMS WITH COMPUTER ASSISTEDDIAGNOSIS 07/23/2007 Comparison is made to 02/22/04. The films were reviewed using theCAD system. The breast parenchyma is heterogeneously dense. No newdominant masses, suspicious calcifications or areas of parenchymal asymmetryor distortion are identified. Impression: Stable screening mammogram Recommend routine followup Assessment BIRADS: 1-Negative Recommendation: Normal interval follow-up Dictated by: MADHAVI ELI Electronically signed by: MADHAVI ELI 07/24/2007 17:15 Transcribed: 07/24/2007 12:03 AMK us Meagan Jacobs Jr., MD MAMMO ORDERABLES Final Res ult documented in this encounter Visit Diagnoses Diagnosis Other screening mammogram documented in this encounter Care Teams Communications Advisor Relationship Specialty Start Date End Date Sotero Barajas MD [address] [place] [phone] PCP - General Family Practice 09/27/10 documented as of this encounter
--- OUTSIDE RECORDS SUMMARY | 2024-06-19 09:55 | XMS_ITS | Data Portability ---
Author Organization [facility] [employer] [facility], Main Office Address [address] [place] [address] Care Team Providers Care Dual Rate Dealer Name Role Phone CAN MACKEY Primary Care Provider CAN MACKEY Referring Provider Assessment Encounter Date Assessment Date Assessment LastModified by Organization Details LastModified Time 05/21/2023 05/21/2023 This note is dictated and transcribed by [employer]. Crew Chief variances may occur. Despite proofreading, typographical errors may occur. Occasional wrong-word or 'efnbg-o-zywv' substitutions may have occurred due to the inherent limitations of voice recording. Read the chart carefully and recognize, using context, where substitutions have occurred. Not available 05/21/2023 10:11:03 10/01/2023 10/01/2023 This note is dictated and transcribed by [employer]. Crew Chief variances may occur. Despite proofreading, typographical errors may occur. Occasional wrong-word or 'smqyq-h-aqmn' substitutions may have occurred due to the inherent limitations of voice recording. Read the chart carefully and recognize, using context, where substitutions have occurred. Not available 10/01/2023 13:50:46 12/24/2023 12/24/2023 This note is dictated and transcribed by [employer]. Crew Chief variances may occur. Despite proofreading, typographical errors may occur. Occasional wrong-word or 'zikpz-t-msxs' substitutions may have occurred due to the inherent limitations of voice recording. Read the chart carefully and recognize, using context, where substitutions have occurred. Not available 12/24/2023 10:32:08 Plan of Treatment Reminders Order Date Submit Date Provider Last Modified By Organization Details Last Modified Time Details Appointments None recorded. Lab None recorded. Referral None recorded. Procedures None recorded. Surgeries None recorded. Imaging XR, foot, 3 or more view 2023 024 gm 7 [facility] [place], [address], [place], [address], 4 13:52:28 Medication Orders ammonium lactate 12 % lotion 2023 024 [id number], [address], [place], [place], [id number], 13:52:35 Patient TargetsNo targets recorded. Patient InstructionsNo instructions recorded. Reason for Referral None Reported. Results Created Date Observation Date Name Description Value Unit Range Abnormal Flag Note LastModifiedBy Organization Detail LastModifiedTime 10/01/19 24 XR, foot, 3 or more view No observ ation record ed. [email or web address] [facility] [place] [address], [place], [address], 10/01/2023 13:52:00 Result Notes None recorded. Problems Name Problem SNOMED Code Status Onset Date Resolution Date Notes Provider Name and Address Organization Details Recorded Time Hyperchole sterolemia 04897107 Active 2016 Not Available [facility] 3 19:16:57 Arthritis 3080196 Active 2016 Not Available [facility] 3 19:16:57 Porokerato sis 062746459 Active 2022 Not Available [facility] 3 19:16:57 Parkinson' s disease 05994694 Active 2016 Not Available [facility] 3 19:16:57 Pain in left foot 4174282573311 07 Active 2023 Bubba Win, DPDennys [address] [facility], [address], [place], [address] , [facility] 4 10:05:04 Acquired left hallux rigidus 8284451371489 05 Active 2023 Bubba Win DPM [address], [address], [place], [address] , [facility] [employer] [facility] [employer] 13:52:49 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 Procedures Surgical History Date Name Laterality Status Provider Name and Address Organization Details Recorded Time 12/24/2023 Callus Debridement , One completed Bubba Win DPM [address], [address], [place], [address], [facility] [employer] [facility] [employer] 12/24/2023 10:32:03 10/01/2023 Callus Debridement , One completed Bubba Win DPM [address], [address], [place], [address], [employer] [facility] [employer] 10/01/2023 13:50:39 05/21/2023 Callus Debridement , One completed Bubba Win DPM [address], [address], [place], [address], [employer] [facility] [employer] 05/21/2023 10:04:53 Imaging Results Imaging Date Name Status LastModified by Organiz ation Details LastModified Time 10/01/2023 XR, foot, 3 or more view completed [email or web address] [facility] [place] [address] [facility] [address] [address], [place], [address], 10/01/2023 13:52:00 Procedure Notes None recorded. Medical Equipment None Reported. Allergies No known drug allergies Medications Name Sig Start Date Stop Date Status Note LastModified by Organization Details LastModified Time amantadine HCl 100 mg tablet TAKE 1 TABLET BY MOUTH ONCE DAILY active Not Available Not Available No t Available ammonium lactate 12 % lotion APPLY TOPICALLY TO THE AFFECTED AREA EVERY DAY NEEDED active Not Available Not Available No t Available carbidopa ER 25 mg-levodopa 100 mg tablet,exte nded release TAKE 1 TABLET BY MOUTH AT BEDTIME active Not Available Not Available No t Available azithromyci n 250 mg tablet 09/30 completed Not Available Not Available Not Available sucralfate 100 mg/mL oral suspension active Not Available Not Available N ot Available meloxicam 15 mg tablet active Not Available Not Available Not Available prednisolon e acetate 1 % eye drops,suspe nsion 09/30 completed Not Available Not Available Not Available ciprofloxac in 0.3 % eye drops 09/30 completed Not Available Not Available Not Available pantoprazol e 40 mg tablet,vaibhav yed release TAKE 1 TABLET BY MOUTH EVERY MORNING 09/30 completed Not Available Not Available Not Available simvastatin 20 mg tablet TAKE 1 TABLET BY MOUTH EVERY DAY AT BEDTIME active Not Available Not Available No t Available cyanocobala min (vit B-12) 1,000 mcg/mL injection solution ADMINISTE R 1 ML IN THE MUSCLE WEEKLY active Not Available Not Available No t Available diclofenac 0.1 % eye drops 09/30 completed Not Available Not Available Not Available omeprazole 20 mg capsule,del ayed release TAKE 1 CAPSULE BY MOUTH DAILY 09/30 completed Not Available Not Available Not Available carbidopa 25 mg-levodopa 100 mg tablet active Not Available Not Available Not Available escitalopra m 5 mg tablet TAKE 1 TABLET BY MOUTH DAILY active Not Available Not Available No t Available Boostrix Tdap 2.5 Lf unit-8 mcg-5 Lf/0.5 mL intramuscul ar syringe active Not Available Not Available N ot Available rasagiline 1 mg tablet TAKE 1 TABLET BY MOUTH DAILY active Not Available Not Available No t Available Vitals Date Recorded Oxygen saturation Oxygen saturation in Arterial blood by Pulse oximetry Heart rate Respiratory rate Systolic blood pressure Diastolic blood pressure Provider Name and Address Organization Details Last Updated DateTime 3 98 % 98 % 85 /min 16 /min 116 mm[Hg] 63 mm[Hg] Not Available [facility] 3 19:16:49 Date Recorded Heart rate Respiratory rate Oxygen saturation Oxygen saturation in Arterial blood by Pulse oximetry Systolic blood pressure Diastolic blood pressure Provider Name and Address Organization Details Last Updated DateTime 4 86 /min 14 /min 98 % 98 % 108 mm[Hg] 58 mm[Hg] Melissa Hector [place] - [employer] 4 11:41:17 Date Recorded Body height Body mass index (BMI) Body weight Heart rate Respiratory rate Body temperature Oxygen saturation Oxygen saturation in Arterial blood by Pulse oximetry Systolic blood pressure Diastolic blood pressure Provider Name and Address Organization Details Last Updated DateTime 4 162.56 cm 21.5 kg/m2 00994.0 5 g 74 /min 14 /min 97.6 [degF] 98 % 98 % 120 mm[Hg] 76 mm[Hg] Ghada Kasper [place] - [facility] [employer] 4 10:18:27 Social History None recorded. Functional Status None recorded. Mental Status None recorded. Family History Nothing Reported Notes:heart- mom and dad Medical History Condition Response HIGH CHOLESTEROL / HYPERLIPIDEMIA Y Gynecological HistoryNo gynecological history recorded. Obstetrics History GPAL:G 0 P 0 0 0 0 Past Encounters Encounter ID Performer Location Encounter Start Date Encounter Closed Date Diagnosis/Indication Diagnosis SNOMED-CT Code Diagnosis ICD10 Code Diagnosis Note [id number] [facility] [place] [address] [facility] [place] [address] 05/09/2022 00:00:00 05/11/2022 08:54:05 [id number] Bubba Win DPM [facility] [place] [address] [place] [address] 05/21/2023 09:52:47 05/29/2023 13:14:53 Porokeratosis 061491765 Q82.8 left foot -x1 sub third met [facility] ed without incidentco ntinue Amlactin lotion and offloading recommend use of pumice stone dailyconti nue supportive shoe gearfollow -up as needed- if continues to return will perform surgical excision Pain in left foot 430273 3463 77138 M79.672 secondary to above [id number] Bubba Win DPM [facility] [place] [address] [place] [address] 10/01/2023 11:33:22 2023 15:35:07 Pain in left foot 7711465949 07062 M79.672 secondary to aboveRx [facility] Porokeratosis 577113264 Q82.8 left foot -x1 sub third met [facility]Rx [facility] orthotics to offload 3rd metatarsal head, denies surgeryDeb rided without incidentco ntinue Amlactin lotion and offloading recommend use of pumice stone dailyconti nue supportive shoe gearfollow -up as needed- if continues to return will perform surgical excision Acquired l eft hallux rigidus 8806204773 12660 M20.22 [id number] Bubba Win DPM [facility] [place] [address] [facility] [address] [place] [address] 12/24/2023 10:10:03 12/25/2023 13:35:39 Porokeratosis 080949554 Q82.8 left foot -x1 sub third met headRx custom orthotics to offload 3rd metatarsal head, denies surgery--- continueDe brided without incidentco ntinue Amlactin lotion and offloading recommend use of pumice stone dailyconti nue supportive shoe gearfollow -up as needed- if continues to return will perform surgical excision 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 0900238097 2261791 M20.21 M20.22 treatment options reviewedco ntinue with conservati ve therapy patient for surgeryfol low-up as needed Health Concerns Section Related Observation LastModified by Organization Detai ls LastModified Time None Recorded Concern Status LastModified by Organization Details LastModified Time None Recorded Advance Directives Directive None Recorded Payers Encounter Date Sequence Insurance Name Policy Number Policy Ellis Covered Member ID Ellis Member ID Guarantor Name 05/21/2023 1 [employer] (MEDICARE REPLACEMENT PPO) [id number] Ami Rivera [id number] Ami Rivera 10/01/2023 1 [employer] (MEDICARE REPLACEMENT PPO) [id number] Ami Rivera [id number] Ami Rivera 12/24/2023 1 [employer] (MEDICARE REPLACEMENT PPO) [id number] Ami Rivera [id number] Ami Rivera Notes Date Note Type Note Provider Name and Address Organization Details Recorded Time 4 text/html . Patient is a 77-year-old female who returns to the office for foot pain secondary to poor keratosis to the plantar sub 3rd metatarsal head. Patient had the area debrided and and had significant pain reduction and after 1 year she returns. Patient denies any open wounds or infection. Patient states that she is having sharp pain when she has pressure to the area but when she is at rest has no pain. Patient denies any open wounds or injury to the foot. Patient denies any other complaints. Bubba Win DPM [address], [address], [place], [address], [employer] 05/21/2023 10:13:23 4 text/html . Patient is a 77-year-old female who returns for follow-up on porokeratosis to the plantar left foot. Patient states she continues have pain and the painful callus. Patient denies any open wounds or infection she states when she is walking or standing she is more to her foot. Patient denies any other complaints. Bubba Win DPM [address], [place], [address], [employer] 10/01/2023 13:53:34 4 text/html . Patient is a 78-year-old female she returns the office for follow-up on a painful callus to the left plantar foot which has nearly resolved. Patient has changed her shoe gear and insoles and states that she is no longer having any discomfort. 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 patient denies any other pedal complaints. Bubba Win DPM [address], [place], [address], [employer] 12/24/2023 10:33:15 OBGyn Episode No OBEpisode recorded.
--- OUTSIDE RECORDS SUMMARY | 2024-06-19 09:55 | XMS_ITS | Clinical Summary ---
Author Organization [facility] Address [address] [place] [address] Care Team Providers Care Plaster Machine Operator Name Role Phone Erich Mclain MD Primary Care Provider Source Comments [facility], [facility],non-owned Affiliates and Associated Physician Practices is [facility] consisting of ambulatory clinics and hospital sitesin [place], [place], [place] and [place]. This disclosure is being madepursuant to the Care Everywhere program and may not contain all information available regarding this patient. Last updated 18.[facility] Allergies No known active allergies Medications * [...] Comments Blood Pressure 130/74 02/18/2024 1:33 PM IN [employer] Pulse 88 02/18/2024 1:33 PM [employer] Temperature 36.1 C (97 F) 02/18/2024 1:33 PM [employer] Respiratory Rate 16 07/23/2022 11:40 AM CDT Oxygen Saturation 96% 02/18/2024 1:33 PM [employer] Inhaled Oxygen Concentration - - Weight 58.1 kg (128 lb) 02/18/2024 1:33 PM [employer] Height 162.6 cm (5' 4 ) 02/18/2024 1:33 PM [employer] Body Mass Index 21.97 02/18/2024 1:33 PM IN [employer] Plan of Treatment Upcoming Encounters Date Type Department Care Team (Late st Contact Info) Description 08/18/2024 10:00 AM CDT Office Visit [facility] - Neurology [address] [facility] [address] [place] [address] Mart Khanna APRN-GOLF COURSE MECHANIC [address] [place] [address] Health Maintenance Due Date Last Done Comments BONE DENSITY TESTING 1945 HEPATITIS C SCREENING 09/27/1964 DTAP/TDAP/TD VACCINES (1 - Tdap) 1965 PNEUMOCOCCAL VACCINE 50+ (1 of 1 - PCV) 1996 ZOSTER VACCINE (1 of 2) 1996 Respiratory Syncytial Virus (RSV) Vaccine Pt: or over 60 yrs (1 - 1-dose 75+ series) 2021 COVID-19 VACCINE ( - 2023-2 5 season) 2023 INFLUENZA VACCINE (#1) 2023 DEPRESSION SCREENING 04/16/2024 MEDICARE AWV CALENDAR YEAR 2024 HEPATITIS B VACCINE Aged Out No longe r eligible based on patient's age to complete this topic HIB VACCINE Aged Out No longer eligi ble based on patient's age to complete this topic HPV VACCINE Aged Out No longer eligi ble based on patient's age to complete this topic MENINGOCOCCAL (Group B) VACCINE Aged Out No longer eligible based on patient's age to complete this topic MENINGOCOCCAL VACCINE Aged Out No josiane vinnie eligible based on patient's age to complete this topic Medical Devices Implanted Type Area Catalyst Unit Operator Device Identifier Shelf Expiration Date Model / Serial / Lot Right Implant Vercise [place] 45 Cm 8 Contact Dbs Directional Lead Kit Implanted:Qty: 1 on 07/21/2022 by Sai Bradford MD at [facility] Right: Brain DB-2202-45 / [id number] / Left Implant [employer]ercise 45cm 8 Contact Dbs Directional Lead Kit Implanted:Qty: 1 on 07/21/2022 by Sai Bradford MD at [facility] Left: Brain 05/23/2024 DB-2202-45 / [id number] / Right Implant [employer] Genus R16 Implantable Pulse Generator Kit Implanted:Qty: 1 on 07/21/2022 by Romel Perez MD at [facility] Right: Chest 06/13/2024 DB-1216 / [id number] / [id number] 55cm, 2x8 Contact Implanted:Qty: 1 on 07/21/2022 by Romel Perez MD at [facility] Right: Chest 02/02/2024 DB-3128-55 B / [id number] / Kit Nrstm Dbs Bur Hl Plg Strl Implanted:Qty: 1 on 07/21/2022 by Romel Perez MD at [facility] Left: Brain [employer] Scimed [id number] / / [id number] Kit Nrstm Dbs Bur Hl Plg Strl Implanted:Qty: 1 on 07/21/2022 by Romel Perez MD at [facility] Right: Brain [employer] Scimed [id number] / / Explanted Type Area Catalyst Unit Operator Device Identifier Shelf Expiration Date Model / Serial / Lot Nrstm Impl Bst Sci Or Cbl Pshbtn 8 Cntct Explanted:Qty: 1 on 07/21/2022 at [facility] Left: Brain [employer] Neuro [id number] / / Advance Directives Documents on File Type Date Recorded Patient Natural History Collections Curator Expl anation Adv Directive/Living Will/POA 07/24/2022 11:33 AM * Full Code (Latest Code Status on File) Date Activated Date Inactivated Comments 07/21/2022 3:58 PM 07/23/2022 4:47 PM Care Teams Plaster Machine Operator Relationship Specialty Start Date End Date Erich Mclain MD [address] [place] [address] PCP - General 04/28/22
== END 2024-06-19 09:10 | disposition home or self-care (01) ==
PROVIDERS: PCP Family Medicine; Visit Provider Nurse Practitioner Family
DX: Z12.31 Encounter for screening mammogram for malignant neoplasm of breast (principal)
CPT/HCPCS: 77063; 77067

== ENCOUNTER 2024-12-23 11:00 | Outpatient (RCR) | payer MEDICARE, SELFPAY ==
--- NOTE | 2024-11-25 17:16 | OPREHPOC ---
Outpatient Therapy Plan of Care This is a Multidisciplinary Plan of Care that may contain components documented by all disciplines (PT, OT, and ST.) PT Problem 1 PT Problem #1 Knowledge Deficit PT Goal 1 Goal / Goal Update [place] with HEP Target Visit 4 PT Problem 2 PT Problem #2 Impaired Strength PT Goal 1 Goal / Goal Update 1. Patient will improve ellie hip abduction strength to 4+/5 to improve lateral stability with gait and transfers 2. Improve ellie hip flexion strength to 4+/5 to improve foot clearance with gait Target Visit 8 PT Problem 3 PT Problem #3 Impaired Gait PT Goal 1 Goal / Goal Update 1. Patient will improve 2 minute walk test to 450 feet 2. Patient will improve Tinetti score by 4 points to reduce fall risk Target Visit 8
--- NOTE | 2024-11-25 17:16 | PTOPEVAL1 ---
Assessment and note entered by Tobin Adkins, PT Evaluation Information Assessment Status Evaluation Onset 2022 Subjective Information Reports that she has had 2 falls this month. Reports that they were related to losing her balance not tripping. Denies any injury from the falls, but she has been having right shoulder pain in addition. She sleeps on her right side and wakes up often with right shoulder pain. She is right handed. She feels that her legs are fatiguing very easily and she cannot walk any form of long distance. Reports that she has freezing episodes and will occasionally use a walker in the mornings. Reported Pain Level Pain Score 1: Self Report Assessment PT Clinical Summary Patient presents with ellie hip weakness, gait instability, and postural weakness secondary to halfway Parkinson's and subacute shoulder pain. Patient will benefit form skilled therapy to address weakness and balance deficits with emphasis on dynamic activity and postural strength improvement. We emphasized hip strengthening and mobility on first visit as part of foundation of functional exercise program. Plan of Care Interventions Gait Training,Neuro Re-education,Therapeutic Activities,Therapeutic Exercise PT Services Indicated Yes Treatment Frequency and 2x/week for 8 visits Duration These treatments will address the objective and functional deficits as defined above. The patient will be advanced safely and appropriately in order for the patient to progress towards his/her prior level of function. Additional exercises will be introduced and as well as a comprehensive home exercise program upon discharge, if needed, ?to ensure carryover of functional gains achieved in the clinic. This treatment plan has been reviewed and agreement upon by the patient.
--- NOTE | 2024-12-23 16:56 | OPREHPOC ---
Outpatient Therapy Plan of Care This is a Multidisciplinary Plan of Care that may contain components documented by all disciplines (PT, OT, and ST.) PT Problem 1 PT Problem #1 Knowledge Deficit PT Goal 1 Goal / Goal Update [place] with HEP Target Visit 4 Progress Met PT Problem 2 PT Problem #2 Impaired Strength PT Goal 1 Goal / Goal Update 1. Patient will improve ellie hip abduction strength to 4+/5 to improve lateral stability with gait and transfers 2. Improve ellie hip flexion strength to 4+/5 to improve foot clearance with gait Target Visit 8 Progress Partially Met PT Problem 3 PT Problem #3 Impaired Gait PT Goal 1 Goal / Goal Update 1. Patient will improve 2 minute walk test to 450 feet 2. Patient will improve Tinetti score by 4 points to reduce fall risk Target Visit 8 Progress Met
--- NOTE | 2024-12-23 16:56 | PTOPDC ---
Assessment and note entered by Tobin Adkins, PT Evaluation Information Assessment Status Discharge Onset 2022 Subjective Information Patient reports that overall she feels she is doing better. She has not had any falls since starting therapy. She has seen improved strength and stability. Her is initiating therapy and she would like to be discharged at this time to [facility]. Reported Pain Level Pain Score 0: Self Report Assessment PT Clinical Summary Patient has made significant improvement in mobility, balance, and strength at this time. She has met majority of personal goals and has had some good days. She has not had any falls since starting therapy. Suitable for discharge at this time. Plan of Care PT Services Indicated Yes
== END 2024-12-24 08:39 | disposition home or self-care (01) ==
LOC: ANHGOSHPT 11:00
PROVIDERS: PCP Family Medicine; Visit Provider Nurse Practitioner Family
DX: G20.A1 Parkinson's disease without dyskinesia, without mention of fluctuations (principal); R29.6 Repeated falls; M25.511 Pain in right shoulder
CPT/HCPCS: 97110; 97112; 97116; 97161; 97530

== ENCOUNTER 2025-03-22 12:18 | Inpatient (IN) | payer MEDICARE, SELFPAY ==
[2025-03-22] VITALS (19 sets, daily range): BP systolic 125–151; BP diastolic 51–80; PULSE 79–104; RESP 14–24; TEMP 36.4–36.8; O2SAT 91–100
--- NOTE | ~2025-03-22 | CT_ITS ---
EXAMINATION: CT hip RT wo con COMPARISON: None HISTORY: hip fracture TECHNIQUE: Axial images were obtained without IV contrast. Sagittal, coronal reconstruction images were obtained from the axial views. CT scan performed using dose optimization techniques including the following automated exposure control; adjustment of mA and/or kV; use of iterative reconstruction technique. Automatic exposure control was used to reduce radiation dose. Permanent radiation dose record is archived to PACS. FINDINGS: There are minimal degenerative changes visualized lumbar spine, sacroiliac joint and acetabular femoral joint. There is a nondisplaced fracture of the proximal right femoral neck. No dislocation. Small joint effusion. The remaining visualized soft tissues are unremarkable. IMPRESSION: Right femoral neck fracture Reviewed, dictated and finalized at location P. ARY SCIENCE INSTRUCTOR IMPRESSION: Right femoral neck fracture
--- NOTE | ~2025-03-22 | XR_ITS ---
EXAMINATION: XR hip RT 1V, 03/22/2025 14:05 FIBREGLASS LAMINATOR HISTORY: Need X-Table Lateral COMPARISON: No comparisons available. Findings: Nondisplaced right proximal femoral neck fracture. Moderate degenerative changes. Soft tissues unremarkable. Impression: Right femoral neck fracture Reviewed, dictated and finalized at location P. EGLASS LAMINATOR Impression: Right femoral neck fracture
--- NOTE | ~2025-03-22 | XR_ITS ---
Examination: XR hip RT 2V w AP pelvis Clinical History: fall; R hip pain Comparison: CT abdomen pelvis 01/11/2022 Technique: 2 views right hip with AP pelvis Findings/impression: 1. Right femoral neck fracture. 2. No acute pelvic fracture. Reviewed, dictated and finalized at location R. RACT PROJECT MANAGER
--- NOTE | ~2025-03-22 | CT_ITS ---
EXAMINATION: CT brain wo con, 03/22/2025 13:20 STORY READER HISTORY: head injury COMPARISON: No comparisons available. Technique: Axial images obtained of the brain without contrast. One or more of the following dose reduction techniques were used: automated exposure control, adjustment of the mA and/or kV according to patient size, use of iterative reconstruction technique. Findings: No acute infarct or hemorrhage, the brain stimulator leads are noted, artifact limits evaluation. There is no midline shift or mass effect. No extra-axial fluid collections. Mastoid air cells unremarkable. Sinuses and orbits unremarkable. No acute fracture. No significant facial or scalp soft tissue swelling evident. No radiopaque foreign body is seen. Impression: No acute infarct or hemorrhage Reviewed, dictated and finalized at location P. Y READER Impression: No acute infarct or hemorrhage
--- NOTE | ~2025-03-22 | XR_ITS ---
EXAMINATION: XR hip RT 2V w AP pelvis DATE: 03/23/2025 20:03 INDICATION: Postop arthroplasty of right hip TECHNIQUE: AP, crosstable lateral views were obtained. COMPARISON: Preoperative x-ray dated 03/22/2025 FINDINGS: Postoperative changes of total hip arthroplasty in good alignment. No acute bony lesions. IMPRESSION: 1. Normal alignment at the total hip arthroplasty device at the right hip. Reviewed, dictated and finalized at location T. NCIAL AID DIRECTOR
--- NOTE | ~2025-03-22 | XR_ITS ---
Examination: XR chest 1V portable Clinical History: pre-op Comparison: 01/11/2022 Technique: Portable AP Findings: Collected generator overlying right hemithorax. Heart size normal. Lungs clear. No acute bony abnormality. IMPRESSION: 1. No acute cardiopulmonary findings given portable technique. Reviewed, dictated and finalized at location R. CAD ELECTRICAL DESIGNER
--- NOTE | 2025-03-22 13:00 | ECG_ITS ---
Test Date: 2025-03-22 14:14:46 Measurements Intervals [place] Rate: 76 P: 28 OR: 301 QRS: -71 QRSD: 85 T: 63 QT: 385 QTc: 435 Interpretive Statements SINUS RHYTHM LEFT AXIS DEVIATION BASELINE ARTIFACT- I, II, III, AVR, AVL, AVF, V1-V6 BORDERLINE ECG No previous ECG available for comparison Electronically Signed On 03-22-2025 19:32:58 COMPUTER SYSTEM SPECIALIST by Jerome Villarreal D.O.
--- OUTSIDE RECORDS SUMMARY | 2025-03-22 13:00 | XMS_ITS | Encounter Summary ---
Author Organization [facility] Address 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 Gender Identity Not on file Sexual Orientation [...] AM CDT Narrative 07/24/2007 5:15 PM CDT [address] [address] Admit Date: 07/23/2007 AMI RIVERA Sex: F Admit Prov: MEAGAN JACOBS Date: 1945 Primary Care Prov: SOTERO BARAJAS CMRN: [id number] Room: ARIEL N: [id number] IMAGING SERVICES Ordering Prov: MEAGAN JACOBS Accession Number: [id number] Interpretation BILATERAL SCREENING DIGITAL MAMMOGRAMS WITH COMPUTER [...] AMK Procedure Note Madhavi Eli - 07/24/[address] [address] Admit Date: 07/23/2007 NICOLEAMI Sex: F Admit Prov: MEAGAN JACOBS Date: 1945 Primary Care Prov: SOTERO BARAJAS CMRN: [id number] Room: ARIEL N: [id number] IMAGING SERVICES Ordering Prov: MEAGAN JACOBS Nicanor [...] ELI 07/24/2007 17:15 Transcribed: 07/24/2007 12:03 AMK Meagan Jacobs Jr., MD MAMMO ORDERABLES Final Res ult documented in this encounter Visit Diagnoses Diagnosis Other screening mammogram documented in this encounter Care Teams Bareback Rider Relationship Specialty Start Date End Date Sotero Barajas MD [address] [place] [address] PCP - General Family Practice 09/27/10 documented as of this encounter
--- OUTSIDE RECORDS SUMMARY | 2025-03-22 13:00 | XMS_ITS | Encounter Summary ---
Author Organization [facility] Address [address] [place] [address] Care Team Providers Care Catering Truck Driver Name Role Phone Sotero Ross MD Primary Care Provider [phone] Encounter Details Date Type Department Care Team (Latest Contact Info) Description 06/18/2007 Outpatient Historical HIS [facility] ADELAIDA Cho Jr., Meagan Vick MD NO ADDRESS ON FILE Other Screening Mammogram Social History Tobacco Use Types Packs/Day Years Used Date Smoking Tobacco: Never Assessed Comments Unknown Sex and Gender Information Value Date Recorded Sex Assigned at Not on file Legal Sex Female 2:40 AM VISUAL C DEVELOPER Gender Identity Not on file Sexual Orientation Not on file documented as of this encounter Plan of Treatment Not on file documented as of this encounter Visit Diagnoses Diagnosis Other screening mammogram documented in this encounter Care Teams Catering Truck Driver Relationship Specialty Start Date End Date Sotero Ross MD [address] [place] [phone] PCP - General Family Practice 09/27/10 documented as of this encounter
--- OUTSIDE RECORDS SUMMARY | 2025-03-22 13:00 | XMS_ITS | Encounter Summary ---
Author Organization [facility] Address [address] [place] [address] Care Team Providers Care Revenue Field Auditor Name Role Phone Sotero Ross MD Primary Care Provider [phone] Encounter Details Date Type Department Care Team (Latest Contact Info) Description 02/22/2004 Outpatient Historical HIS [facility] ADELAIDA Cho Jr., Meagan Vick MD NO ADDRESS ON FILE SCREENING MAMM-MAILG NEOPL-OTHER (Primary Dx) Social History Tobacco Use Types Packs/Day Years Used Date Smoking Tobacco: Never Assessed Comments Unknown Sex and Gender Information Value Date Recorded Sex Assigned at Not on file Legal Sex Female 2:40 AM CASING RUNNER Gender Identity Not on file Sexual Orientation Not on file documented as of this encounter Plan of Treatment Not on file documented as of this encounter Visit Diagnoses Diagnosis Other screening mammogram- Primary documented in this encounter Care Teams Revenue Field Auditor Relationship Specialty Start Date End Date Sotero Ross MD [address] [place] [address] PCP - General Family Practice 09/27/10 documented as of this encounter
--- OUTSIDE RECORDS SUMMARY | 2025-03-22 13:00 | XMS_ITS | Encounter Summary ---
Author Organization [facility] Address [address] [facility] [place] [address] Care Team Providers Care Balance Weigher Name Role Phone Erich Mclain MD Primary Care Provider Encounter Details Date Type Department Care Team (Late Contact Info) Description 12/09/2024 Lab Requisition [facility] [address] [facility] [place] [address] Giulia Escalante DO [address] [facility] ([place], [place]) [address] [place] [address] Social History Tobacco Use Types Packs/Day Years Used Date Smoking Tobacco: Never Smokeless Tobacco: Never Comments Unknown Sex and Gender Information Value Date Recorded Sex Assigned at Not on file Legal Sex Female 10:01 AM ACUTE CARE PHYSICAL THERAPIST Gender Identity Not on file Sexual Orientation Not on file documented as of this encounter Plan of Treatment Upcoming Encounters Date Type Department Care Team (Late st Contact Info) Description 08/19/2025 9:00 AM CDT Office Visit [facility] - Neurology [address] [facility], [place] [phone] Mart Khanna APRN-CNP [address] [facility] ([place], [place]) [address]L [place] [phone] documented as of this encounter Procedures Procedure Name Priority Date/Time Associated Diagnosis Comments DERMATOPATHOLOGY Routine 12/09/2024 10:3 5 AM CDT documented in this encounter Results * DERMATOPATHOLOGY (12/09/2024 10:35 AM CDT) Case Report Dermatopathology Report Case: [id number] Authorizing Provider: Giulia Escalante DO Collected: 12/09/2024 10:35 AM Ordering Location: [facility] - Received: 12/10/2024 08:06 AM DermPath Lab Pathologist: Ana Easley MD Specimen: Skin, right upper back 5:21 PM CDT DERMATOPATHOLOGY LABORATORY Final Diagnosis Specimen A. SKIN, right upper back: INTRADERMAL MELANOCYTIC NEVUS (D22.5) 5:21 PM CDT DERMATOPATHOLOGY LABORATORY at 1721 CDT Clinical History Nevus; R/O Atypia 5:21 PM CDT DERMATOPATHOLOGY LABORATORY Gross Description Specimen A: Received is one formalin filled container labeled with the patient's name and designated right upper back. The specimen consists of a shave biopsy measuring 5x5x1 mm. Jar 0. 5:21 PM CDT DERMATOPATHOLOGY LABORATORY Microscopic Description Specimen A. SKIN, right upper back: There are nests of cytologically bland melanocytes within the dermis that mature with depth. 5:21 PM CDT DERMATOPATHOLOGY LABORATORY Disclaimer An external and internal positive and negative controls are appropriate for the histochemical, immunohistochemical and immunofluorescence stain(s) in this case (if any), except where stated explicitly. The performance characteristics of the stain(s) cited in this report were developed and its performance characteristic determined by the Dermatopathology Laboratory at [facility], directed by Dr. Grayson Shepherd. These tests need not be, and therefore are not, approved by the [place] Food and Drug Administration. The tests are used for clinical purposes. Billing Codes Specimen Charges Stain Charges 79286 1 5:21 PM CDT DERMATOPATHOLOGY LABORATORY Embedded Images 5:21 PM CDT DERMATOPATHOLOGY LABORATORY Pathology/Cytolo gy TISSUE SPECIMEN FROM SKIN / Unknown 12/09/2024 10:35 AM CDT 12/10/2024 8:06 AM CDT us Giulia Escalante DO LAB - PATHOLOGY/CYTOLOGY ORDERABLES Final Result DERMATOPATHOLOGY LABORATORY [facility] - Department of Dermatology [facility] Medicine [address] [place] [address], [address] Floor [address] [phone] documented in this encounter Visit Diagnoses Not on filedocumented in this encounter Care Teams Balance Weigher Relationship Specialty Start Date End Date Erich Mclain MD [address] [place] [address] PCP - General 04/28/22 documented as of this encounter
--- OUTSIDE RECORDS SUMMARY | 2025-03-22 13:00 | XMS_ITS | Clinical Summary ---
Author Organization [facility] Address [address] [place] [address] Phone Care Team Providers Care Training Generalist Name Role Phone Sotero Ross MD Primary Care Provider [phone] Family History Medical History Relation Name Comments Breast Cancer Neg Hx Ovarian Cancer Neg Hx Social History Tobacco Use Types Packs/Day Years Used Date Smoking Tobacco: Never Assessed Comments Unknown Sex and Gender Information Value Date Recorded Sex Assigned at Not on file Legal Sex Female 2:40 AM ELECTROCARDIOGRAPH TECHNICIAN Gender Identity Not on file Sexual Orientation [...] 1-dose 75+ series) 2021 INFLUENZA VACCINE (#1) 2024 Insurance MEDICARE PART A AND B turboBOTZ O OPEN ACCESS [facility] Address: [facility] [id number] [place] [address] Care Teams Training Generalist Relationship Specialty Start Date End Date Sotero Ross MD [address] [place] [address] PCP - General Family Practice 09/27/10
--- OUTSIDE RECORDS SUMMARY | 2025-03-22 13:00 | XMS_ITS | Clinical Summary ---
Author Organization [facility] Address [address] [place] [address] Care Team Providers Care Advertising Analyst Name Role Phone Erich Mclain MD Primary Care Provider Source Comments [facility],non-owned Affiliates and Associated Physician Practices is [facility] organization consisting of ambulatory clinics and hospital sitesin [place], [place], [place] and [place]. This disclosure is being madepursuant to the Care Everywhere program and may not contain all information available regarding this patient. Last updated 18.[facility] Allergies No known active allergies Medications * This document contains information received from the source organization and may not represent a complete record from that organization. * Be aware that medications may not be up to date on this document. Alwaysverify current medications with the patient. simvastatin (Zocor) 20 MG tablet Take 1 (one) tablet by mouth 04/13/20 22 Active rasagiline (Azilect) 1 MG tablet Take 1 (one) tablet by mouth 04/13/20 22 Active meloxicam (Mobic) 15 MG tablet Take 1 (one) tablet by mouth as needed Active ammonium lactate (Lac-Hydrin) 12 % lotion APPLY 3 APPLICATIONS TOPICALLY TO THE AFFECTED AREA EVERY DAY NEEDED 05/09/19 23 Active Tdap, tetanus-diphth eria-acell pertussis, (Boostrix) 5-2.5-18.5 LF-MCG/0.5 (7y+) injection Boostrix Tdap 2.5 Lf unit-8 mcg-5 Lf/0.5 mL intramuscular syringe Active pantoprazole EC (Protonix) 40 MG tablet Take 1 (one) tablet by mouth every morning 06/20/19 23 Active polyethylene glycol 3350 (Miralax) 17 g packet Take 17 (seventeen) g by mouth once daily as needed for Constipation 14 packet 07/24/19 23 Active Additional Information Patient not taking.Reported on 02/18/2025 cyanocobalamin (Vitamin B-12) injection 02/08/20 23 Active escitalopram (Lexapro) 5 MG tablet Take 1 (one) tablet by mouth once daily 12/31/19 24 Active carbidopa-levo dopa (Sinemet) 25-100 MG tabletIndicati ons:Parkinson' s Disease Take 2 (two) tablets by mouth 6 times daily while awake Reasons: Parkinson's Disease 1500 tablet 3 08/19/19 25 Active carbidopa-levo dopa CR (Sinemet CR) 25-100 MG tabletIndicati ons:Parkinson' s Disease Take 1 (one) tablet by mouth once daily Reasons: Parkinson's Disease 90 tablet 5 02/28/20 25 Active carbidopa-levo dopa CR (Sinemet CR) 25-100 MG tabletIndicati ons:Parkinson' s Disease Take 1 (one) tablet by mouth once daily Reasons: Parkinson's Disease 90 tablet 5 02/17/20 25 025 Discontin ued(Reord er) Active Problems Problem Noted Date Diagnosed Date Pain in left foot 05/20/2023 08/15/2023 S/P deep brain stimulator placement 08/10/2022 Porokeratosis 05/09/2022 Arthritis 01/31/2017 Hypercholesterolemia 01/31/2017 Parkinson's disease 01/31/2017 Encounters Date Type Department Care Team Description 02/27/2025 Refill [facility] [address] [place] [phone] Mart Khanna APRN-CNP MEDICATION REFILL 02/18/2025 10:30 AM GREEN HOUSE MANAGER Office Visit [facility] - Neurology [address] [place] [phone] Mart Khanna APRN-CNP Parkinson's disease with dyskinesia and fluctuating manifestations (HCC) (Primary Dx) 02/18/2025 Travel 02/16/2025 Refill [facility] - Neurology [address] [place] [phone] Mart Khanna APRN-CNP MEDICATION REFILL from Last 3 Months Social History Tobacco Use Types Packs/Day Years Used Date Smoking Tobacco: Never Smokeless Tobacco: Never Tobacco Cessation:Counseling Given: Not Answered Comments Unknown Sex and Gender Information Value Date Recorded Sex Assigned at Not on file Legal Sex Female 10:01 AM GREEN HOUSE MANAGER Gender Identity Not on file Sexual Orientation Not on file Last Filed Vital Signs Vital Sign Reading Time Taken Comments Blood Pressure 131/70 02/18/2025 10:26 AM GREEN HOUSE MANAGER Pulse 81 02/18/2025 10:26 AM GREEN HOUSE MANAGER Temperature 36.1 C (97 F) 02/18/2024 1:33 PM GREEN HOUSE MANAGER Respiratory Rate 16 07/23/2022 11:40 AM CDT Oxygen Saturation 98% 02/18/2025 10:26 AM GREEN HOUSE MANAGER Inhaled Oxygen Concentration - - Weight 54 kg (119 lb) 02/18/2025 10:26 AM GREEN HOUSE MANAGER Height 162.6 cm (5' 4) 08/18/2024 9:54 AM CDT Body Mass Index 20.43 08/18/2024 9:54 AM CDT Plan of Treatment Upcoming Encounters Date Type Department Care Team (Late st Contact Info) Description 08/19/2025 9:00 AM CDT Office Visit [facility] - Neurology [address] [place] [phone] Mart Khanna APRN-CNP [address] [place] [address] [place] [address] Health Maintenance Due Date Last Done Comments BONE DENSITY TESTING 1945 HEPATITIS C SCREENING 09/27/1964 DTAP/TDAP/TD VACCINES (1 - Tdap) 1965 PNEUMOCOCCAL VACCINE 50+ (1 of 1 - PCV) 1996 ZOSTER VACCINE (1 of 2) 1996 Respiratory Syncytial Virus (RSV) Vaccine Pt: or over 60 yrs (1 - 1-dose 75+ series) 2021 DEPRESSION SCREENING 04/16/2024 MEDICARE AWV CALENDAR YEAR 2024 COVID-19 VACCINE (3 2024-2 6 season) 2024 06/14/2020, 05/17/2020 INFLUENZA VACCINE (#1) 2024 HEPATITIS B VACCINE Aged Out No longe r eligible based on patient's age to complete this topic HIB VACCINE Aged Out No longer eligi ble based on patient's age to complete this topic HPV VACCINE Aged Out No longer eligi ble based on patient's age to complete this topic MENINGOCOCCAL (Group B) VACCINE SHARED DECISION-MAKING Aged Out No longer eligible based on patient's age to complete this topic MENINGOCOCCAL GROUPS A/C/Y/W VACCINE Aged Out No longer eligible b ased on patient's age to complete this topic Medical Devices Implanted Type Area Plant Ecologist Device Identifier Shelf Expiration Date Model / Serial / Lot Right Implant Vercise Cartesia 45 Cm 8 Contact Dbs Directional Lead Kit Implanted:Qty: 1 on 07/21/2022 by Sai Bradford MD at [facility] Right: Brain DB-2202-45 / [id number] / Left Implant Vercise 45cm 8 Contact Dbs Directional Lead Kit Implanted:Qty: 1 on 07/21/2022 by Sai Bradford MD at [facility] Left: Brain 05/23/2024 DB-2202-45 / [id number] / Right Implant Vercise Genus R16 Implantable Pulse Generator Kit Implanted:Qty: 1 on 07/21/2022 by Romel Perez MD at [facility] Right: Chest 06/13/2024 DB-1216 / [id number] / [id number] 55cm, 2x8 Contact Implanted:Qty: 1 on 07/21/2022 by Romel Perez MD at [facility] Right: Chest 02/02/2024 DB-3128-55 B / [id number] / Kit Nrstm Dbs Bur Hl Plg Strl Implanted:Qty: 1 on 07/21/2022 by Romel Perez MD at [facility] Left: Brain Longfan Mediamed [id number] / / [id number] Kit Nrstm Dbs Bur Hl Plg Strl Implanted:Qty: 1 on 07/21/2022 by Romel Perez MD at [facility] Right: Brain tomoguides [employer] Scimed [id number] / / Explanted Type Area Plant Ecologist Device Identifier Shelf Expiration Date Model / Serial / Lot Nrstm Impl Bst Sci Or Cbl Pshbtn 8 Cntct Explanted:Qty: 1 on 07/21/2022 at [facility] Left: Brain [employer] Neuro [id number] / / Procedures Procedure Name Priority Date/Time Associated Diagnosis Comments MO ANALYZE NEUROSTIM NO PROG Routine 02/18/2025 2:17 PM GREEN HOUSE MANAGER Parkinson's disease with dyskinesia and fluctuating manifestations (HCC) from Last 3 Months Results * MO ANALYZE NEUROSTIM NO PROG (02/18/2025 2:17 PM GREEN HOUSE MANAGER) Narrative Mart Khanna APRN-CNP - 02/18/2025 2:17 PM GREEN HOUSE MANAGER Mart Khanna APRN-CNP 02/18/2025 2:17 PM Please see office notes for documentation Thanks Mart TRIANA PROCEDURE/MINOR SURGICAL ORDERABLES Final Result from Last 3 Months Insurance AETNA AETNA MEDICARE ADV Advance Directives Documents on File Type Date Recorded Patient Palliative Care Nurse Practitioner Expl anation Adv Directive/Living Will/POA 07/24/2022 11:33 AM * Full Code (Latest Code Status on File) Date Activated Date Inactivated Comments 07/21/2022 3:58 PM 07/23/2022 4:47 PM Care Teams Advertising Analyst Relationship Specialty Start Date End Date Erich Mclain MD [address] [place] [address] PCP - General 04/28/22
--- OUTSIDE RECORDS SUMMARY | 2025-03-22 13:00 | XMS_ITS | Encounter Summary ---
Author Organization [facility] Address [address] [place] [address] Care Team Providers Care Steam Fitter Helper Name Role Phone Sotero Barajas MD Primary Care Provider Encounter Details Date Type Department Care Team (Latest Contact Info) Description 08/11/2008 Outpatient Historical HIS [facility] ADELAIDA Jacobs Jr., Meagan Vick MD NO ADDRESS ON FILE Other Screening Mammogram Social History Tobacco Use Types Packs/Day Years Used Date Smoking Tobacco: Never Assessed Comments Unknown Sex and Gender Information Value Date Recorded Sex Assigned at Not on file Legal Sex Female 2:40 AM PIPE BENDER Gender Identity Not on file Sexual Orientation [...] AM CDT Narrative 08/11/2008 4:47 PM CDT [address] [place], [place] [address] Admit Date: 08/11/2008 AMI RIVERA Sex: F Admit Prov: MEAGAN JACOBS Date: 1945 Primary Care Prov: SOTERO BARAJAS CMRN: [id number] Room: KEYONNAYimi N: [id number] IMAGING SERVICES Ordering Prov: MAEGAN JACOBS Nicanor Accession Number: [id number] Interpretation BILATERAL SCREENING DIGITAL MAMMOGRAMS WITH COMPUTER [...] AMK Procedure Note Madhavi Eli - 08/11/[address] [address] Admit Date: 08/11/2008 AMI RIVERA Sex: F Admit Prov: MEAGAN JACOBS Date: 1945 Primary Care Prov: SOTERO BARAJAS CMRN: [id number] Room: ARIEL N: [id number] IMAGING SERVICES Ordering Prov: MEAGAN JACOBS Nicanor [...] mammogram documented in this encounter Care Teams Steam Fitter Helper Relationship Specialty Start Date End Date Sotero Barajas MD [address] [place] [phone] PCP - General Family Practice 09/27/10 documented as of this encounter
--- OUTSIDE RECORDS SUMMARY | 2025-03-22 13:00 | XMS_ITS | Encounter Summary ---
Author Organization [facility] Address [facility] [place] [address] Care Team Providers Care Lactation Specialist Name Role Phone Erich Mclain MD Primary Care Provider Reason for Visit * Reason Onset Date Comments MEDICATION REFILL 04/06/2023 Encounter Details Date Type Department Care Team (Late st Contact Info) Description 04/06/2023 Refill [facility] - Neurology [address] [place] [phone] Lawrence Paredes MD MEDICATION REFILL Social History Tobacco Use Types Packs/Day Years Used Date Smoking Tobacco: Never Smokeless Tobacco: Never Comments Unknown Sex and Gender Information Value Date Recorded Sex Assigned at Not on file Legal Sex Female 10:01 AM GAMBLING DEALER Gender Identity Not on file Sexual Orientation Not on file documented as of this encounter Plan of Treatment Upcoming Encounters Date Type Department Care Team (Late st Contact Info) Description 08/19/2025 9:00 AM CDT Office Visit [facility] - Neurology [address] [place] [phone] Mart Khanna APRN-RHINA [address] [place] [address] [place] [address] documented as of this encounter Visit Diagnoses Not on filedocumented in this encounter Care Teams Lactation Specialist Relationship Specialty Start Date End Date Erich Mclain MD [address] [place] [address] PCP - General 04/28/22 documented as of this encounter
--- NOTE | 2025-03-22 13:13 | ED_ITS ---
HPI - General Adult General Chief complaint: Extremity Injury, Lower Stated complaint: R. hip pain after fall x2 hours ago Time Seen by Provider: 03/22/25 12:48 History of Present Illness HPI narrative: 79-year-old female presents emergency department for evaluation after having a mechanical fall. Patient states she was walking and lost her balance and tripped and landed on her right side. Patient did strike her head but denies loss consciousness. Patient does complain of some pain of her right forearm but is not suspect a fracture. Patient's primary source of pain is her right hip. Patient does have a deep brain stimulator in place that was placed since this had worsening hospital for Parkinson's disease. Patient is not on any blood thinners. Related Data Home Medications ?Medication ?Instructions ?Recorded ?Confirmed ?Last Taken ?Type cholecalciferol (vitamin D3) 50 50 mcg PO DAILY 11/03/24 06/18/22 History mcg (2,000 unit) capsule cranberry fruit 400 mg capsule 400 mg PO DAILY 0 11/03/24 06/18/22 History carbidopa 25 mg-levodopa 100 mg 1 tablet PO QID 11/03/24 Unknown History tablet acetaminophen 500 mg capsule 1,000 mg PO BID PRN pain 11/03/24 11/20/24 Unknown History denosumab 60 mg/mL subcutaneous 60 mg subcut [id number] 11/03/24 11/20/24 Unknown History syringe (Prolia) Allergies Allergy/AdvReac Type Severity Reaction Status Date / Time No Known Allergies Allergy Verified 03/22/25 12:19 Review of Systems 2 Review of Systems: All systems reviewed & are unremarkable except as noted in HPI and below PMFSH Past Medical History Medical History Dysphagia Epigastric pain COVID Vitamin B12 deficiency Parkinson disease Unspecified osteoarthritis, unspecified site Dyslipidemia Vitamin D deficiency Surgical History Surgical History Status post deep brain stimulator placement (~07/2022) History of bunionectomy of both great toes 2009 and 2010 Family History Family History Other Family history of coronary artery disease Social History Social History Smoking status: Never smoker Second hand tobacco smoke exposure: No Alcohol intake: never Substance use: never Substance use type: does not use Lack of Transportation: No Lack of Food: Never True Current Housing: I Have Housing Concerned About Future Housing: No Difficulty Paying Gas/Electric Bills: No Difficulty Paying for Meds: No Currently Unemployed: No Education: Master's Degree or Higher Difficulty w/ Childcare or Family Care: No Living arrangements: with family Gender identity (if verbalized by the patient): Female Spiritual care concerns: No Exam 2 Narrative: APPEARANCE: Well appearing, no pain, no distress, well-nourished. HEAD: normocephalic, atraumatic. EYES: PERRLA/EOMI, conjunctivae clear. NOSE: Normal no drainage EARS:TMS clear with good light reflex. THROAT: Pharynx clear, no exudate. NECK: Supple. No adenopathy, no masses. RESPIRATORY: Airway patent, respirations nonlabored. Clear to auscultation bilaterally, no rales, rhonchi, wheezing. CARDIOVASCULAR: Regular rate and rhythm without murmurs rubs or gallops. ABDOMINAL: Soft, nontender, nondistended, normal bowel sounds MUSCULOSKELETAL: Right hip tenderness to palpation with decreased range of motion NEURO: Alert. Cranial nerves II through XII intact. Good gait. Good coordination SKIN: Warm, dry. Normal Color Course Vital Signs Vital signs: Vital Signs Temperature 97.6 F 03/22/25 12:34 Pulse Rate 81 03/22/25 12:34 Respiratory Rate 16 03/22/25 12:34 Blood Pressure 131/64 03/22/25 12:34 Pulse Oximetry 96 03/22/25 12:34 Temperature 97.6 F 03/22/25 12:34 Pulse Rate 96 03/22/25 16:01 Respiratory Rate 24 H 03/22/25 16:01 Blood Pressure 148/72 H 03/22/25 16:01 Pulse Oximetry 98 03/22/25 16:01 [facility] Narrative Medical decision making narrative: 71-year-old female presents emergency department for evaluation for right hip pain after having mechanical ground level fall. Patient does strike her head but denies loss consciousness. Patient does have a right femoral neck fracture. Orthopedics was consulted. Patient will be admitted to the hospitalist. Differential Diagnosis Differential Diagnosis: Hip fracture, hip dislocation Lab Data MDM Lab Attestation statement: I personally reviewed the patient's lab results. 03/22/25 13:39 03/22/25 14:23 Labs: Lab Results 03/22/25 03/22/25 Range/Units 13:39 14:23 WBC 8.5 (4.5-10.0) K/mm3 RBC 4.72 (4.2-5.4) M/mm3 Hgb 14.2 (12.0-15.0) g/dL Hct 43.1 (37.0-47.0) % MCV 91.3 (80-100) fl MCH 30.1 (26-34) pg MCHC 32.9 (32-36) g/dl RDW 12.2 (11.5-14.5) % Plt Count 201 (150-375) k/mm3 MPV 9.6 (7.4-10.4) fl Immature Gran % (Auto) 0.8 H (0-0.5) % Neut % (Auto) 81.0 H (45.5-73.1) % Lymph % (Auto) 11.3 L (18.3-44.2) % Blair % (Auto) 5.6 (2.6-8.5) % Eos % (Auto) 0.7 (0-4.4) % Baso % (Auto) 0.6 (0.2-1.2) % Lymph # (Auto) 0.96 (0.9-3.2) K/mm3 Blair # (Auto) 0.5 (0.1-0.6) K/mm3 Eos # (Auto) 0.1 (0-0.3) K/mm3 Baso # (Auto) 0.1 (0.0-0.1) K/mm3 Abs Immat Gran (auto) 0.07 H (0.00-0.031) K/mm3 Absolute Neuts (auto) 6.9 H (1.3-6.7) K/mm3 Absolute Nucleated RBC 0.000 (0.0-0.012) K/mm3 Nucleated RBC % 0.0 (0.0-0.2) % PT 13.7 (11.1-14.7) Seconds INR 1.0 APTT 29.8 (22.3-36.8) Seconds Sodium 136 L (137-145) mmol/L Potassium 3.8 (3.4-5.0) mmol/L Chloride 103 (98-107) mmol/L Carbon Dioxide 31 H (22-30) mmol/L Anion Gap 2 L (4-12) mmol/L BUN 18 H (7-17) mg/dL Creatinine 0.57 L (0.7-1.0) mg/dL Estim Creat Clear Calc Not Reportable Estimated GFR > 60 (59 - ) Glucose 89 (65-110) mg/dL Calcium 8.8 (8.4-10.2) mg/dL Total Bilirubin 0.8 (0.2-1.3) mg/dL AST 20 (14-36) U/L ALT < 6 L (6-35) U/L Alkaline Phosphatase 65 (38-126) U/L Total Protein 6.8 (6.3-8.2) g/dL Albumin 4.0 (3.5-5.1) g/dL Blood Type O Positive Antibody Screen Negative Imaging Data Attestation: I personally reviewed and interpreted this imaging study as follows: My impression: Chest x-ray: No acute cardiopulmonary abnormality Right hip x-ray: Femoral neck fracture Radiologist's impression: ITS Impressions Chest X-Ray 03/22/25 13:36 IMPRESSION: 1. No acute cardiopulmonary findings given portable technique. Hip CT 03/22/25 14:11 IMPRESSION: Right femoral neck fracture Hip X-Ray 03/22/25 14:12 Impression: Right femoral neck fracture Head CT 03/22/25 14:16 Impression: No acute infarct or hemorrhage Discharge Plan Discharge Clinical Impression: Closed fracture of neck of right femur Patient Disposition: Still a Patient Condition: Stable
[2025-03-22 13:46] LABS: Hematocrit 43.1 % (37.0-47.0); Hemoglobin 14.2 g/dL (12.0-15.0); Immature Granulocyte Percent A 0.8 % (0-0.5); Lymphocytes Absolute Auto 0.96 K/mm3 (0.9-3.2); Mean Corpuscular HGB Conc 32.9 g/dl (32-36); Mean Corpuscular Hemoglobin 30.1 pg (26-34); Mean Corpuscular Volume 91.3 fl (80-100); Nucleated Red Blood Cells Absolute Auto 0.000 K/mm3 (0.0-0.012); Nucleated Red Blood Cells Perc 0.0 % (0.0-0.2); Platelet Count Result 201 k/mm3 (150-375); Red Blood Count 4.72 M/mm3 (4.2-5.4); White Blood Count 8.5 K/mm3 (4.5-10.0)
[2025-03-22 13:56] LABS: INR 1.0; Prothrombin Time 13.7 Seconds (11.1-14.7)
[2025-03-22 13:57] LABS: Partial Thromboplastin Time 29.8 Seconds (22.3-36.8)
[2025-03-22 14:45] LABS: Albumin Level 4.0 g/dL (3.5-5.1); Alkaline Phosphatase 65 U/L (38-126); Anion Gap 2 mmol/L (4-12); Aspartate Amino Transferase 20 U/L (14-36); Bilirubin,Total 0.8 mg/dL (0.2-1.3); Blood Urea Nitrogen 18 mg/dL (7-17); Calcium 8.8 mg/dL (8.4-10.2); Carbon Dioxide 31 mmol/L (22-30); Chloride 103 mmol/L (98-107); Estimated Glomerular Filt Rate > 60; Glucose 89 mg/dL (65-110); Potassium 3.8 mmol/L (3.4-5.0); Sodium 136 mmol/L (137-145); Total Protein 6.8 g/dL (6.3-8.2)
[2025-03-22 14:46] LABS: Alanine Aminotransferase < 6 U/L (6-35)
[2025-03-22] MEDS: MORPHINE SULFATE (*CRX) 4 MG/ML INJ 2 MG IV PUSH ×2 (14:49→18:11)
--- NOTE | 2025-03-22 16:59 | PM.IMHP2 ---
H&P: HPI History of Present Illness Date/Time: 03/22/25 16:59 Chief Complaint: Fall, Hip Pain Narrative: 79 y/o F with PMH of Parkinson's treated with deep brain stimulator placement in 2022, dyslipidemia, vitamin-D deficiency presents here with a fall and subsequent right hip pain. The patient presents from home on 03/22 for further evaluation of right hip pain S/P ground level fall. She reports today she was walking when she lost her balance causing her to fall. She then landed onto her right side and did hit her head. However she did not have loss of consciousness. Post fall she reports some minor pain to her right forearm but no deformity, however she is primarily having pain in her right hip. She denies any other pain or injury. She is not currently on anticoagulation. She does have a history of Parkinson's that has previously been treated with a deep brain stimulator that was placed in 2022. Initial VS at presentation: 97.6? F, HR 81, R 16, 131/64, and 96% on RA. ED workup showed: No leukocytosis, no anemia, normal coags, creatinine 0.57 and GFR >60. Hip/pelvic XR showed a right femoral neck fracture, no acute pelvic fracture. CXR showed no acute cardiopulmonary findings. Hip CT redemonstrated a right femoral neck fracture. Head CT showed no acute infarct or hemorrhage. Review of Systems Review of Systems: All systems reviewed & are unremarkable except as noted in HPI and below [facility] Past Medical History Medical History Depression Osteoporosis Dysphagia History of esophageal spasms, 2021 COVID Vitamin B12 deficiency Parkinson disease Unspecified osteoarthritis, unspecified site Dyslipidemia Vitamin D deficiency Surgical History Surgical History Status post deep brain stimulator placement (~07/2022) History of bunionectomy of both great toes 2009 and 2010 Family History Family History Other Family history of coronary artery disease Social History Social History Smoking status: Never smoker Second hand tobacco smoke exposure: No Alcohol intake: never Substance use: never Substance use type: does not use Lack of Transportation: No Lack of Food: Never True Current Housing: I Have Housing Concerned About Future Housing: No Difficulty Paying Gas/Electric Bills: No Difficulty Paying for Meds: No Currently Unemployed: No Education: Master's Degree or Higher Difficulty w/ Childcare or Family Care: No Living arrangements: with family Gender identity (if verbalized by the patient): Female Spiritual care concerns: No Meds Home Medications and Allergies Home Medications ?Medication ?Instructions ?Recorded ?Confirmed ?Type cholecalciferol (vitamin D3) 50 50 mcg PO DAILY 12/16/19 03/22/25 History mcg (2,000 unit) capsule cranberry fruit 400 mg capsule 400 mg PO DAILY 12/16/19 03/22/25 History carbidopa ER 25 mg-levodopa 100 mg 1 tablet PO HS #90 tabs 06/20/22 03/22/25 Rx tablet,extended release carbidopa 25 mg-levodopa 100 mg 1 tablet PO .Q2.5H 01/11/24 03/22/25 History tablet cyanocobalamin (vitamin B-12) 1,000 mcg sublingual .every other 01/11/24 03/22/25 Rx 1,000 mcg sublingual tablet day #45 tabs escitalopram oxalate 10 mg tablet 10 mg PO DAILY #90 tabs 10/06/24 03/22/25 Rx acetaminophen 500 mg capsule 1,000 mg PO BID PRN pain 11/03/24 03/22/25 History denosumab 60 mg/mL subcutaneous 60 mg subcut [id number] 11/03/24 03/22/25 History syringe (Prolia) simvastatin 20 mg tablet 20 mg PO QHS #90 tabs 01/06/25 03/22/25 Rx Allergies Allergy/AdvReac Type Severity Reaction Status Date / Time No Known Allergies Allergy Verified 03/22/25 17:55 Vital Signs Vital Signs - 24 hr 03/22/25 12:34 03/22/25 13:38 03/22/25 14:41 Temperature 97.6 F Pulse Rate 81 79 94 Respiratory Rate 16 18 18 Blood Pressure 131/64 Pulse Oximetry 96 96 94 03/22/25 14:45 03/22/25 14:50 03/22/25 14:51 Temperature Pulse Rate 88 93 100 Respiratory Rate 16 22 H 21 H Blood Pressure 151/71 H Pulse Oximetry 94 95 93 03/22/25 15:00 03/22/25 15:01 03/22/25 15:15 Temperature Pulse Rate 92 104 H 95 Respiratory Rate 18 15 18 Blood Pressure 151/79 H Pulse Oximetry 91 92 03/22/25 15:30 03/22/25 15:31 03/22/25 15:45 Temperature Pulse Rate 91 90 97 Respiratory Rate 17 15 15 Blood Pressure 140/80 Pulse Oximetry 100 95 97 03/22/25 15:46 03/22/25 16:00 03/22/25 16:01 Temperature Pulse Rate 95 95 96 Respiratory Rate 18 19 24 H Blood Pressure 148/58 H 148/72 H Pulse Oximetry 97 97 98 Exam Const: General: comfortable and no acute distress Other: , female, nontoxic appearance HENMT: Face/Nose/Sinus: Normal nares present Mouth: Yes moist mucous membranes Eyes: General: appearance normal, both eyes and all related structures Sclera: sclerae normal Pupils: Equal, round and reactive pupils present EOM: EOMs intact bilaterally Resp: Effort & Inspection: normal respiratory effort Auscultation: clear to auscultation bilaterally Cardio: Rate: regular rate Rhythm: regular rhythm Other: S1-S2 present without murmur, rub, ectopy GI: Other: Abdomen soft, nondistended, nontender. Normoactive bowel sounds in all quadrants. Skin: General skin exam: normal color and no rashes or lesions noted Wounds: no wounds Neuro: Speech: normal speech Sensory Exam: normal sensation Other: Generalized weakness, no focal deficits. Mass like features. Extrem: General: normal to inspection Psych: Mental Status: mental status grossly normal Other: Good insight and judgment, pleasant. Results Labs Labs: Short CBC 03/22/25 Range/Units 13:39 WBC 8.5 (4.5-10.0) K/mm3 Hgb 14.2 (12.0-15.0) g/dL Hct 43.1 (37.0-47.0) % Plt Count 201 (150-375) k/mm3 BMP 03/22/25 14:23 Sodium 136 L Potassium 3.8 Chloride 103 Carbon Dioxide 31 H BUN 18 H Creatinine 0.57 L Glucose 89 Calcium 8.8 Liver Function 03/22/25 Range/Units 14:23 Total Bilirubin 0.8 (0.2-1.3) mg/dL AST 20 (14-36) U/L ALT < 6 L (6-35) U/L Alkaline Phosphatase 65 (38-126) U/L Albumin 4.0 (3.5-5.1) g/dL Quality VTE Prophylaxis VTE prophylaxis: mechanical ordered Assessment and Plan Assessment and plan (1) Closed fracture of neck of right femur: Qualifiers: Encounter type: initial encounter Qualified Code(s): S72.001A - Fracture of unspecified part of neck of right femur, initial encounter for closed fracture Code(s): S72.001A - Fracture of unspecified part of neck of right femur, initial encounter for closed fracture Status: Acute Assessment and Plan: Patient here after a ground level mechanical fall with head strike, no loss of consciousness. Trauma workup included a hip/pelvic XR, CXR, hip CT, and head CT. Imaging remarkable for a nondisplaced right femoral neck fracture. Patient admitted for surgical management via orthopedic team. - orthopedics consulted - bed rest - NPO midnight - analgesics p.r.n.: Tylenol, Weaver, morphine - start docusate - Zofran p.r.n. - will need PT/OT postsurgery, may need care coordination for acute rehab services - check UA pre-op (2) Parkinson disease: Qualifiers: Dyskinesia presence: unspecified whether dyskinesia Fluctuating manifestations: unspecified whether manifestations fluctuate Qualified Code(s): G20.A1 - Parkinson's disease without dyskinesia, without mention of fluctuations Code(s): G20 - Parkinson's disease Status: Chronic Assessment and Plan: History of Parkinson's Disease. Previously treated with a deep brain stimulator placement in 2022. Follows with Neurology at [facility]. - continue carbidopa levodopa, takes Q2.5H (3) Dyslipidemia: Code(s): E78.5 - Hyperlipidemia, unspecified Status: Chronic Assessment and Plan: - continue home medication: Simvastatin 20 mg HS (4) Depression: Qualifiers: Depression Type: reactive depression Qualified Code(s): F32.9 - Major depressive disorder, single episode, unspecified Code(s): F32.A - Depression, unspecified Status: Chronic Assessment and Plan: Chronic, stable. - continue home medication: Lexapro 10 mg daily Plan Diet: Regular, NPO midnight GI Prophylaxis: N/a DVT Prophylaxis: SCDs IV fluids: None Lines/Tubes: pIV Code Status: Full code Prior Studies I have reviewed the following patient records and this information was taken into consideration when formulating the assessment and plan.: previous labs, previous ER visits, previous hospitalizations and previous clinic visits Time Spent with Patient Time with patient: less than 45 minutes Hospitalist MIPS Advance Care Plan I have confirmed that the patient's Advanced Care Plan is present, code status is documented, or surrogate decision maker is listed in patient medical record.: Yes Medication Reconciliation I have utilized all available resources to obtain, update and review the patients current medications (includes all prescriptions, OTC, herbals, cannabis, and nutritional supplements).: Yes
--- NOTE | 2025-03-22 17:04 | WPCEDHO ---
ED Hand Off Checklist All vitals saved:y IV Site documented:y All med administrations documented:y Triage Note Triage Note Pt to the ED for evaluation of R 03/22/25 13:06 hip pain after a fall 2 hours RECORD RETRIEVAL SPECIALIST . Pt has hx of Parkinson's Disease. Allergies No Known Allergies Allergy (Verified 03/22/25 12:19) Family History (Last Reviewed 11/03/24 @ 10:24 by Bernadine Shelton, TERE) Other Family history of coronary artery disease Administered/Completed Medications Discontinued Medications Morphine Sulfate (Morphine Sulfate (*Crx) 4 Mg/Ml Inj) 2 mg IV PUSH ONCE STA Stop: 03/22/25 14:46 Last Admin: 03/22/25 14:49 Dose: 2 mg Documented By: LEV Interventions/Assessments IV / Saline Lock, Insert Start: 03/22/25 12:19 Freq: Status: Active Protocol: Document 03/22/25 13:39 CMM (Rec: 03/22/25 13:40 CMM [id number]) IV Assessment Peripheral Access Left Forearm IV Catheter Access Initiated IV Insertion Date 03/22/25 IV Insertion Time 13:39 Catheter Gauge 20 IV Insertion 1 Attempts IV Site Assessment WNL IV Care and WNL Maintenance Last Vital Signs Temperature 97.6 F 03/22/25 12:34 Pulse Rate 96 03/22/25 16:01 Respiratory Rate 24 H 03/22/25 16:01 Pulse Oximetry 98 03/22/25 16:01 Blood Pressure 148/72 H 03/22/25 16:01 Blood Pressure Mean 92 03/22/25 16:01 Last Result - Abnormals Only Immature Gran % (Auto) 0.8 % (0-0.5) H 03/22/25 13:39 Neut % (Auto) 81.0 % (45.5-73.1) H 03/22/25 13:39 Lymph % (Auto) 11.3 % (18.3-44.2) L 03/22/25 13:39 Abs Immat Gran (auto) 0.07 K/mm3 (0.00-0.031) H 03/22/25 13:39 Absolute Neuts (auto) 6.9 K/mm3 (1.3-6.7) H 03/22/25 13:39 Sodium 136 mmol/L (137-145) L 03/22/25 14:23 Carbon Dioxide 31 mmol/L (22-30) H 03/22/25 14:23 Anion Gap 2 mmol/L (4-12) L 03/22/25 14:23 BUN 18 mg/dL (7-17) H 03/22/25 14:23 Creatinine 0.57 mg/dL (0.7-1.0) L 03/22/25 14:23 ALT < 6 U/L (6-35) L 03/22/25 14:23 Most Recent Suicide Severity Rating Suicide Severity Rating NO RISK INDICATED 03/22/25 13:06
--- NOTE | 2025-03-22 17:49 | ADMGEN ---
This patient, Ami Rivera, was admitted to Medical Room 340-01. Patient/family oriented to hospital policies and general routines including ID bracelet, bed and alarms, visiting hours, pain management, procedures, bathroom and other care routines, personal items, smoking policy, room service/diet, and visiting hours. Information on how to activate the Rapid Response Team has been discussed. Patient/Family are encouraged to report perceived risks to care and to ask questions if they do not understand what they are told or what they should do.
[2025-03-22 18:45] LABS: Add Urine Microscopic? YES; Appearance Urine Cloudy (Clear); Glucose Urine UA Negative (Negative); Leukocyte Esterase Ur 2+ LEU/UL (Negative); Nitrate Urine Negative (Negative); Non Pathogenic Casts 0-2; Specific Grav Ur 1.013 (1.001-1.035)
--- NOTE | 2025-03-22 18:55 | PC.NURSE ---
Pt states that she takes her carbidopa/levodopa 1 tablet every 2.5 hrs during the day & takes an extended release tablet at bedtime. The patient says she starts taking the first dose at 0500 & takes one dose eight times a day. Pharmacist says this is different from the external medication history. But, this is the way the patient takes this med at home. Pharmacist asked me to put this in as a pharmacy communication order.
[2025-03-22] MEDS: CARBIDOPA/LEVODOPA 25/100 MG TABLET 1 TABLET PO ×2 (20:32→22:25)
[2025-03-22] MEDS: SIMVASTATIN 20 MG TABLET PO (20:32)
[2025-03-22] MEDS: DOCUSATE SODIUM 100 MG CAPSULE PO (20:32)
[2025-03-22] MEDS: CARBIDOPA/LEVODOPA 25/100 MG CR TABLET 1 TABLET PO (22:25)
[2025-03-23] VITALS (13 sets, daily range): BP systolic 132–150; BP diastolic 54–88; PULSE 78–98; RESP 14–20; TEMP 36.3–37.2; O2SAT 90–98
[2025-03-23] MEDS: MORPHINE SULFATE (*CRX) 4 MG/ML INJ 2 MG IV PUSH ×2 (04:27→09:38)
[2025-03-23] MEDS: CARBIDOPA/LEVODOPA 25/100 MG TABLET 1 TABLET PO ×5 (04:28→21:32)
[2025-03-23 05:30] LABS: Hematocrit 40.7 % (37.0-47.0); Hemoglobin 13.4 g/dL (12.0-15.0); Immature Granulocyte Percent A 0.5 % (0-0.5); Lymphocytes Absolute Auto 0.56 K/mm3 (0.9-3.2); Mean Corpuscular HGB Conc 32.9 g/dl (32-36); Mean Corpuscular Hemoglobin 30.0 pg (26-34); Mean Corpuscular Volume 91.3 fl (80-100); Nucleated Red Blood Cells Absolute Auto 0.000 K/mm3 (0.0-0.012); Nucleated Red Blood Cells Perc 0.0 % (0.0-0.2); Platelet Count Result 168 k/mm3 (150-375); Red Blood Count 4.46 M/mm3 (4.2-5.4); White Blood Count 10.7 K/mm3 (4.5-10.0)
[2025-03-23 05:50] LABS: Anion Gap 3 mmol/L (4-12); Blood Urea Nitrogen 19 mg/dL (7-17); Calcium 8.4 mg/dL (8.4-10.2); Carbon Dioxide 30 mmol/L (22-30); Chloride 101 mmol/L (98-107); Estimated Glomerular Filt Rate > 60; Glucose 102 mg/dL (65-110); Potassium 3.9 mmol/L (3.4-5.0); Sodium 134 mmol/L (137-145)
[2025-03-23] MEDS: ESCITALOPRAM OXALATE 10 MG TABLET PO (09:38)
--- NOTE | 2025-03-23 09:48 | P.PNIM_ITS ---
Assessment and Plan Assessment and Plan (1) Closed fracture of neck of right femur: Qualifiers: Encounter type: initial encounter Qualified Code(s): S72.001A - Fracture of unspecified part of neck of right femur, initial encounter for c losed fracture Code(s): S72.001A - Fracture of unspecified part of neck of right femur, initial encounter for closed fracture Status: Acute Assessment and Plan: Patient here after a ground level mechanical fall with head strike, no loss of consciousness. Trauma workup included a hip/pelvic XR, CXR, hip CT, and head CT. Imaging remarkable for a nondisplaced right femoral neck fracture. Patient admitted for surgical management via orthopedic team. - orthopedics consulted. Awaiting their recommendations. - bed rest Continue NPO - analgesics p.r.n.: Tylenol, Galliano, morphine (2) Parkinson disease: Qualifiers: Dyskinesia presence: unspecified whether dyskinesia Fluctuating manifestations: unspecified whether manifestations fluctuate Qualified Code(s): G20.A1 - Parkinson's disease without dyskinesia, without mention of fluctuations Code(s): G20 - Parkinson's disease Status: Chronic Assessment and Plan: History of Parkinson's Disease. Previously treated with a deep brain stimulator placement in 2022. Follows with Neurology at [facility]. - continue carbidopa levodopa, takes Q2.5H (3) Dyslipidemia: Code(s): E78.5 - Hyperlipidemia, unspecified Status: Chronic Assessment and Plan: - continue home medication: Simvastatin 20 mg HS (4) Depression: Qualifiers: Depression Type: reactive depression Qualified Code(s): F32.9 - Major depressive disorder, single episode, unspecified Code(s): F32.A - Depression, unspecified Status: Chronic Assessment and Plan: Chronic, stable. - continue home medication: Lexapro 10 mg daily Plan Dirty UA urine culture pending. Start ceftriaxone Diet: Regular, NPO midnight GI Prophylaxis: N/a DVT Prophylaxis: SCDs IV fluids: None Lines/Tubes: pIV Code Status: Full code Subjective Date/time seen: 03/23/25 09:48 Interval history: No overnight events. Complains of right hip pain. Denies chest pain or shortness of breath. Review of Systems Review of Systems: All systems reviewed & are unremarkable except as noted in HPI and below Exam Narrative: APPEARANCE: Well appearing, no pain, no distress, well-nourished. HEAD: normocephalic, atraumatic. EYES: PERRLA/EOMI, conjunctivae clear. NECK: Supple. No adenopathy, no masses. RESPIRATORY: Airway patent, respirations nonlabored. Clear to auscultation bilaterally, no rales, rhonchi, wheezing. CARDIOVASCULAR: Regular rate and rhythm without murmurs rubs or gallops. ABDOMINAL: Soft, nontender, nondistended, normal bowel sounds MUSCULOSKELETAL: Right hip tenderness to palpation with decreased range of motion NEURO: Alert. Cranial nerves II through XII intact. Good gait. Good coordination SKIN: Warm, dry. Normal Color Objective Data Vital Signs Vital Signs: Vital Signs - 24 hr 03/22/25 12:34 03/22/25 13:38 03/22/25 14:41 Temperature 97.6 F Pulse Rate 81 79 94 Respiratory Rate 16 18 18 Blood Pressure 131/64 Pulse Oximetry 96 96 94 Oxygen Delivery 03/22/25 14:45 03/22/25 14:50 03/22/25 14:51 Temperature Pulse Rate 88 93 100 Respiratory Rate 16 22 H 21 H Blood Pressure 151/71 H Pulse Oximetry 94 95 93 Oxygen Delivery 03/22/25 15:00 03/22/25 15:01 03/22/25 15:15 Temperature Pulse Rate 92 104 H 95 Respiratory Rate 18 15 18 Blood Pressure 151/79 H Pulse Oximetry 91 92 Oxygen Delivery 03/22/25 15:30 03/22/25 15:31 03/22/25 15:45 Temperature Pulse Rate 91 90 97 Respiratory Rate 17 15 15 Blood Pressure 140/80 Pulse Oximetry 100 95 97 Oxygen Delivery 03/22/25 15:46 03/22/25 16:00 03/22/25 16:01 Temperature Pulse Rate 95 95 96 Respiratory Rate 18 19 24 H Blood Pressure 148/58 H 148/72 H Pulse Oximetry 97 97 98 Oxygen Delivery 03/22/25 17:05 03/22/25 17:41 03/22/25 20:00 Temperature 98.3 F Pulse Rate 94 96 96 Respiratory Rate 18 14 14 Blood Pressure 132/72 147/71 H Pulse Oximetry 98 91 91 Oxygen Delivery Room Air 03/22/25 22:00 03/23/25 06:00 Temperature 98.1 F 98.6 F Pulse Rate 89 90 Respiratory Rate 18 16 Blood Pressure 125/51 L 138/73 Pulse Oximetry 98 93 Oxygen Delivery Intake/Output Intake/Output: Intake & Output 03/20/25 03/21/25 03/22/25 03/23/25 23:59 23:59 23:59 23:59 Intake Total 0 Output Total 800 Balance 0 -800 Meds/Results Medications: Active Medications Generic Name Dose Route Start Last Admin Trade Name Freq PRN Reason Stop Dose Admin Acetaminophen 1,000 mg 03/22/25 17:51 Acetaminophen 500 Mg Tablet PO BID PRN PAIN RATED 1-3 Hydrocodone Bitart/Acetaminophen 1 tab 03/22/25 17:54 Hydrocodone/Acetaminophen (*Crx) 5-325 Mg Tablet PO Q4H PRN Pain Rated 4-6 Carbidopa/Levodopa 1 tablet 03/23/25 05:00 03/23/25 09:38 Carbidopa/Levodopa 25/100 Mg Tablet PO 1 tablet DAILY@05,0730,1000 RAPHAEL Administration Carbidopa/Levodopa 1 tablet 03/23/25 12:30 Carbidopa/Levodopa 25/100 Mg Tablet PO DAILY@1230,15,1730 RAPHAEL Carbidopa/Levodopa 1 tablet 03/22/25 20:00 03/22/25 22:25 Carbidopa/Levodopa 25/100 Mg Tablet PO 1 tablet DAILY@20,2230 RAPHAEL Administration Carbidopa/Levodopa 1 tablet 03/22/25 23:00 03/22/25 22:25 Carbidopa/Levodopa 25/100 Mg Cr Tablet PO 1 tablet DAILY@2300 RAPHAEL Administration Docusate Sodium 100 mg 03/22/25 21:00 03/23/25 07:43 Docusate Sodium 100 Mg Capsule PO Not Given Q12HR [facility] Escitalopram Oxalate 10 mg 03/23/25 09:00 03/23/25 09:38 Escitalopram Oxalate 10 Mg Tablet PO 10 mg DAILY RAPHAEL Administration Morphine Sulfate 2 mg 03/22/25 14:32 03/23/25 09:38 Morphine Sulfate (*Crx) 4 Mg/Ml Inj IV PUSH 2 mg Q2H PRN Administration Pain Rated 7-10 Per P&T, 1 each 03/22/25 17:59 Nonformulary XX 03/23/25 17:58 Nutritional PRN PRN Supplements And PROTOCOL Vitamins Will Be Held Until Discharge : Simvastatin 20 mg 03/22/25 21:00 03/22/25 20:32 Simvastatin 20 Mg Tablet PO 20 mg QHS RAPHAEL Administration Vitamin D 50 mcg 03/23/25 09:00 03/23/25 07:43 Cholecalciferol (Vitamin D3) 25 Mcg (1,000 Units) Tablet PO Not Given DAILY [facility] Radiology Results: ITS Impressions Chest X-Ray 03/22/25 13:36 IMPRESSION: 1. No acute cardiopulmonary findings given portable technique. Hip CT 03/22/25 14:11 IMPRESSION: Right femoral neck fracture Hip X-Ray 03/22/25 14:12 Impression: Right femoral neck fracture Head CT 03/22/25 14:16 Impression: No acute infarct or hemorrhage Labs Labs: Laboratory Results - last 24 hr 03/22/25 03/22/25 03/22/25 13:39 14:23 18:17 WBC 8.5 RBC 4.72 Hgb 14.2 Hct 43.1 MCV 91.3 MCH 30.1 MCHC 32.9 RDW 12.2 Plt Count 201 MPV 9.6 Immature Gran % (Auto) 0.8 H Neut % (Auto) 81.0 H Lymph % (Auto) 11.3 L [place] % (Auto) 5.6 Eos % (Auto) 0.7 Baso % (Auto) 0.6 Lymph # (Auto) 0.96 [place] # (Auto) 0.5 Eos # (Auto) 0.1 Baso # (Auto) 0.1 Abs Immat Gran (auto) 0.07 H Absolute Neuts (auto) 6.9 H Absolute Nucleated RBC 0.000 Nucleated RBC % 0.0 PT 13.7 INR 1.0 APTT 29.8 Sodium 136 L Potassium 3.8 Chloride 103 Carbon Dioxide 31 H Anion Gap 2 L BUN 18 H Creatinine 0.57 L Estim Creat Clear Calc Not Reportable Estimated GFR > 60 Glucose 89 Calcium 8.8 Total Bilirubin 0.8 AST 20 ALT < 6 L Alkaline Phosphatase 65 Total Protein 6.8 Albumin 4.0 Urine Color Yellow Urine Appearance Cloudy H Urine pH 8.0 Ur Specific [place] 1.013 Urine Protein Negative Urine Glucose (UA) Negative Urine Ketones Negative Ur Blood (Man) Negative Urine Nitrate Negative Urine Bilirubin Negative Urine Urobilinogen 1.0 Leukocyte Esterase Rfl 2+ H Urine RBC 0-2 Urine WBC 51-100 H Ur Squamous Epith Cells None seen Urine Bacteria None seen Urine Casts 0-2 Blood Type O Positive Antibody Screen Negative 03/23/25 05:20 WBC 10.7 H RBC 4.46 Hgb 13.4 Hct 40.7 MCV 91.3 MCH 30.0 MCHC 32.9 RDW 12.1 Plt Count 168 MPV 9.6 Immature Gran % (Auto) 0.5 Neut % (Auto) 86.2 H Lymph % (Auto) 5.2 L [place] % (Auto) 5.6 Eos % (Auto) 2.0 Baso % (Auto) 0.5 Lymph # (Auto) 0.56 L [place] # (Auto) 0.6 Eos # (Auto) 0.2 Baso # (Auto) 0.1 Abs Immat Gran (auto) 0.05 H Absolute Neuts (auto) 9.3 H Absolute Nucleated RBC 0.000 Nucleated RBC % 0.0 PT INR APTT Sodium 134 L Potassium 3.9 Chloride 101 Carbon Dioxide 30 Anion Gap 3 L BUN 19 H Creatinine 0.58 L Estim Creat Clear Calc Not Reportable Estimated GFR > 60 Glucose 102 Calcium 8.4 Total Bilirubin AST ALT Alkaline Phosphatase Total Protein Albumin Urine Color Urine Appearance Urine pH Ur Specific [place] Urine Protein Urine Glucose (UA) Urine Ketones Ur Blood (Man) Urine Nitrate Urine Bilirubin Urine Urobilinogen Leukocyte Esterase Rfl Urine RBC Urine WBC Ur Squamous Epith Cells Urine Bacteria Urine Casts Blood Type Antibody Screen
[2025-03-23] MEDS: cefTRIAXone 1 GM in SODIUM CHLORIDE 0.9% IV 50 ML 100 ML IVPB (11:14)
--- NOTE | 2025-03-23 15:26 | PC.NURSE ---
Patient off floor to pre op via bed. Report given to Ashok RUTLEDGE. No patient complaints at this time. Family at bedside.
[2025-03-23] MEDS: LACTATED RINGERS 1,000 ML 30 ML IV CONT (15:49)
--- NOTE | 2025-03-23 17:24 | WPDANESEPPF ---
Anes - Initial Pre Proc Eval Procedure: Operation Date: 03/23/25 16:00 Proposed Procedures p Right Bipolar - Jackson Frank MD Date/Time: 03/23/25 17:24 Surgeon: Romario Jones MD Pre Op Diagnosis: Right Femoral Neck Fracture Patient Data Age: 79 Gender: F Height: Weight: 51.7 kg Last Vital Signs Temp 37.2 C 03/23/25 15:40 Pulse 93 03/23/25 15:40 Resp 16 03/23/25 15:40 BP 150/82 H 03/23/25 15:40 Pulse Ox 95 03/23/25 15:40 O2 Del Method Room Air 03/23/25 15:40 Allergies Allergy/AdvReac Type Severity Reaction Status Date / Time No Known Allergies Allergy Verified 03/23/25 15:51 Home Medications ?Medication ?Instructions ?Recorded ?Confirmed ?Type cholecalciferol (vitamin D3) 50 50 mcg PO DAILY 12/16/19 03/22/25 History mcg (2,000 unit) capsule cranberry fruit 400 mg capsule 400 mg PO DAILY 12/16/19 03/22/25 History carbidopa ER 25 mg-levodopa 100 mg 1 tablet PO HS #90 tabs 06/20/22 03/22/25 Rx tablet,extended release carbidopa 25 mg-levodopa 100 mg 1 tablet PO .Q2.5H 01/11/24 03/22/25 History tablet cyanocobalamin (vitamin B-12) 1,000 mcg sublingual .every other 01/11/24 03/22/25 Rx 1,000 mcg sublingual tablet day #45 tabs escitalopram oxalate 10 mg tablet 10 mg PO DAILY #90 tabs 10/06/24 03/22/25 Rx acetaminophen 500 mg capsule 1,000 mg PO BID PRN pain 11/03/24 03/22/25 History denosumab 60 mg/mL subcutaneous 60 mg subcut [id number] 11/03/24 03/22/25 History syringe (Prolia) simvastatin 20 mg tablet 20 mg PO QHS #90 tabs 01/06/25 03/22/25 Rx Laboratory Tests 03/22/25 03/23/25 18:17 05:20 WBC 10.7 H K/mm3 (4.5-10.0) RBC 4.46 M/mm3 (4.2-5.4) Hgb 13.4 g/dL (12.0-15.0) Hct 40.7 % (37.0-47.0) MCV 91.3 fl (80-100) MCH 30.0 pg (26-34) MCHC 32.9 g/dl (32-36) RDW 12.1 % (11.5-14.5) Plt Count 168 k/mm3 (150-375) MPV 9.6 fl (7.4-10.4) Immature Gran % (Auto) 0.5 % (0-0.5) Neut % (Auto) 86.2 H % (45.5-73.1) Lymph % (Auto) 5.2 L % (18.3-44.2) [place] % (Auto) 5.6 % (2.6-8.5) Eos % (Auto) 2.0 % (0-4.4) Baso % (Auto) 0.5 % (0.2-1.2) Lymph # (Auto) 0.56 L K/mm3 (0.9-3.2) [place] # (Auto) 0.6 K/mm3 (0.1-0.6) Eos # (Auto) 0.2 K/mm3 (0-0.3) Baso # (Auto) 0.1 K/mm3 (0.0-0.1) Abs Immat Gran (auto) 0.05 H K/mm3 (0.00-0.031) Absolute Neuts (auto) 9.3 H K/mm3 (1.3-6.7) Absolute Nucleated RBC 0.000 K/mm3 (0.0-0.012) Nucleated RBC % 0.0 % (0.0-0.2) Sodium 134 L mmol/L (137-145) Potassium 3.9 mmol/L (3.4-5.0) Chloride 101 mmol/L (98-107) Carbon Dioxide 30 mmol/L (22-30) Anion Gap 3 L mmol/L (4-12) BUN 19 H mg/dL (7-17) Creatinine 0.58 L mg/dL (0.7-1.0) Estim Creat Clear Calc Not Reportable Estimated GFR > 60 (59 - ) Glucose 102 mg/dL (65-110) Calcium 8.4 mg/dL (8.4-10.2) Urine Color Yellow (Yellow) Urine Appearance Cloudy H (Clear) Urine pH 8.0 (5.0-9.0) Ur Specific [place] 1.013 (1.001-1.035) Urine Protein Negative mg/dL (Negative) Urine Glucose (UA) Negative mg/dL (Negative) Urine Ketones Negative mg/dL (Negative) Ur Blood (Man) Negative (Negative) Urine Nitrate Negative (Negative) Urine Bilirubin Negative (Negative) Urine Urobilinogen 1.0 mg/dL (<2.0) Leukocyte Esterase Rfl 2+ H AILEEN/UL (Negative) Urine RBC 0-2 /hpf (0-2) Urine WBC 51-100 H /hpf (0-3) Ur Squamous Epith Cells None seen /hpf (Few) Urine Bacteria None seen /hpf Urine Casts 0-2 Patient hx anesthesia problems: none Family hx anesthesia problems: none Results Review: All pre-operative results and documents have been reviewed as part of the pre-operative evaluation. [facility] Past Medical History Medical History Depression Osteoporosis Dysphagia History of esophageal spasms, 2021 COVID Vitamin B12 deficiency Parkinson disease Unspecified osteoarthritis, unspecified site Dyslipidemia Vitamin D deficiency Surgical History Surgical History Status post deep brain stimulator placement (~07/2022) History of bunionectomy of both great toes 2009 and 2010 Family History Family History Other Family history of coronary artery disease Social History Social History Smoking status: Never smoker Second hand tobacco smoke exposure: No Alcohol intake: never Substance use: never Substance use type: does not use Lack of Transportation: No Lack of Food: Never True Current Housing: I Have Housing Concerned About Future Housing: No Difficulty Paying Gas/Electric Bills: No Difficulty Paying for Meds: No Currently Unemployed: No Education: Master's Degree or Higher Difficulty w/ Childcare or Family Care: No Living arrangements: with family Gender identity (if verbalized by the patient): Female Spiritual care concerns: No Anes - Eval Final PreProcedure Day of Procedure 03/23/25 17:24 Patient weight: normal Heart: regular rate and rhythm Lungs: clear to auscultation Airway: Mallampati scale class III Neurological: alert and oriented Last oral intake: >/= 8 hours ASA classification: III Emergent: no Anesthetic plan: proceed Anesthesia type and monitoring: general ETT and standard monitoring Results Review: All pre-operative results and documents have been reviewed as part of the pre-operative evaluation. Informed Consent: The patient's anesthetic plan and its attendant risks and benefits were discussed with the patient/family/POA. Questions were solicited and answers provided to the satisfaction of the patient/family/POA.
--- NOTE | 2025-03-23 17:35 | SUR.PREOP ---
Patient and family updated on delay.
--- NOTE | 2025-03-23 17:52 | PM.CNOR ---
Assessment and Plan Assessment and plan (1) Displaced fracture of right femoral neck: Code(s): S72.001A - Fracture of unspecified part of neck of right femur, initial encounter for closed fracture Status: Acute Plan 79 yr old female with history of Parkinsons with Right Hip Femoral neck fracture after a fall at home yesterday. No other injuries. Normally ambulates without walker. Lives at home with . She lost her balance and fell on to Right hip. Recommendation is for a Right Partial Hip Replacement. Risks include but are not limited to: infection, dislocations, nerve injury, bleeding, limb length discrepancy, DVT. They agree to proceed with surgery. History of Present Illness HPI Consult date: 03/23/25 Chief complaint: Right Femoral Neck Fracture Narrative: 79 yr old female with history of Parkinsons with Right Hip Femoral neck fracture after a fall at home yesterday. No other injuries. Normally ambulates without walker. Lives at home with . She lost her balance and fell on to Right hip. [facility] Past Medical History Medical History Depression Osteoporosis Dysphagia History of esophageal spasms, 2021 COVID Vitamin B12 deficiency Parkinson disease Unspecified osteoarthritis, unspecified site Dyslipidemia Vitamin D deficiency Surgical History Surgical History Status post deep brain stimulator placement (~07/2022) History of bunionectomy of both great toes 2009 and 2010 Family History Family History Other Family history of coronary artery disease Social History Social History Smoking status: Never smoker Second hand tobacco smoke exposure: No Alcohol intake: never Substance use: never Substance use type: does not use Lack of Transportation: No Lack of Food: Never True Current Housing: I Have Housing Concerned About Future Housing: No Difficulty Paying Gas/Electric Bills: No Difficulty Paying for Meds: No Currently Unemployed: No Education: Master's Degree or Higher Difficulty w/ Childcare or Family Care: No Living arrangements: with family Gender identity (if verbalized by the patient): Female Spiritual care concerns: No Meds Home Medications and Allergies Home Medications ?Medication ?Instructions ?Recorded ?Confirmed ?Type cholecalciferol (vitamin D3) 50 50 mcg PO DAILY 12/16/19 03/22/25 History mcg (2,000 unit) capsule cranberry fruit 400 mg capsule 400 mg PO DAILY 12/16/19 03/22/25 History carbidopa ER 25 mg-levodopa 100 mg 1 tablet PO HS #90 tabs 06/20/22 03/22/25 Rx tablet,extended release carbidopa 25 mg-levodopa 100 mg 1 tablet PO .Q2.5H 01/11/24 03/22/25 History tablet cyanocobalamin (vitamin B-12) 1,000 mcg sublingual .every other 01/11/24 03/22/25 Rx 1,000 mcg sublingual tablet day #45 tabs escitalopram oxalate 10 mg tablet 10 mg PO DAILY #90 tabs 10/06/24 03/22/25 Rx acetaminophen 500 mg capsule 1,000 mg PO BID PRN pain 11/03/24 03/22/25 History denosumab 60 mg/mL subcutaneous 60 mg subcut [id number] 11/03/24 03/22/25 History syringe (Prolia) simvastatin 20 mg tablet 20 mg PO QHS #90 tabs 01/06/25 03/22/25 Rx Allergies Allergy/AdvReac Type Severity Reaction Status Date / Time No Known Allergies Allergy Verified 03/23/25 15:51 Vital Signs Vital Signs - 24 hr 03/22/25 20:00 03/22/25 22:00 03/23/25 06:00 Temperature 36.7 C 37.0 C Pulse Rate 96 89 90 Respiratory Rate 14 18 16 Blood Pressure 125/51 L 138/73 Pulse Oximetry 91 98 93 Oxygen Delivery Room Air 03/23/25 09:40 03/23/25 14:00 03/23/25 15:40 Temperature 36.8 C 37.2 C Pulse Rate 95 93 Respiratory Rate 18 16 Blood Pressure 147/72 H 150/82 H Pulse Oximetry 91 95 Oxygen Delivery Room Air Room Air Exam Narrative: Right lower extremity shortened and externally rotated. No swelling, tenderness or deformity of bilateral knees or ankles. Const: General: cooperative, comfortable, no acute distress, well developed, alert and awake Nutritional Appearance: average body habitus Orientation/consciousness: oriented to person, oriented to place and oriented to time Results Labs 03/23/25 05:20 03/23/25 05:20 Labs: Abnormal lab results 03/22/25 03/23/25 Range/Units 18:17 05:20 WBC 10.7 H (4.5-10.0) K/mm3 Neut % (Auto) 86.2 H (45.5-73.1) % Lymph % (Auto) 5.2 L (18.3-44.2) % Lymph # (Auto) 0.56 L (0.9-3.2) K/mm3 Abs Immat Gran (auto) 0.05 H (0.00-0.031) K/mm3 Absolute Neuts (auto) 9.3 H (1.3-6.7) K/mm3 Sodium 134 L (137-145) mmol/L Anion Gap 3 L (4-12) mmol/L BUN 19 H (7-17) mg/dL Creatinine 0.58 L (0.7-1.0) mg/dL Urine Appearance Cloudy H (Clear) Leukocyte Esterase Rfl 2+ H (Negative) AILEEN/UL Urine WBC 51-100 H (0-3) /hpf H & H 03/22/25 03/23/25 Range/Units 13:39 05:20 Hgb 14.2 13.4 (12.0-15.0) g/dL Hct 43.1 40.7 (37.0-47.0) % Coagulation 03/22/25 Range/Units 13:39 INR 1.0 All other labs normal.
[2025-03-23] MEDS: ceFAZolin 2 GM in SODIUM CHLORIDE 0.9% IV 50 ML 100 ML IVPB (17:53)
--- NOTE | 2025-03-23 17:56 | WPDHPUPDATE1 ---
History and Physical Update Update Date/Time: 03/23/25 17:56 History and Physical has been reviewed, including an updated exam of the patient. There are NO changes in the patient's condition. Risks, benefits, and alternatives have been discussed and questions answered. Patient agrees to proceed with procedure. 79 yr old female with history of Parkinsons with Right Hip Femoral neck fracture after a fall at home yesterday. No other injuries. Normally ambulates without walker. Lives at home with . She lost her balance and fell on to Right hip. Recommendation is for a Right Partial Hip Replacement. Risks include but are not limited to: infection, dislocations, nerve injury, bleeding, limb length discrepancy, DVT. They agree to proceed with surgery.
[2025-03-23] MEDS: LIDO 1%/EPINEPHRINE 1:100,000 50 ML VIAL (18:30)
[2025-03-23] MEDS: KETOROLAC 15 MG/ML VIAL (*BKC) IV PUSH (19:01)
--- NOTE | 2025-03-23 19:47 | W.PM.PROC2 ---
Procedure Note - Detailed Date of Procedure 03/23/25 Pre-op Diagnosis Right Femoral Neck Fracture Post-op Diagnosis Same Procedure Performed Right hip open treatment hip fracture with prosthetic replacement Surgeon Jackson Frank MD Anesthesia General Indications Right hip femoral neck fracture with history Parkinson's disease Findings Right hip femoral neck fracture Description of Procedure After obtaining consent with regard to the risks benefits alternatives and complications of a right hip hemiarthroplasty and marking the patient's right hip in the holding area, patient was advised the risks benefits alternatives and complications of this procedure which include but are not limited to infection nerve and vessel injury dislocation DVT limb length discrepancy sciatic nerve injury, along with the patient's and her daughter they understood the proposed procedure and agreed to proceed. They also understand that given her history of Parkinson's disease there is a moderately higher risk for dislocation as well as additional risk for falling given her balance issues. The patient was then brought to the operating room placed in a supine position which time she underwent general anesthesia. She was then placed on the operating room table with the lateral decubitus position right side up with a axillary roll and all bony prominences were padded. The right lower extremity was then prepped and draped in the standard sterile fashion. The contralateral peroneal nerve was adequately padded. Time-out was performed to verify correct patient correct site of surgery correct procedure and to verify that indeed the patient had 2 g of Ancef IV within 1 hour of the incision time. A posterolateral incision was made dissection carried down and a Karina lying in back approach was performed. The ITB band was identified and sharply incised and then a Charnley retractor was used at this point. I then identified the short external rotators as well as the piriformis and tagged the piriformis and also did T capsulotomy and tagged the superior and inferior capsule. I then exposed the femoral head dislocated the hip and measured the head diameter at 47 mm. I then performed my neck cut at 2 cm from the lesser trochanter. I then removed the additional bone irrigated copiously and used a box osteotome to gain entrance into the femoral canal and then used a canal finer. I maintained the patient's natural anteversion of approximately 30?. I then broached up to a size 5 trialed this and noted that with the extended offset -4 neck length and the patient had an excellent stability profile with hip flexion 90? internal rotation to 80? with no evidence of subluxation. I then irrigated copiously replaced a trial implant with the appropriate size femoral stem in with the appropriate bipolar component and irrigated copiously and tested for stability and I had the exact same stability profile. I then irrigated copiously and then repaired the capsule using Ethibond suture to the posterior abscess effect of the patient's hip repaired the piriformis also to the posterior aspect of the patient's hip through 2 drill holes. I then irrigated copiously again and then I closed the ITB band using interrupted 0 Ethibond suture closed skin using 2-0 Vicryl suture and then luis. Mepilex dressing was placed in the eye of the case. Patient was then transferred to recovery room in stable condition. Implants [place] Accolate 2 127 degree neck angle with a size 5 femoral stem a 47 mm bipolar component-4 mm offset Estimated Blood Loss 150 Urine Output 300 Drains No Packing No Pathology None sent Complications No immediate complications Condition Stable Disposition PACU
--- NOTE | 2025-03-23 21:16 | PC.NURSE ---
This patient, Ami Rivera, was received from PACU on 03/23/25 at 2105.
[2025-03-23] MEDS: DOCUSATE SODIUM 100 MG CAPSULE PO (21:27)
[2025-03-23] MEDS: SIMVASTATIN 20 MG TABLET PO (21:27)
[2025-03-23] MEDS: SODIUM CHLORIDE 0.9% IV 1,000 ML 125 ML IV CONT (21:27)
[2025-03-23] MEDS: ASPIRIN 81 MG ENTERIC TABLET PO (21:27)
[2025-03-23] MEDS: CARBIDOPA/LEVODOPA 25/100 MG CR TABLET 1 TABLET PO (22:46)
[2025-03-24 00:30] VITALS: BP 157/85; PULSE 93; RESP 16; TEMP 36.1; O2SAT 94
[2025-03-24] MEDS: ceFAZolin 2 GM in SODIUM CHLORIDE 0.9% IV 50 ML 100 ML IVPB ×3 (01:34→17:31)
[2025-03-24 05:00] VITALS: BP 148/90; PULSE 95; RESP 16; TEMP 36.4; O2SAT 94
[2025-03-24 06:03] LABS: Hematocrit 39.7 % (37.0-47.0); Hemoglobin 13.0 g/dL (12.0-15.0); Immature Granulocyte Percent A 0.6 % (0-0.5); Lymphocytes Absolute Auto 0.28 K/mm3 (0.9-3.2); Mean Corpuscular HGB Conc 32.7 g/dl (32-36); Mean Corpuscular Hemoglobin 30.1 pg (26-34); Mean Corpuscular Volume 91.9 fl (80-100); Nucleated Red Blood Cells Absolute Auto 0.000 K/mm3 (0.0-0.012); Nucleated Red Blood Cells Perc 0.0 % (0.0-0.2); Platelet Count Result 161 k/mm3 (150-375); Red Blood Count 4.32 M/mm3 (4.2-5.4); White Blood Count 12.6 K/mm3 (4.5-10.0)
[2025-03-24 06:24] LABS: Chloride 104 mmol/L (98-107); Potassium 3.7 mmol/L (3.4-5.0); Sodium 134 mmol/L (137-145)
[2025-03-24 06:25] LABS: Alanine Aminotransferase 7 U/L (6-35); Albumin Level 3.5 g/dL (3.5-5.1); Alkaline Phosphatase 89 U/L (38-126); Anion Gap 5 mmol/L (4-12); Aspartate Amino Transferase 23 U/L (14-36); Bilirubin,Total 1.1 mg/dL (0.2-1.3); Blood Urea Nitrogen 19 mg/dL (7-17); Calcium 7.8 mg/dL (8.4-10.2); Carbon Dioxide 25 mmol/L (22-30); Estimated Glomerular Filt Rate > 60; Glucose 134 mg/dL (65-110); Magnesium 2.0 mg/dL (1.6-2.3); Total Protein 6.6 g/dL (6.3-8.2)
[2025-03-24] MEDS: CARBIDOPA/LEVODOPA 25/100 MG TABLET 1 TABLET PO ×6 (06:28→23:23)
[2025-03-24] MEDS: ACETAMINOPHEN 500 MG TABLET PO (07:28)
--- NOTE | 2025-03-24 08:22 | P.PNIM_ITS ---
Assessment and Plan Assessment and Plan (1) Closed fracture of neck of right femur: Qualifiers: Encounter type: initial encounter Qualified Code(s): S72.001A - Fracture of unspecified part of neck of right femur, initial encounter for c losed fracture Code(s): S72.001A - Fracture of unspecified part of neck of right femur, initial encounter for closed fracture Status: Acute Assessment and Plan: Patient here after a ground level mechanical fall with head strike, no loss of consciousness. Trauma workup included a hip/pelvic XR, CXR, hip CT, and head CT. Imaging remarkable for a nondisplaced right femoral neck fracture. Patient admitted for surgical management via orthopedic team. - orthopedics consulted. Status post right hip surgery 03/23/2025 - analgesics p.r.n.: Tylenol, [place], morphine On aspirin 81 mg b.i.d. for DVT prophylaxis (2) Parkinson disease: Qualifiers: Dyskinesia presence: unspecified whether dyskinesia Fluctuating manifestations: unspecified whether manifestations fluctuate Qualified Code(s): G20.A1 - Parkinson's disease without dyskinesia, without mention of fluctuations Code(s): G20 - Parkinson's disease Status: Chronic Assessment and Plan: History of Parkinson's Disease. Previously treated with a deep brain stimulator placement in 2022. Follows with Neurology at [facility]. - continue carbidopa levodopa, takes Q2.5H (3) Dyslipidemia: Code(s): E78.5 - Hyperlipidemia, unspecified Status: Chronic Assessment and Plan: - continue home medication: Simvastatin 20 mg HS (4) Depression: Qualifiers: Depression Type: reactive depression Qualified Code(s): F32.9 - Major depressive disorder, single episode, unspecified Code(s): F32.A - Depression, unspecified Status: Chronic Assessment and Plan: Chronic, stable. - continue home medication: Lexapro 10 mg daily Plan Dirty UA urine culture pending. Continue ceftriaxone Diet: Regular, NPO midnight GI Prophylaxis: N/a DVT Prophylaxis: SCDs IV fluids: None Lines/Tubes: pIV Code Status: Full code Subjective Date/time seen: 03/24/25 08:22 Interval history: No overnight events. Underwent hip surgery yesterday. Pain control. No chest pain or shortness of breath. Review of Systems Review of Systems: All systems reviewed & are unremarkable except as noted in HPI and below Exam Narrative: APPEARANCE: Well appearing, no pain, no distress, well-nourished. HEAD: normocephalic, atraumatic. EYES: PERRLA/EOMI, conjunctivae clear. NECK: Supple. No adenopathy, no masses. RESPIRATORY: Airway patent, respirations nonlabored. Clear to auscultation bilaterally, no rales, rhonchi, wheezing. CARDIOVASCULAR: Regular rate and rhythm without murmurs rubs or gallops. ABDOMINAL: Soft, nontender, nondistended, normal bowel sounds MUSCULOSKELETAL: Right hip with dressing in place which is clean dry and intact. NEURO: Alert. Cranial nerves II through XII intact. Good gait. Good coordination SKIN: Warm, dry. Normal Color Objective Data Vital Signs Vital Signs: Vital Signs - 24 hr 03/23/25 09:40 03/23/25 14:00 03/23/25 15:40 Temperature 98.2 F 99 F Pulse Rate 95 93 Respiratory Rate 18 16 Blood Pressure 147/72 H 150/82 H Pulse Oximetry 91 95 Oxygen Delivery Room Air Room Air Oxygen Flow Rate Fraction of Inspired Oxygen 03/23/25 19:36 03/23/25 19:45 03/23/25 20:00 Temperature 98.3 F Pulse Rate 90 94 98 Respiratory Rate 20 20 Blood Pressure 138/54 L 148/69 H 132/70 Pulse Oximetry 98 98 98 Oxygen Delivery Simple Face Mask Simple Face Mask Room Air Oxygen Flow Rate 8 8 Fraction of Inspired Oxygen 03/23/25 20:15 03/23/25 20:30 03/23/25 20:45 Temperature Pulse Rate 94 98 97 Respiratory Rate 14 15 Blood Pressure 132/72 136/72 144/61 H Pulse Oximetry 98 96 98 Oxygen Delivery Room Air Room Air Room Air Oxygen Flow Rate Fraction of Inspired Oxygen 03/23/25 22:22 03/23/25 22:45 03/23/25 23:00 Temperature 98.3 F 98.2 F Pulse Rate 78 93 95 Respiratory Rate 20 16 16 Blood Pressure 146/65 H 143/69 H Pulse Oximetry 90 92 93 Oxygen Delivery Room Air Oxygen Flow Rate Fraction of Inspired Oxygen 21 03/23/25 23:30 03/24/25 00:30 03/24/25 05:00 Temperature 97.3 F L 97.0 F L 97.6 F Pulse Rate 92 93 95 Respiratory Rate 16 16 16 Blood Pressure 147/88 H 157/85 H 148/90 H Pulse Oximetry 95 94 94 Oxygen Delivery Oxygen Flow Rate Fraction of Inspired Oxygen Intake/Output Intake/Output: Intake & Output 03/21/25 03/22/25 03/23/25 03/24/25 23:59 23:59 23:59 23:59 Intake Total 0 100 1600 Output Total 1400 1400 Balance 0 -1300 200 Meds/Results Medications: Active Medications Generic Name Dose Route Start Last Admin Trade Name Freq PRN Reason Stop Dose Admin Acetaminophen 500 mg 03/23/25 19:40 03/24/25 07:28 Acetaminophen 500 Mg Tablet PO 500 mg Q6H PRN Administration Pain Rated 1-3 Hydrocodone Bitart/Acetaminophen 1 tab 03/23/25 19:40 Hydrocodone/Acetaminophen (*Crx) 5-325 Mg Tablet PO Q4H PRN Pain Rated 4-6 Hydrocodone Bitart/Acetaminophen 1 tab 03/23/25 19:40 Hydrocodone/Acetaminophen (*Crx) 10-325 Mg Tablet PO Q4H PRN Pain Rated 7-10 Al Hydrox/Mg Hydrox/Simethicone 30 ml 03/23/25 19:40 Mag Hydrox/Al Hydrox/Simeth 30 Ml Udc PO Q6H PRN Indigestion Aspirin 81 mg 03/23/25 21:00 03/23/25 21:27 Aspirin 81 Mg Enteric Tablet PO 81 mg Q12HR RAPHAEL Administration Carbidopa/Levodopa 1 tablet 03/23/25 05:00 03/24/25 06:28 Carbidopa/Levodopa 25/100 Mg Tablet PO 1 tablet DAILY@05,0730,1000 RAPHAEL Administration Carbidopa/Levodopa 1 tablet 03/23/25 12:30 03/23/25 16:29 Carbidopa/Levodopa 25/100 Mg Tablet PO Not Given DAILY@1230,15,1730 RAPHAEL Carbidopa/Levodopa 1 tablet 03/22/25 20:00 03/23/25 21:32 Carbidopa/Levodopa 25/100 Mg Tablet PO 1 tablet DAILY@20,2230 RAPHAEL Administration Carbidopa/Levodopa 1 tablet 03/22/25 23:00 03/23/25 22:46 Carbidopa/Levodopa 25/100 Mg Cr Tablet PO 1 tablet DAILY@2300 RAPHAEL Administration Docusate Sodium 100 mg 03/22/25 21:00 03/23/25 21:27 Docusate Sodium 100 Mg Capsule PO 100 mg Q12HR RAPHAEL Administration Escitalopram Oxalate 10 mg 03/23/25 09:00 03/23/25 09:38 Escitalopram Oxalate 10 Mg Tablet PO 10 mg DAILY RAPHAEL Administration Fentanyl Citrate 25 mcg 03/23/25 17:30 Fentanyl Citrate Inj (*Crx) 100 Mcg/2 Ml Vial IV PUSH Q2M PRN Pain Hydromorphone HCl 1 mg 03/23/25 19:40 Hydromorphone Hcl Inj (*Crx) 1 Mg/Ml Syr IV PUSH Q2H PRN Breakthrough Pain Rated 7-10 or NPO Hydromorphone HCl 0.5 mg 03/23/25 19:40 Hydromorphone Hcl Inj (*Crx) 1 Mg/Ml Syr IV PUSH Q2H PRN Breakthrough Pain Rated 4-6 or NPO Ceftriaxone Sodium 1 gm/ 50 mls @ 100 mls/hr 03/23/25 10:00 03/23/25 11:44 Sodium Chloride IVPB Infused Q24H RAPHAEL Infusion Lactated Ringer's 1,000 mls @ 30 mls/hr 03/23/25 15:50 03/23/25 15:49 Lr - Lactated Ringers Iv IV CONT 30 mls/hr .Q24H RAPHAEL Administration Lactated Ringer's 1,000 mls @ 30 mls/hr 03/23/25 17:30 Lr - Lactated Ringers Iv IV CONT .Q24H RAPHAEL Lactated Ringer's 1,000 mls @ 30 mls/hr 03/23/25 17:30 Lr - Lactated Ringers Iv IV CONT .Q24H RAPHAEL Cefazolin Sodium 2 gm/ Sodium 50 mls @ 100 mls/hr 03/24/25 02:00 03/24/25 02:04 Chloride IVPB 03/24/25 18:29 Infused Q8H RAPHAEL Infusion Sodium Chloride 1,000 mls @ 125 mls/hr 03/23/25 19:40 03/24/25 06:00 Normal Saline Iv IV CONT Infused .Q8H RAPHAEL Infusion Naloxone HCl 0.1 mg 03/23/25 19:40 Naloxone Hcl 0.4 Mg/Ml Vial IV PUSH Q2M PRN Opiate Reversal Ondansetron HCl 4 mg 03/23/25 17:30 Ondansetron Inj 4 Mg/2 Ml Vial IV PUSH ONCE PRN Nausea Polyethylene Glycol 17 gm 03/24/25 09:00 Polyethylene Glycol 3350 17 Gm Powd.Pack PO QAM [facility] Senna/Docusate Sodium 2 tab 03/24/25 09:00 Senna/Docusate Sodium Tablet PO BID [facility] Simvastatin 20 mg 03/22/25 21:00 03/23/25 21:27 Simvastatin 20 Mg Tablet PO 20 mg QHS [facility] Administration Vitamin D 50 mcg 03/23/25 09:00 03/23/25 07:43 Cholecalciferol (Vitamin D3) 25 Mcg (1,000 Units) Tablet PO Not Given DAILY [facility] Radiology Results: ITS Impressions Chest X-Ray 03/22/25 13:36 IMPRESSION: 1. No acute cardiopulmonary findings given portable technique. Hip CT 03/22/25 14:11 IMPRESSION: Right femoral neck fracture Hip X-Ray 03/22/25 14:12 Impression: Right femoral neck fracture Head CT 03/22/25 14:16 Impression: No acute infarct or hemorrhage Hip/Pelvis X-Ray 03/23/25 20:05 IMPRESSION: 1. Normal alignment at the total hip arthroplasty device at the right hip. Labs Labs: Laboratory Results - last 24 hr 03/24/25 05:15 WBC 12.6 H RBC 4.32 Hgb 13.0 Hct 39.7 MCV 91.9 MCH 30.1 MCHC 32.7 RDW 12.0 Plt Count 161 MPV 10.3 Immature Gran % (Auto) 0.6 H Neut % (Auto) 93.2 H Lymph % (Auto) 2.2 L [place] % (Auto) 3.9 Eos % (Auto) 0.0 Baso % (Auto) 0.1 L Lymph # (Auto) 0.28 L [place] # (Auto) 0.5 Eos # (Auto) 0.0 Baso # (Auto) 0.0 Abs Immat Gran (auto) 0.07 H Absolute Neuts (auto) 11.8 H Absolute Nucleated RBC 0.000 Nucleated RBC % 0.0 Sodium 134 L Potassium 3.7 Chloride 104 Carbon Dioxide 25 Anion Gap 5 BUN 19 H Creatinine 0.57 L Estim Creat Clear Calc Not Reportable Estimated GFR > 60 Glucose 134 H Calcium 7.8 L Magnesium 2.0 Total Bilirubin 1.1 AST 23 ALT 7 Alkaline Phosphatase 89 Total Protein 6.6 Albumin 3.5
[2025-03-24] MEDS: CHOLECALCIFEROL (VITAMIN D3) 25 MCG (1,000 UNITS) TABLET 50 MCG PO (08:38)
[2025-03-24] MEDS: ESCITALOPRAM OXALATE 10 MG TABLET PO (08:38)
[2025-03-24] MEDS: SENNA/DOCUSATE SODIUM TABLET 2 TAB PO ×2 (08:38→17:30)
[2025-03-24] MEDS: HYDROcodone/acetaminophen (*CRX) 10-325 MG TABLET 1 TAB PO ×2 (08:39→17:30)
[2025-03-24] MEDS: ASPIRIN 81 MG ENTERIC TABLET PO ×2 (08:39→20:24)
[2025-03-24] MEDS: DOCUSATE SODIUM 100 MG CAPSULE PO ×2 (08:39→20:24)
[2025-03-24] MEDS: cefTRIAXone 1 GM in SODIUM CHLORIDE 0.9% IV 50 ML 100 ML IVPB (09:00)
[2025-03-24 09:25] VITALS: BP 132/66; PULSE 84; RESP 16; TEMP 36.7; O2SAT 91
--- NOTE | 2025-03-24 13:14 | WPDANESPN ---
Anes - Prog Note Post-Op Date/Time: 03/24/25 13:14 Cardiovascular status: normal Respiratory status: normal Airway patency: baseline Mental status: baseline Post-Op hydration status: normal Vital Signs: Last Vital Signs Temp 36.7 C 03/24/25 09:25 Pulse 84 03/24/25 09:25 Resp 16 03/24/25 09:25 BP 132/66 03/24/25 09:25 Pulse Ox 91 03/24/25 09:25 O2 Del Method Room Air 03/24/25 11:00 O2 Flow Rate 8 03/23/25 19:45 FiO2 21 03/23/25 22:22 Pain Score (VAS): 0 I/O: Intake & Output 03/23/25 03/24/25 03/24/25 23:59 07:59 15:59 Intake Total 50 1600 770 Output Total 300 1400 Balance -250 200 770 Laboratory Tests 03/24/25 05:15 03/24/25 05:15 03/24/25 05:15 WBC 12.6 H RBC 4.32 Hgb 13.0 Hct 39.7 MCV 91.9 MCH 30.1 MCHC 32.7 RDW 12.0 Plt Count 161 MPV 10.3 Immature Gran % (Auto) 0.6 H Neut % (Auto) 93.2 H Lymph % (Auto) 2.2 L [place] % (Auto) 3.9 Eos % (Auto) 0.0 Baso % (Auto) 0.1 L Lymph # (Auto) 0.28 L [place] # (Auto) 0.5 Eos # (Auto) 0.0 Baso # (Auto) 0.0 Abs Immat Gran (auto) 0.07 H Absolute Neuts (auto) 11.8 H Absolute Nucleated RBC 0.000 Nucleated RBC % 0.0 Sodium 134 L Potassium 3.7 Chloride 104 Carbon Dioxide 25 Anion Gap 5 BUN 19 H Creatinine 0.57 L Estim Creat Clear Calc Not Reportable Estimated GFR > 60 Glucose 134 H Calcium 7.8 L Magnesium 2.0 Total Bilirubin 1.1 AST 23 ALT 7 Alkaline Phosphatase 89 Total Protein 6.6 Albumin 3.5 Post-procedural complaints: none Patient Feedback: Patient satisfied with anesthetic care.
[2025-03-24 13:25] VITALS: BP 113/57; PULSE 87; RESP 14; TEMP 37; O2SAT 96
[2025-03-24] MEDS: SIMVASTATIN 20 MG TABLET PO (20:24)
[2025-03-24 21:13] VITALS: BP 121/86; PULSE 95; RESP 14; TEMP 36.3; O2SAT 95
[2025-03-24] MEDS: CARBIDOPA/LEVODOPA 25/100 MG CR TABLET 1 TABLET PO (22:26)
[2025-03-25 04:00] VITALS: BP 115/57; PULSE 87; RESP 16; TEMP 36.5; O2SAT 91
[2025-03-25] MEDS: CARBIDOPA/LEVODOPA 25/100 MG TABLET 1 TABLET PO ×6 (04:48→20:10)
[2025-03-25] MEDS: HYDROcodone/acetaminophen (*CRX) 5-325 MG TABLET 1 TAB PO ×3 (04:48→16:17)
--- NOTE | 2025-03-25 05:38 | P.PNOP_ITS ---
Progress Note: A&P Assessment and Plan (1) Status post-operative repair of closed fracture of right hip: Code(s): Z98.890 - Other specified postprocedural states; Z87.81 - Personal history of (healed) traumatic fracture Status: Acute Plan The patient is doing very well after surgery. Her main challenge will be recovering in the setting of Parkinson's disease with the issues of balance and ambulation. I advise the patient that she should be using her walker full-time, not just as needed, and that she should undergo physical therapy to gain her proprioceptive sense when she is ambulating. I will see her in my office two w eeks from her surgical date. Subjective Subjective Date/Time Seen: 03/24/25 5:30pm Post Op day: 1 (Right Hip Joseph) Interval history: The patient is resting in bed comfortably with minimal to no pain and she is awake and alert. She states that she ambulated today with physical therapy and things went very well Exam Narrative: Right Hip bandaged and dry Objective Data Vital Signs Vital Signs: Vital Signs - 24 hr 03/24/25 08:40 03/24/25 09:25 03/24/25 09:31 Temperature 36.7 C Pulse Rate 84 Respiratory Rate 16 Blood Pressure 132/66 Pulse Oximetry 91 Oxygen Delivery Room Air Room Air 03/24/25 11:00 03/24/25 13:25 03/24/25 21:13 Temperature 37.0 C 36.3 C L Pulse Rate 87 95 Respiratory Rate 14 14 Blood Pressure 113/57 L 121/86 Pulse Oximetry 96 95 Oxygen Delivery Room Air 03/25/25 04:00 Temperature 36.5 C Pulse Rate 87 Respiratory Rate 16 Blood Pressure 115/57 L Pulse Oximetry 91 Oxygen Delivery Intake/Output Intake/Output: Intake & Output 03/22/25 03/23/25 03/24/25 03/25/25 23:59 23:59 23:59 23:59 Intake Total 0 100 4310 Output Total 1400 2650 500 Balance 0 -1300 1660 -500 Meds/Results Medications: Active Medications Generic Name Dose Route Start Last Admin Trade Name Freq PRN Reason Stop Dose Admin Acetaminophen 500 mg 03/23/25 19:40 03/24/25 07:28 Acetaminophen 500 Mg Tablet PO 500 mg Q6H PRN Administration Pain Rated 1-3 Hydrocodone Bitart/Acetaminophen 1 tab 03/23/25 19:40 03/25/25 04:48 Hydrocodone/Acetaminophen (*Crx) 5-325 Mg Tablet PO 1 tab Q4H PRN Administration Pain Rated 4-6 Hydrocodone Bitart/Acetaminophen 1 tab 03/23/25 19:40 03/24/25 17:30 Hydrocodone/Acetaminophen (*Crx) 10-325 Mg Tablet PO 1 tab Q4H PRN Administration Pain Rated 7-10 Al Hydrox/Mg Hydrox/Simethicone 30 ml 03/23/25 19:40 Mag Hydrox/Al Hydrox/Simeth 30 Ml Udc PO Q6H PRN Indigestion Aspirin 81 mg 03/23/25 21:00 03/24/25 20:24 Aspirin 81 Mg Enteric Tablet PO 81 mg Q12HR RAPHAEL Administration Carbidopa/Levodopa 1 tablet 03/23/25 05:00 03/25/25 04:48 Carbidopa/Levodopa 25/100 Mg Tablet PO 1 tablet DAILY@05,0730,1000 RAPHAEL Administration Carbidopa/Levodopa 1 tablet 03/23/25 12:30 03/24/25 17:30 Carbidopa/Levodopa 25/100 Mg Tablet PO 1 tablet DAILY@1230,15,1730 RAPHAEL Administration Carbidopa/Levodopa 1 tablet 03/22/25 20:00 03/24/25 23:23 Carbidopa/Levodopa 25/100 Mg Tablet PO 1 tablet DAILY@20,2230 RAPHAEL Administration Carbidopa/Levodopa 1 tablet 03/22/25 23:00 03/24/25 22:26 Carbidopa/Levodopa 25/100 Mg Cr Tablet PO 1 tablet DAILY@2300 RAPHAEL Administration Docusate Sodium 100 mg 03/22/25 21:00 03/24/25 20:24 Docusate Sodium 100 Mg Capsule PO 100 mg Q12HR RAPHAEL Administration Escitalopram Oxalate 10 mg 03/23/25 09:00 03/24/25 08:38 Escitalopram Oxalate 10 Mg Tablet PO 10 mg DAILY RAPHAEL Administration Fentanyl Citrate 25 mcg 03/23/25 17:30 Fentanyl Citrate Inj (*Crx) 100 Mcg/2 Ml Vial IV PUSH Q2M PRN Pain Hydromorphone HCl 1 mg 03/23/25 19:40 Hydromorphone Hcl Inj (*Crx) 1 Mg/Ml Syr IV PUSH Q2H PRN Breakthrough Pain Rated 7-10 or NPO Hydromorphone HCl 0.5 mg 03/23/25 19:40 Hydromorphone Hcl Inj (*Crx) 1 Mg/Ml Syr IV PUSH Q2H PRN Breakthrough Pain Rated 4-6 or NPO Ceftriaxone Sodium 1 gm/ 50 mls @ 100 mls/hr 03/23/25 10:00 03/24/25 09:30 Sodium Chloride IVPB Infused Q24H RAPHAEL Infusion Naloxone HCl 0.1 mg 03/23/25 19:40 Naloxone Hcl 0.4 Mg/Ml Vial IV PUSH Q2M PRN Opiate Reversal Ondansetron HCl 4 mg 03/23/25 17:30 Ondansetron Inj 4 Mg/2 Ml Vial IV PUSH ONCE PRN Nausea Polyethylene Glycol 17 gm 03/24/25 09:00 03/24/25 08:39 Polyethylene Glycol 3350 17 Gm Powd.Pack PO 17 gm QAM RAPHAEL Administration Senna/Docusate Sodium 2 tab 03/24/25 09:00 03/24/25 17:30 Senna/Docusate Sodium Tablet PO 2 tab BID RAPHAEL Administration Simvastatin 20 mg 03/22/25 21:00 03/24/25 20:24 Simvastatin 20 Mg Tablet PO 20 mg QHS RAPHAEL Administration Vitamin D 50 mcg 03/23/25 09:00 03/24/25 08:38 Cholecalciferol (Vitamin D3) 25 Mcg (1,000 Units) Tablet PO 50 mcg DAILY RAPHAEL Administration Radiology Results: ITS Impressions Chest X-Ray 03/22/25 13:36 IMPRESSION: 1. No acute cardiopulmonary findings given portable technique. Hip CT 03/22/25 14:11 IMPRESSION: Right femoral neck fracture Hip X-Ray 03/22/25 14:12 Impression: Right femoral neck fracture Head CT 03/22/25 14:16 Impression: No acute infarct or hemorrhage Hip/Pelvis X-Ray 03/23/25 20:05 IMPRESSION: 1. Normal alignment at the total hip arthroplasty device at the right hip. Labs Labs: Laboratory Results - last 24 hr 03/24/25 05:15 WBC 12.6 H RBC 4.32 Hgb 13.0 Hct 39.7 MCV 91.9 MCH 30.1 MCHC 32.7 RDW 12.0 Plt Count 161 MPV 10.3 Immature Gran % (Auto) 0.6 H Neut % (Auto) 93.2 H Lymph % (Auto) 2.2 L [place] % (Auto) 3.9 Eos % (Auto) 0.0 Baso % (Auto) 0.1 L Lymph # (Auto) 0.28 L [place] # (Auto) 0.5 Eos # (Auto) 0.0 Baso # (Auto) 0.0 Abs Immat Gran (auto) 0.07 H Absolute Neuts (auto) 11.8 H Absolute Nucleated RBC 0.000 Nucleated RBC % 0.0 Sodium 134 L Potassium 3.7 Chloride 104 Carbon Dioxide 25 Anion Gap 5 BUN 19 H Creatinine 0.57 L Estim Creat Clear Calc Not Reportable Estimated GFR > 60 Glucose 134 H Calcium 7.8 L Magnesium 2.0 Total Bilirubin 1.1 AST 23 ALT 7 Alkaline Phosphatase 89 Total Protein 6.6 Albumin 3.5
[2025-03-25 06:53] LABS: Hematocrit 32.2 % (37.0-47.0); Hemoglobin 10.6 g/dL (12.0-15.0); Immature Granulocyte Percent A 0.6 % (0-0.5); Lymphocytes Absolute Auto 0.98 K/mm3 (0.9-3.2); Mean Corpuscular HGB Conc 32.9 g/dl (32-36); Mean Corpuscular Hemoglobin 30.4 pg (26-34); Mean Corpuscular Volume 92.3 fl (80-100); Nucleated Red Blood Cells Absolute Auto 0.000 K/mm3 (0.0-0.012); Nucleated Red Blood Cells Perc 0.0 % (0.0-0.2); Platelet Count Result 141 k/mm3 (150-375); Red Blood Count 3.49 M/mm3 (4.2-5.4); White Blood Count 10.9 K/mm3 (4.5-10.0)
[2025-03-25 07:02] LABS: Albumin Level 2.9 g/dL (3.5-5.1); Alkaline Phosphatase 70 U/L (38-126); Anion Gap 1 mmol/L (4-12); Aspartate Amino Transferase 21 U/L (14-36); Bilirubin,Total 0.7 mg/dL (0.2-1.3); Blood Urea Nitrogen 16 mg/dL (7-17); Calcium 7.7 mg/dL (8.4-10.2); Carbon Dioxide 28 mmol/L (22-30); Chloride 104 mmol/L (98-107); Estimated Glomerular Filt Rate > 60; Glucose 102 mg/dL (65-110); Magnesium 2.2 mg/dL (1.6-2.3); Potassium 3.6 mmol/L (3.4-5.0); Sodium 133 mmol/L (137-145); Total Protein 5.7 g/dL (6.3-8.2)
[2025-03-25 07:07] LABS: Alanine Aminotransferase < 6 U/L (6-35)
--- NOTE | 2025-03-25 08:35 | P.PNIM_ITS ---
Assessment and Plan Assessment and Plan (1) Closed fracture of neck of right femur: Qualifiers: Encounter type: initial encounter Qualified Code(s): S72.001A - Fracture of unspecified part of neck of right femur, initial encounter for c losed fracture Code(s): S72.001A - Fracture of unspecified part of neck of right femur, initial encounter for closed fracture Status: Acute Assessment and Plan: Patient here after a ground level mechanical fall with head strike, no loss of consciousness. Trauma workup included a hip/pelvic XR, CXR, hip CT, and head CT. Imaging remarkable for a nondisplaced right femoral neck fracture. Patient admitted for surgical management via orthopedic team. - orthopedics consulted. Status post right hip surgery 03/23/2025 - analgesics p.r.n.: Tylenol, [place], morphine On aspirin 81 mg b.i.d. for DVT prophylaxis (2) Parkinson disease: Qualifiers: Dyskinesia presence: unspecified whether dyskinesia Fluctuating manifestations: unspecified whether manifestations fluctuate Qualified Code(s): G20.A1 - Parkinson's disease without dyskinesia, without mention of fluctuations Code(s): G20 - Parkinson's disease Status: Chronic Assessment and Plan: History of Parkinson's Disease. Previously treated with a deep brain stimulator placement in 2022. Follows with Neurology at [facility]. - continue carbidopa levodopa, takes Q2.5H (3) Dyslipidemia: Code(s): E78.5 - Hyperlipidemia, unspecified Status: Chronic Assessment and Plan: - continue home medication: Simvastatin 20 mg HS (4) Depression: Qualifiers: Depression Type: reactive depression Qualified Code(s): F32.9 - Major depressive disorder, single episode, unspecified Code(s): F32.A - Depression, unspecified Status: Chronic Assessment and Plan: Chronic, stable. - continue home medication: Lexapro 10 mg daily Plan Dirty UA urine culture with insignificant growth. Continue ceftriaxone and finish the course will switch to oral Diet: Regular, NPO midnight GI Prophylaxis: N/a DVT Prophylaxis: SCDs IV fluids: None Lines/Tubes: pIV Code Status: Full code Subjective Date/time seen: 03/25/25 08:35 Interval history: No overnight events. Working with therapy. Denies any chest pain or shortness of breath. Review of Systems Review of Systems: All systems reviewed & are unremarkable except as noted in HPI and below Exam Narrative: APPEARANCE: Well appearing, no pain, no distress, well-nourished. HEAD: normocephalic, atraumatic. EYES: PERRLA/EOMI, conjunctivae clear. NECK: Supple. No adenopathy, no masses. RESPIRATORY: Airway patent, respirations nonlabored. Clear to auscultation bilaterally, no rales, rhonchi, wheezing. CARDIOVASCULAR: Regular rate and rhythm without murmurs rubs or gallops. ABDOMINAL: Soft, nontender, nondistended, normal bowel sounds MUSCULOSKELETAL: Right hip with dressing in place which is clean dry and intact. NEURO: Alert. Cranial nerves II through XII intact. SKIN: Warm, dry. Normal Color Objective Data Vital Signs Vital Signs: Vital Signs - 24 hr 03/24/25 08:40 03/24/25 09:25 03/24/25 09:31 Temperature 98.1 F Pulse Rate 84 Respiratory Rate 16 Blood Pressure 132/66 Pulse Oximetry 91 Oxygen Delivery Room Air Room Air 03/24/25 11:00 03/24/25 13:25 03/24/25 21:13 Temperature 98.6 F 97.4 F L Pulse Rate 87 95 Respiratory Rate 14 14 Blood Pressure 113/57 L 121/86 Pulse Oximetry 96 95 Oxygen Delivery Room Air 03/25/25 04:00 Temperature 97.7 F Pulse Rate 87 Respiratory Rate 16 Blood Pressure 115/57 L Pulse Oximetry 91 Oxygen Delivery Intake/Output Intake/Output: Intake & Output 03/22/25 03/23/25 03/24/25 03/25/25 23:59 23:59 23:59 23:59 Intake Total 0 100 4310 Output Total 1400 2650 500 Balance 0 -1300 1660 -500 Meds/Results Medications: Active Medications Generic Name Dose Route Start Last Admin Trade Name Freq PRN Reason Stop Dose Admin Acetaminophen 500 mg 03/23/25 19:40 03/24/25 07:28 Acetaminophen 500 Mg Tablet PO 500 mg Q6H PRN Administration Pain Rated 1-3 Hydrocodone Bitart/Acetaminophen 1 tab 03/23/25 19:40 03/25/25 04:48 Hydrocodone/Acetaminophen (*Crx) 5-325 Mg Tablet PO 1 tab Q4H PRN Administration Pain Rated 4-6 Hydrocodone Bitart/Acetaminophen 1 tab 03/23/25 19:40 03/24/25 17:30 Hydrocodone/Acetaminophen (*Crx) 10-325 Mg Tablet PO 1 tab Q4H PRN Administration Pain Rated 7-10 Al Hydrox/Mg Hydrox/Simethicone 30 ml 03/23/25 19:40 Mag Hydrox/Al Hydrox/Simeth 30 Ml Udc PO Q6H PRN Indigestion Aspirin 81 mg 03/23/25 21:00 03/24/25 20:24 Aspirin 81 Mg Enteric Tablet PO 81 mg Q12HR RAPHAEL Administration Carbidopa/Levodopa 1 tablet 03/23/25 05:00 03/25/25 04:48 Carbidopa/Levodopa 25/100 Mg Tablet PO 1 tablet DAILY@05,0730,1000 RAPHAEL Administration Carbidopa/Levodopa 1 tablet 03/23/25 12:30 03/24/25 17:30 Carbidopa/Levodopa 25/100 Mg Tablet PO 1 tablet DAILY@1230,15,1730 RAPHAEL Administration Carbidopa/Levodopa 1 tablet 03/22/25 20:00 03/24/25 23:23 Carbidopa/Levodopa 25/100 Mg Tablet PO 1 tablet DAILY@20,2230 RAPHAEL Administration Carbidopa/Levodopa 1 tablet 03/22/25 23:00 03/24/25 22:26 Carbidopa/Levodopa 25/100 Mg Cr Tablet PO 1 tablet DAILY@2300 RAPHAEL Administration Docusate Sodium 100 mg 03/22/25 21:00 03/24/25 20:24 Docusate Sodium 100 Mg Capsule PO 100 mg Q12HR RAPHAEL Administration Escitalopram Oxalate 10 mg 03/23/25 09:00 03/24/25 08:38 Escitalopram Oxalate 10 Mg Tablet PO 10 mg DAILY RAPHAEL Administration Fentanyl Citrate 25 mcg 03/23/25 17:30 Fentanyl Citrate Inj (*Crx) 100 Mcg/2 Ml Vial IV PUSH Q2M PRN Pain Hydromorphone HCl 1 mg 03/23/25 19:40 Hydromorphone Hcl Inj (*Crx) 1 Mg/Ml Syr IV PUSH Q2H PRN Breakthrough Pain Rated 7-10 or NPO Hydromorphone HCl 0.5 mg 03/23/25 19:40 Hydromorphone Hcl Inj (*Crx) 1 Mg/Ml Syr IV PUSH Q2H PRN Breakthrough Pain Rated 4-6 or NPO Ceftriaxone Sodium 1 gm/ 50 mls @ 100 mls/hr 03/23/25 10:00 03/24/25 09:30 Sodium Chloride IVPB Infused Q24H RAPHAEL Infusion Naloxone HCl 0.1 mg 03/23/25 19:40 Naloxone Hcl 0.4 Mg/Ml Vial IV PUSH Q2M PRN Opiate Reversal Ondansetron HCl 4 mg 03/23/25 17:30 Ondansetron Inj 4 Mg/2 Ml Vial IV PUSH ONCE PRN Nausea Polyethylene Glycol 17 gm 03/24/25 09:00 03/24/25 08:39 Polyethylene Glycol 3350 17 Gm Powd.Pack PO 17 gm QAM RAPHAEL Administration Senna/Docusate Sodium 2 tab 03/24/25 09:00 03/24/25 17:30 Senna/Docusate Sodium Tablet PO 2 tab BID RAPHAEL Administration Simvastatin 20 mg 03/22/25 21:00 03/24/25 20:24 Simvastatin 20 Mg Tablet PO 20 mg QHS RAPHAEL Administration Vitamin D 50 mcg 03/23/25 09:00 03/24/25 08:38 Cholecalciferol (Vitamin D3) 25 Mcg (1,000 Units) Tablet PO 50 mcg DAILY RAPHAEL Administration Radiology Results: ITS Impressions Chest X-Ray 03/22/25 13:36 IMPRESSION: 1. No acute cardiopulmonary findings given portable technique. Hip CT 03/22/25 14:11 IMPRESSION: Right femoral neck fracture Hip X-Ray 03/22/25 14:12 Impression: Right femoral neck fracture Head CT 03/22/25 14:16 Impression: No acute infarct or hemorrhage Hip/Pelvis X-Ray 03/23/25 20:05 IMPRESSION: 1. Normal alignment at the total hip arthroplasty device at the right hip. Labs Labs: Laboratory Results - last 24 hr 03/25/25 06:05 WBC 10.9 H RBC 3.49 L Hgb 10.6 L Hct 32.2 L MCV 92.3 MCH 30.4 MCHC 32.9 RDW 12.5 Plt Count 141 L MPV 10.5 H Immature Gran % (Auto) 0.6 H Neut % (Auto) 79.5 H Lymph % (Auto) 9.0 L [place] % (Auto) 7.4 Eos % (Auto) 3.3 Baso % (Auto) 0.2 Lymph # (Auto) 0.98 [place] # (Auto) 0.8 H Eos # (Auto) 0.4 H Baso # (Auto) 0.0 Abs Immat Gran (auto) 0.06 H Absolute Neuts (auto) 8.7 H Absolute Nucleated RBC 0.000 Nucleated RBC % 0.0 Sodium 133 L Potassium 3.6 Chloride 104 Carbon Dioxide 28 Anion Gap 1 L BUN 16 Creatinine 0.59 L Estim Creat Clear Calc Not Reportable Estimated GFR > 60 Glucose 102 Calcium 7.7 L Magnesium 2.2 Total Bilirubin 0.7 AST 21 ALT < 6 L Alkaline Phosphatase 70 Total Protein 5.7 L Albumin 2.9 L
[2025-03-25] MEDS: CHOLECALCIFEROL (VITAMIN D3) 25 MCG (1,000 UNITS) TABLET 50 MCG PO (08:55)
[2025-03-25] MEDS: DOCUSATE SODIUM 100 MG CAPSULE PO ×2 (08:55→20:10)
[2025-03-25] MEDS: SENNA/DOCUSATE SODIUM TABLET 2 TAB PO ×2 (08:55→16:17)
[2025-03-25] MEDS: ASPIRIN 81 MG ENTERIC TABLET PO ×2 (08:55→20:10)
[2025-03-25] MEDS: ESCITALOPRAM OXALATE 10 MG TABLET PO (08:55)
[2025-03-25] MEDS: CEPHALEXIN 500 MG CAPSULE PO ×2 (08:58→20:10)
[2025-03-25 13:41] VITALS: BP 125/57; PULSE 89; RESP 16; TEMP 36.3; O2SAT 96
[2025-03-25 20:00] VITALS: PULSE 99; RESP 14; O2SAT 93
[2025-03-25] MEDS: SIMVASTATIN 20 MG TABLET PO (20:10)
[2025-03-25 20:19] VITALS: BP 130/60; PULSE 99; RESP 14; TEMP 36.3; O2SAT 93
[2025-03-25] MEDS: CARBIDOPA/LEVODOPA 25/100 MG CR TABLET 1 TABLET PO (22:21)
[2025-03-26] MEDS: HYDROcodone/acetaminophen (*CRX) 5-325 MG TABLET 1 TAB PO ×2 (04:34→09:25)
[2025-03-26] MEDS: CARBIDOPA/LEVODOPA 25/100 MG TABLET 1 TABLET PO ×7 (04:34→23:05)
[2025-03-26 05:21] VITALS: BP 130/69; PULSE 93; RESP 17; TEMP 37.4; O2SAT 93
[2025-03-26 05:34] LABS: Hematocrit 32.4 % (37.0-47.0); Hemoglobin 10.4 g/dL (12.0-15.0); Immature Granulocyte Percent A 0.7 % (0-0.5); Lymphocytes Absolute Auto 0.83 K/mm3 (0.9-3.2); Mean Corpuscular HGB Conc 32.1 g/dl (32-36); Mean Corpuscular Hemoglobin 30.0 pg (26-34); Mean Corpuscular Volume 93.4 fl (80-100); Nucleated Red Blood Cells Absolute Auto 0.000 K/mm3 (0.0-0.012); Nucleated Red Blood Cells Perc 0.0 % (0.0-0.2); Platelet Count Result 152 k/mm3 (150-375); Red Blood Count 3.47 M/mm3 (4.2-5.4); White Blood Count 8.9 K/mm3 (4.5-10.0)
[2025-03-26 05:48] LABS: Albumin Level 2.8 g/dL (3.5-5.1); Alkaline Phosphatase 66 U/L (38-126); Anion Gap 0 mmol/L (4-12); Aspartate Amino Transferase 21 U/L (14-36); Bilirubin,Total 0.8 mg/dL (0.2-1.3); Blood Urea Nitrogen 15 mg/dL (7-17); Calcium 7.8 mg/dL (8.4-10.2); Carbon Dioxide 30 mmol/L (22-30); Chloride 103 mmol/L (98-107); Estimated Glomerular Filt Rate > 60; Glucose 102 mg/dL (65-110); Magnesium 2.0 mg/dL (1.6-2.3); Potassium 3.9 mmol/L (3.4-5.0); Sodium 133 mmol/L (137-145); Total Protein 5.4 g/dL (6.3-8.2)
[2025-03-26 05:51] LABS: Alanine Aminotransferase < 6 U/L (6-35)
[2025-03-26] MEDS: CEPHALEXIN 500 MG CAPSULE PO ×2 (09:25→20:18)
[2025-03-26] MEDS: ESCITALOPRAM OXALATE 10 MG TABLET PO (09:25)
[2025-03-26] MEDS: SENNA/DOCUSATE SODIUM TABLET 2 TAB PO ×2 (09:25→17:42)
[2025-03-26] MEDS: CHOLECALCIFEROL (VITAMIN D3) 25 MCG (1,000 UNITS) TABLET 50 MCG PO (09:25)
[2025-03-26] MEDS: DOCUSATE SODIUM 100 MG CAPSULE PO ×2 (09:25→20:17)
[2025-03-26] MEDS: ASPIRIN 81 MG ENTERIC TABLET PO ×2 (09:26→20:18)
[2025-03-26 14:00] VITALS: BP 104/40; PULSE 87; RESP 18; TEMP 37; O2SAT 96
--- NOTE | 2025-03-26 14:54 | PM.IMPN2 ---
Assessment and Plan Assessment and Plan (1) Closed fracture of neck of right femur: Qualifiers: Encounter type: initial encounter Qualified Code(s): S72.001A - Fracture of unspecified part of neck of right femur, initial encounter for closed fracture Code(s): S72.001A - Fracture of unspecified part of neck of right femur, initial encounter for closed fracture Status: Acute Assessment and Plan: Patient here after a ground level mechanical fall with head strike, no loss of consciousness. Trauma workup included a hip/pelvic XR, CXR, hip CT, and head CT. Imaging remarkable for a nondisplaced right femoral neck fracture. Patient admitted for surgical management via orthopedic team. - orthopedics consulted. Status post right hip surgery 03/23/2025 - analgesics p.r.n.: Tylenol, [place], morphine On aspirin 81 mg b.i.d. for DVT prophylaxis (2) Parkinson disease: Qualifiers: Dyskinesia presence: unspecified whether dyskinesia Fluctuating manifestations: unspecified whether manifestations fluctuate Qualified Code(s): G20.A1 - Parkinson's disease without dyskinesia, without mention of fluctuations Code(s): G20 - Parkinson's disease Status: Chronic Assessment and Plan: History of Parkinson's Disease. Previously treated with a deep brain stimulator placement in 2022. Follows with Neurology at [facility]. - continue carbidopa levodopa, takes Q2.5H (3) Dyslipidemia: Code(s): E78.5 - Hyperlipidemia, unspecified Status: Chronic Assessment and Plan: - continue home medication: Simvastatin 20 mg HS (4) Depression: Qualifiers: Depression Type: reactive depression Qualified Code(s): F32.9 - Major depressive disorder, single episode, unspecified Code(s): F32.A - Depression, unspecified Status: Chronic Assessment and Plan: Chronic, stable. - continue home medication: Lexapro 10 mg daily Plan Dirty UA urine culture with insignificant growth. Continue ceftriaxone and finish the course will switch to oral Diet: Regular, NPO midnight GI Prophylaxis: N/a DVT Prophylaxis: SCDs IV fluids: None Lines/Tubes: pIV Code Status: Full code Disposition: dc to TIP planned. stablef or discharge. awaiting insurance authorization. Subjective Date/time seen: 03/26/25 14:54 Interval history: No overnight events. Working with therapy. Denies any chest pain or shortness of breath. Review of Systems Review of Systems: All systems reviewed & are unremarkable except as noted in HPI and below Exam Narrative: APPEARANCE: Well appearing, no pain, no distress, well-nourished. HEAD: normocephalic, atraumatic. EYES: PERRLA/EOMI, conjunctivae clear. NECK: Supple. No adenopathy, no masses. RESPIRATORY: Airway patent, respirations nonlabored. Clear to auscultation bilaterally, no rales, rhonchi, wheezing. CARDIOVASCULAR: Regular rate and rhythm without murmurs rubs or gallops. ABDOMINAL: Soft, nontender, nondistended, normal bowel sounds MUSCULOSKELETAL: Right hip with dressing in place which is clean dry and intact. NEURO: Alert. Cranial nerves II through XII intact. SKIN: Warm, dry. Normal Color Objective Data Vital Signs Vital Signs: Vital Signs - 24 hr 03/25/25 20:00 03/25/25 20:19 03/26/25 05:21 Temperature 97.3 F L 99.3 F Pulse Rate 99 99 93 Respiratory Rate 14 14 17 Blood Pressure 130/60 130/69 Pulse Oximetry 93 93 93 Oxygen Delivery Room Air 03/26/25 09:25 03/26/25 14:00 Temperature 98.6 F Pulse Rate 87 Respiratory Rate 18 Blood Pressure 104/40 L Pulse Oximetry 96 Oxygen Delivery Room Air Intake/Output Intake/Output: Intake & Output 03/23/25 03/24/25 03/25/25 03/26/25 23:59 23:59 23:59 23:59 Intake Total 100 4310 830 870 Output Total 1400 2650 825 300 Balance -1300 1660 5 570 Meds/Results Medications: Active Medications Generic Name Dose Route Start Last Admin Trade Name Freq PRN Reason Stop Dose Admin Acetaminophen 500 mg 03/23/25 19:40 03/24/25 07:28 Acetaminophen 500 Mg Tablet PO 500 mg Q6H PRN Administration Pain Rated 1-3 Hydrocodone Bitart/Acetaminophen 1 tab 03/23/25 19:40 03/26/25 09:25 Hydrocodone/Acetaminophen (*Crx) 5-325 Mg Tablet PO 1 tab Q4H PRN Administration Pain Rated 4-6 Hydrocodone Bitart/Acetaminophen 1 tab 03/23/25 19:40 03/24/25 17:30 Hydrocodone/Acetaminophen (*Crx) 10-325 Mg Tablet PO 1 tab Q4H PRN Administration Pain Rated 7-10 Al Hydrox/Mg Hydrox/Simethicone 30 ml 03/23/25 19:40 Mag Hydrox/Al Hydrox/Simeth 30 Ml Udc PO Q6H PRN Indigestion Aspirin 81 mg 03/23/25 21:00 03/26/25 09:26 Aspirin 81 Mg Enteric Tablet PO 81 mg Q12HR RAPHAEL Administration Carbidopa/Levodopa 1 tablet 03/23/25 05:00 03/26/25 12:04 Carbidopa/Levodopa 25/100 Mg Tablet PO 1 tablet DAILY@05,0730,1000 RAPHAEL Administration Carbidopa/Levodopa 1 tablet 03/23/25 12:30 03/26/25 13:57 Carbidopa/Levodopa 25/100 Mg Tablet PO 1 tablet DAILY@1230,15,1730 RAPHAEL Administration Carbidopa/Levodopa 1 tablet 03/22/25 20:00 03/25/25 22:24 Carbidopa/Levodopa 25/100 Mg Tablet PO Not Given DAILY@20,2230 RAPHAEL Carbidopa/Levodopa 1 tablet 03/22/25 23:00 03/25/25 22:21 Carbidopa/Levodopa 25/100 Mg Cr Tablet PO 1 tablet DAILY@2300 RAPHAEL Administration Cephalexin HCl 500 mg 03/25/25 09:00 03/26/25 09:25 Cephalexin 500 Mg Capsule PO 03/30/25 08:59 500 mg Q12HR RAPHAEL Administration Docusate Sodium 100 mg 03/22/25 21:00 03/26/25 09:25 Docusate Sodium 100 Mg Capsule PO 100 mg Q12HR RAPHAEL Administration Escitalopram Oxalate 10 mg 03/23/25 09:00 03/26/25 09:25 Escitalopram Oxalate 10 Mg Tablet PO 10 mg DAILY RAPHAEL Administration Fentanyl Citrate 25 mcg 03/23/25 17:30 Fentanyl Citrate Inj (*Crx) 100 Mcg/2 Ml Vial IV PUSH Q2M PRN Pain Hydromorphone HCl 1 mg 03/23/25 19:40 Hydromorphone Hcl Inj (*Crx) 1 Mg/Ml Syr IV PUSH Q2H PRN Breakthrough Pain Rated 7-10 or NPO Hydromorphone HCl 0.5 mg 03/23/25 19:40 Hydromorphone Hcl Inj (*Crx) 1 Mg/Ml Syr IV PUSH Q2H PRN Breakthrough Pain Rated 4-6 or NPO Naloxone HCl 0.1 mg 03/23/25 19:40 Naloxone Hcl 0.4 Mg/Ml Vial IV PUSH Q2M PRN Opiate Reversal Ondansetron HCl 4 mg 03/23/25 17:30 Ondansetron Inj 4 Mg/2 Ml Vial IV PUSH ONCE PRN Nausea Polyethylene Glycol 17 gm 03/24/25 09:00 03/26/25 09:26 Polyethylene Glycol 3350 17 Gm Powd.Pack PO 17 gm QAM RAPHAEL Administration Senna/Docusate Sodium 2 tab 03/24/25 09:00 03/26/25 09:25 Senna/Docusate Sodium Tablet PO 2 tab BID RAPHAEL Administration Simvastatin 20 mg 03/22/25 21:00 03/25/25 20:10 Simvastatin 20 Mg Tablet PO 20 mg QHS RAPHAEL Administration Vitamin D 50 mcg 03/23/25 09:00 03/26/25 09:25 Cholecalciferol (Vitamin D3) 25 Mcg (1,000 Units) Tablet PO 50 mcg DAILY RAPHAEL Administration Radiology Results: ITS Impressions Chest X-Ray 03/22/25 13:36 IMPRESSION: 1. No acute cardiopulmonary findings given portable technique. Hip CT 03/22/25 14:11 IMPRESSION: Right femoral neck fracture Hip X-Ray 03/22/25 14:12 Impression: Right femoral neck fracture Head CT 03/22/25 14:16 Impression: No acute infarct or hemorrhage Hip/Pelvis X-Ray 03/23/25 20:05 IMPRESSION: 1. Normal alignment at the total hip arthroplasty device at the right hip. Labs Labs: Laboratory Results - last 24 hr 03/26/25 05:12 WBC 8.9 RBC 3.47 L Hgb 10.4 L Hct 32.4 L MCV 93.4 MCH 30.0 MCHC 32.1 RDW 12.5 Plt Count 152 MPV 10.5 H Immature Gran % (Auto) 0.7 H Neut % (Auto) 74.1 H Lymph % (Auto) 9.3 L [place] % (Auto) 9.7 H Eos % (Auto) 5.5 H Baso % (Auto) 0.7 Lymph # (Auto) 0.83 L [place] # (Auto) 0.9 H Eos # (Auto) 0.5 H Baso # (Auto) 0.1 Abs Immat Gran (auto) 0.06 H Absolute Neuts (auto) 6.6 Absolute Nucleated RBC 0.000 Nucleated RBC % 0.0 Sodium 133 L Potassium 3.9 Chloride 103 Carbon Dioxide 30 Anion Gap 0 L BUN 15 Creatinine 0.51 L Estim Creat Clear Calc Not Reportable Estimated GFR > 60 Glucose 102 Calcium 7.8 L Magnesium 2.0 Total Bilirubin 0.8 AST 21 ALT < 6 L Alkaline Phosphatase 66 Total Protein 5.4 L Albumin 2.8 L
[2025-03-26] MEDS: SIMVASTATIN 20 MG TABLET PO (20:17)
[2025-03-26 20:22] VITALS: BP 144/83; PULSE 93; RESP 18; TEMP 37.1; O2SAT 96
[2025-03-26] MEDS: CARBIDOPA/LEVODOPA 25/100 MG CR TABLET 1 TABLET PO (23:06)
[2025-03-27] MEDS: CARBIDOPA/LEVODOPA 25/100 MG TABLET 1 TABLET PO ×5 (05:20→15:26)
[2025-03-27 05:24] VITALS: BP 149/82; PULSE 92; RESP 18; TEMP 36.8; O2SAT 93
[2025-03-27] MEDS: CHOLECALCIFEROL (VITAMIN D3) 25 MCG (1,000 UNITS) TABLET 50 MCG PO (08:15)
[2025-03-27] MEDS: ESCITALOPRAM OXALATE 10 MG TABLET PO (08:15)
[2025-03-27] MEDS: SENNA/DOCUSATE SODIUM TABLET 2 TAB PO (08:15)
[2025-03-27] MEDS: ASPIRIN 81 MG ENTERIC TABLET PO (08:16)
[2025-03-27] MEDS: CEPHALEXIN 500 MG CAPSULE PO (08:16)
[2025-03-27] MEDS: DOCUSATE SODIUM 100 MG CAPSULE PO (08:16)
--- NOTE | 2025-03-27 09:31 | PCPTNOTE ---
The patient treatment was not able to be completed at this time. Patient states she just returned to bed and is not feeling that good. Patient requests PT return later today. Will plan to continue treatment per plan of care.
[2025-03-27] MEDS: HYDROcodone/acetaminophen (*CRX) 5-325 MG TABLET 1 TAB PO (12:51)
--- NOTE | 2025-03-27 13:58 | PM.DS ---
DS: Admitting Diagnosis Discharge Date 03/27/2025 Admitting Diagnosis A fracture DS: Discharge Diagnosis Discharge Diagnosis (1) Closed fracture of neck of right femur: Qualifiers: Encounter type: initial encounter Qualified Code(s): S72.001A - Fracture of unspecified part of neck of right femur, initial encounter for closed fracture Code(s): S72.001A - Fracture of unspecified part of neck of right femur, initial encounter for closed fracture Status: Acute (2) Parkinson disease: Qualifiers: Dyskinesia presence: unspecified whether dyskinesia Fluctuating manifestations: unspecified whether manifestations fluctuate Qualified Code(s): G20.A1 - Parkinson's disease without dyskinesia, without mention of fluctuations Code(s): G20 - Parkinson's disease Status: Chronic (3) Dyslipidemia: Code(s): E78.5 - Hyperlipidemia, unspecified Status: Chronic (4) Depression: Qualifiers: Depression Type: reactive depression Qualified Code(s): F32.9 - Major depressive disorder, single episode, unspecified Code(s): F32.A - Depression, unspecified Status: Chronic DS: Summary Hospital Course Hospital Course: # Closed fracture of neck of right femur: Patient here after a ground level mechanical fall with head strike, no loss of consciousness. Trauma workup included a hip/pelvic XR, CXR, hip CT, and head CT. Imaging remarkable for a nondisplaced right femoral neck fracture. Patient admitted for surgical management via orthopedic team. - orthopedics consulted. Status post right hip surgery 03/23/2025 - analgesics p.r.n.: Tylenol, [place], morphine On aspirin 81 mg b.i.d. for DVT prophylaxis # Parkinson disease: History of Parkinson's Disease. Previously treated with a deep brain stimulator placement in 2022. Follows with Neurology at [facility]. - continue carbidopa levodopa, takes Q2.5H # Dyslipidemia: - continue home medication: Simvastatin 20 mg HS # Depression: Chronic, stable. - continue home medication: Lexapro 10 mg daily # UTI: Dirty UA urine culture with insignificant growth. Continue ceftriaxone and finish the course will switch to oral cephalexin which will continue to complete the course. Repeat UA has been sent follow urine culture due to complaints of urinary symptoms.. # Diet: Regular # DVT Prophylaxis: Aspirin 81 mg b.i.d. # Code Status: Full code # Disposition: dc to TIP. Time Spent with Patient Time attestation: Total time spent providing and/or coordinating discharge services: 45 minutes Exam Narrative: APPEARANCE: Well appearing, no pain, no distress, well-nourished. HEAD: normocephalic, atraumatic. EYES: PERRLA/EOMI, conjunctivae clear. NECK: Supple. No adenopathy, no masses. RESPIRATORY: Airway patent, respirations nonlabored. Clear to auscultation bilaterally, no rales, rhonchi, wheezing. CARDIOVASCULAR: Regular rate and rhythm without murmurs rubs or gallops. ABDOMINAL: Soft, nontender, nondistended, normal bowel sounds MUSCULOSKELETAL: Right hip with dressing in place which is clean dry and intact. NEURO: Alert. Cranial nerves II through XII intact. SKIN: Warm, dry. Normal Color DS: Data Imaging Radiologist's impression: ITS Impressions Chest X-Ray 03/22/25 13:36 IMPRESSION: 1. No acute cardiopulmonary findings given portable technique. Hip CT 03/22/25 14:11 IMPRESSION: Right femoral neck fracture Hip X-Ray 03/22/25 14:12 Impression: Right femoral neck fracture Head CT 03/22/25 14:16 Impression: No acute infarct or hemorrhage Hip/Pelvis X-Ray 03/23/25 20:05 IMPRESSION: 1. Normal alignment at the total hip arthroplasty device at the right hip. Discharge Plan Discharge Attending physician on discharge: Shahzad Mercer Consulting providers: Jackson Frank Discharging Clinician: Shahzad Mercer Anticipated Discharge Date/Time: 03/27/25 14:00 Patient Disposition: [facility] Activity: as tolerated Diet: regular Patient Instructions: Pain Management After Surgery (GEN) Patient Language: [place] Follow-up/Referrals: Asha Mclain MD [Primary Care Provider, Family Practice] - 1 Week Jackson Frank MD [Physician, Orthopedics] - 2 Weeks Discharge Medications: New hydrocodone-acetaminophen 5-325 mg Tablet 1 tablet PO Q4H PRN (Reason: Pain Rated 4-6) Qty: 20 0RF aspirin 81 mg Tablet,Delayed Release (Dr/Ec) 81 mg PO Q12HR Qty: 60 0RF cephalexin 500 mg Capsule 500 mg PO Q12HR Qty: 5 0RF acetaminophen 500 mg Tablet 500 mg PO Q6H PRN (Reason: Pain Rated 1-3) Qty: 30 0RF sennosides-docusate sodium [Senokot-S] 8.6-50 mg Tablet 2 tab PO BID Qty: 30 0RF polyethylene glycol 3350 [Miralax] 17 gram Powder In Packet 17 g PO QAM Qty: 30 0RF Continued cranberry fruit 400 mg capsule 400 mg PO DAILY Rx Instructions: administer with a meal cholecalciferol (vitamin D3) 50 mcg (2,000 unit) capsule 50 mcg PO DAILY Prolia 60 mg/mL syringe 60 mg subcut [id number] carbidopa-levodopa 25-100 mg tablet 1 tablet PO .Q2.5H Rx Instructions: every 2.5 hrs during day carbidopa-levodopa 25-100 mg tablet extended release 1 tablet PO HS Qty: 90 1RF cyanocobalamin (vitamin B-12) 1,000 mcg tablet, sublingual 1,000 mcg sublingual .every other day Qty: 45 1RF escitalopram oxalate 10 mg tablet 10 mg PO DAILY Qty: 90 1RF simvastatin 20 mg tablet 20 mg PO QHS Qty: 90 1RF Discontinued acetaminophen 500 mg capsule 1,000 mg PO BID PRN (Reason: pain) Date of admission: 03/23/25 12:28 Primary Care Provider: Asha Mclain Admitting Provider: Romario Jones Attending physician on admission: Romario Jones Condition: Stable
[2025-03-27 14:00] VITALS: BP 100/57; PULSE 95; O2SAT 97
[2025-03-27 14:53] LABS: Add Urine Microscopic? YES; Appearance Urine Cloudy (Clear); Glucose Urine UA Negative (Negative); Leukocyte Esterase Ur Negative LEU/UL (Negative); Nitrate Urine Negative (Negative); Non Pathogenic Casts 0-2; Specific Grav Ur 1.014 (1.001-1.035)
== END 2025-03-27 16:54 | DRG 522 ==
LOC: ANHED 13:24 → ANH3MEDSUR 15:37 → ANH3MED 16:57
PROVIDERS: Orthopaedic Surgery; Student in an Organized Health Care Education/Training Program; Admitting Provider Internal Medicine; Emergency Provider Emergency Medicine; PCP Family Medicine; Visit Provider Internal Medicine
PROC: 0SRR0JA Replacement of Right Hip Joint, Femoral Surface with Synthetic Substitute, Uncemented, Open Approach (ICD-10-PCS; CPT 27125; principal; 2025-03-23 16:00)
DX: S72.001A Fracture of unspecified part of neck of right femur, initial encounter for closed fracture (principal); G20.A1 Parkinson's disease without dyskinesia, without mention of fluctuations; W01.0XXA Fall on same level from slipping, tripping and stumbling without subsequent striking against object, initial encounter; M19.90 Unspecified osteoarthritis, unspecified site; E78.5 Hyperlipidemia, unspecified; E55.9 Vitamin D deficiency, unspecified; F32.A Depression, unspecified; Z86.16 Personal history of COVID-19
CPT/HCPCS: 36415; 70450; 71045; 73501; 73502; 73700; 80048; 80053; 81001; 83735; 85025; 85610; 85730; 86850; 86900; 86901; 87086; 93005; 96374; 97110; 97116; 97162; 97166; 97530; 97535; 99285; J0690; A9270; C1776; G0378; J0696; J1100; J1885; J2003; J2004; J2270; J2405; J2704; J3010; J7030; J7120